=== PATIENT | female | born 1965 | race Caucasian/White ===

== ENCOUNTER 2017-09-14 22:03 | Inpatient (IN) | payer MEDICARE ==
[~2017-09-14] VITALS: Ht 152.4 cm; Wt 72.3 kg
--- NOTE | 2017-09-14 22:19 | ED.ADGEN ---
Past History Past Medical History: Other Adult General Chief Complaint Chief Complaint " I had a tiff with my room mate and then the nurse .. so they sent me here.. They said I threaten my room mate and called her a retard..." [facility] HPI Patient is a 52 year old female who presents with above hx and complaints. Pt. Sent from [facility] for aggressive behavior and refusing meds. Pt. noted by nursing staff as appearing to be hearing voices. ` Pt. has hx of Schizoaffective disorder, COPD, GERD, HTN, Hepatitis, Hypothyroid, Arthritis , Bipolar and Behavior disorder- aggressive. Pt. follow s with Dr. Aldo Garcia. Pt. only complaints in here Rt. foot and ankle hurts. Review of Systems Review of Systems Patient has no complaints except right foot and ankle Constitutional: Denies fever or chills [] Eyes: Denies change in visual acuity, redness, or eye pain [] HENT: Denies nasal congestion or sore throat [] Respiratory: Denies cough or shortness of breath [] Cardiovascular: No additional information not addressed in HPI [] GI: Denies abdominal pain, nausea, vomiting, bloody stools or diarrhea [] : Denies dysuria or hematuria [] Musculoskeletal: Denies back pain or joint pain []Complaints of Rt. foot and ankle pain. Integument: Denies rash or skin lesions [] Neurologic: Denies headache, focal weakness or sensory changes [] Endocrine: Denies polyuria or polydipsia [] Family History Family History Not currently available Current Medications Current Medications See Nursing for home meds Allergies Allergies Allergies Coded Allergies Type Severity Reaction Last Updated Verified Sulfa (Sulfonamide Antibiotics) Allergy Unknown 09/15/17 Yes aspirin Allergy Unknown 09/15/17 Yes codeine Allergy Unknown 09/15/17 Yes Physical Exam Physical Exam Constitutional: , well nourished, no acute distress, non-toxic appearance. [] HENT: Normocephalic, atraumatic, bilateral external ears normal, oropharynx moist, no oral exudates, nose normal. [] Eyes: PERRLA, EOMI, conjunctiva normal, no discharge. [] Neck: Normal range of motion, no tenderness, supple, no stridor. [] Cardiovascular:Heart rate regular rhythm, no murmur [] Lungs & Thorax: Bilateral breath sounds equal at apexes with scattered wheezes on auscultation [] Abdomen: Bowel sounds normal, soft, no tenderness, no masses, no pulsatile masses. [] Skin: Warm, dry, no erythema, no rash. [] Back: No tenderness, no CVA tenderness. [] Extremities: No tenderness, no cyanosis, no clubbing, ROM intact, no edema. [] Except complaints of pain in Rt foot and ankle . Neurologic: Alert and oriented X 3, normal motor function, normal sensory function, no focal deficits noted. [] Psychologic: Affect angry, judgement appears to lack insight to her behavior and anger out burst, mood normal. [] Current Patient Data Vital Signs Vital Signs Date Time Temp Pulse Resp B/P (MAP) Pulse Ox O2 Delivery O2 Flow Rate FiO2 09/15/17 02:30 98.1 72 18 130/80 (97) 99 Room Air Lab Results Laboratory Tests Test 09/14/17 22:37 09/14/17 23:30 Urine Collection Type Unknown Urine Color Straw Urine Clarity Clear Urine pH 8.5 Urine Specific [place] 1.015 Urine Protein Neg (NEG-TRACE) Urine Glucose (UA) Neg mg/dL (NEG) Urine Ketones (Stick) Neg mg/dL (NEG) Urine Blood Neg (NEG) Urine Nitrite Neg (NEG) Urine Bilirubin Neg (NEG) Urine Urobilinogen Dipstick 0.2 mg/dL (0.2 mg/dL) Urine Leukocyte Esterase Neg (NEG) Urine RBC 0 /HPF (0-2) Urine WBC 0 /HPF (0-4) Urine Squamous Epithelial Cells Occ /LPF Urine Bacteria Few /HPF (0-FEW) Urine Opiates Screen Neg (NEG) Urine Methadone Screen Neg (NEG) Urine Barbiturates Neg (NEG) Urine Phencyclidine Screen Neg (NEG) Urine Amphetamine/Methamphetamine Neg (NEG) Urine Benzodiazepines Screen Neg (NEG) Urine Cocaine Screen Neg (NEG) Urine Cannabinoids Screen Neg (NEG) Urine Ethyl Alcohol Neg (NEG) White Blood Count 9.9 x10^3/uL (4.0-11.0) Red Blood Count 4.59 x10^6/uL (3.50-5.40) Hemoglobin 14.2 g/dL (12.0-15.5) Hematocrit 41.8 % (36.0-47.0) Mean Corpuscular Volume 91 fL (79-100) Mean Corpuscular Hemoglobin 31 pg (25-35) Mean Corpuscular Hemoglobin Concent 34 g/dL (31-37) Red Cell Distribution Width 14.3 % (11.5-14.5) Platelet Count 314 x10^3/uL (140-400) Neutrophils (%) (Auto) 49 % (31-73) Lymphocytes (%) (Auto) 38 % (24-48) Monocytes (%) (Auto) 9 % (0-9) Eosinophils (%) (Auto) 4 % (0-3) H Basophils (%) (Auto) 1 % (0-3) Neutrophils # (Auto) 4.9 x10^3uL (1.8-7.7) Lymphocytes # (Auto) 3.7 x10^3/uL (1.0-4.8) Monocytes # (Auto) 0.9 x10^3/uL (0.0-1.1) Eosinophils # (Auto) 0.4 x10^3/uL (0.0-0.7) Basophils # (Auto) 0.1 x10^3/uL (0.0-0.2) Sodium Level 138 mmol/L (136-145) Potassium Level 3.8 mmol/L (3.5-5.1) Chloride Level 105 mmol/L (98-107) Carbon Dioxide Level 25 mmol/L (21-32) Anion Gap 8 (6-14) Blood Urea Nitrogen 10 mg/dL (7-20) Creatinine 0.7 mg/dL (0.6-1.0) Estimated GFR (Cockcroft-Gault) 87.5 Glucose Level 79 mg/dL (70-99) Calcium Level 9.6 mg/dL (8.5-10.1) Magnesium Level 2.1 mg/dL (1.8-2.4) Total Bilirubin 0.2 mg/dL (0.2-1.0) Direct Bilirubin 0.1 mg/dL (0.0-0.2) Aspartate Amino Transferase (AST) 17 U/L (15-37) Alanine Aminotransferase (ALT) 20 U/L (14-59) Alkaline Phosphatase 53 U/L (46-116) Total Protein 7.3 g/dL (6.4-8.2) Albumin 3.5 g/dL (3.4-5.0) Ethyl Alcohol Level < 10 mg/dL (0-10) EKG EKG My interpretation of EKG shows a sinus rhythm at 61 bpm. This was nonspecific anterior septal changes. But no findings acute STEMI of contralateral changes.[] Radiology/Procedures Radiology/Procedures My interpretation of marked degenerative joint changes in right foot. My interpretation of chest x-ray shows mild COPD type pattern. Nl cardiac silhouette[] Course & Med Decision Making Course & Med Decision Making Pertinent Labs and Imaging studies reviewed. (See chart for details). Patient accepted [facility] by Dr. Richardson. [] Final Impression Final Impression 1. Hx of Behavior -Aggressive[] 2. History of his schizoaffective disorder 3. Bipolar 4. DJD 5. Borderline personality 6. Dementia Problems: Dragon Disclaimer Dragon Disclaimer This electronic medical record was generated, in whole or in part, using a voice recognition dictation system. MIKA FIELDS MD Sep 14, 2017 22:19
[2017-09-14 22:56] LABS: BARBITURATES NEG (NEG); BENZODIAZEPINES NEG (NEG); CANNABINOIDS NEG (NEG); COCAINE NEG (NEG); METHADONE NEG (NEG); OPIATES NEG (NEG); PHENCYCLIDINE NEG (NEG)
[2017-09-14 22:58] LABS: BACTERIA,URINE FEW /HPF (0-FEW); BILIRUBIN,URINE NEG (NEG); CLARITY,URINE CLEAR; COLOR,URINE STRAW; GLUCOSE,URINE NEG (NEG); NITRITE,URINE NEG (NEG); RBC,URINE 0 /HPF (0-2); SQUAMOUS EPITHELIAL CELL,UR OCC /LPF; UROBILINOGEN,URINE 0.2 mg/dL (0.2 mg/dL); WBC,URINE 0 /HPF (0-4)
[2017-09-14 23:00] LABS: AMPHETAMINE/METHAMPHETAMINE NEG (NEG)
--- NOTE | 2017-09-14 23:31 | RAD ---
CT head without intravenous contrast History: Altered mental status. Comparison: None. Technique: Axial images are obtained of the head from the skull base through the vertex without IV contrast. Exposure: One or more of the following individualized dose reduction techniques were utilized for this examination: 1. Automated exposure control 2. Adjustment of the mA and/or kV according to patient size 3. Use of iterative reconstruction technique Findings: The ventricles are appropriate in size, shape, and location for the patient's age. No obvious intracranial mass, mass-effect, midline shift, hemorrhage or obvious acute infarction is identified. Basilar cisterns are patent. Bone windows demonstrate no acute calvarial abnormality. The visualized paranasal sinuses appear clear. Impression: No acute intracranial process. Please note that CT can be relatively insensitive to acute ischemic infarction for up to 24 hours after symptom onset. Electronically signed by: Trey Baig MD (09/14/2017 11:28 PM) [facility]
[2017-09-14 23:54] LABS: BASO # 0.1 x10^3/uL (0.0-0.2); BASO % 1 % (0-3); EOS # 0.4 x10^3/uL (0.0-0.7); EOS % 4 % (0-3); HEMATOCRIT 41.8 % (36.0-47.0); HEMOGLOBIN 14.2 g/dL (12.0-15.5); LYMPH # 3.7 x10^3/uL (1.0-4.8); LYMPH % 38 % (24-48); MEAN CORPUSCULAR HEMOGLOBIN 31 pg (25-35); MEAN CORPUSCULAR HGB CONC 34 g/dL (31-37); MEAN CORPUSCULAR VOLUME 91 fL (79-100); MONO # 0.9 x10^3/uL (0.0-1.1); MONO % 9 % (0-9); NEUT # 4.9 x10^3uL (1.8-7.7); NEUT % 49 % (31-73); PLATELET COUNT 314 x10^3/uL (140-400); RED BLOOD COUNT 4.59 x10^6/uL (3.50-5.40); RED CELL DISTRIBUTION WIDTH 14.3 % (11.5-14.5); WHITE BLOOD COUNT 9.9 x10^3/uL (4.0-11.0)
[2017-09-15 00:06] LABS: ALBUMIN 3.5 g/dL (3.4-5.0); CALCIUM 9.6 mg/dL (8.5-10.1); CREATININE 0.7 mg/dL (0.6-1.0); DIRECT BILIRUBIN 0.1 mg/dL (0.0-0.2); GFR 87.5; MAGNESIUM 2.1 mg/dL (1.8-2.4); POTASSIUM 3.8 mmol/L (3.5-5.1); TOTAL BILIRUBIN 0.2 mg/dL (0.2-1.0); TOTAL PROTEIN 7.3 g/dL (6.4-8.2)
[2017-09-15] MEDS ORDERED: LITH300C PO (03:28)
[2017-09-15] MEDS ORDERED: CHOL10003 PO (03:28)
[2017-09-15] MEDS ORDERED: DIVA500T2 PO (03:28)
[2017-09-15] MEDS ORDERED: HALO10TA PO (03:28)
[2017-09-15] MEDS ORDERED: TRAM50TA PO (03:28)
[2017-09-15] MEDS ORDERED: CETI10TA16 PO (03:28)
[2017-09-15] MEDS ORDERED: FENO48TA2 PO (03:28)
[2017-09-15] MEDS ORDERED: RANI150T6 PO (03:28)
[2017-09-15] MEDS ORDERED: LEVO75TA5 PO (03:28)
[2017-09-15] MEDS ORDERED: GUAI-66 PO (03:28)
[2017-09-15] MEDS ORDERED: MEDR150D3 IM (03:28)
[2017-09-15] MEDS ORDERED: ACET325T9 PO (03:28)
[2017-09-15] MEDS ORDERED: POLY119P4 PO (03:28)
[2017-09-15] MEDS ORDERED: QUET100T4 PO (03:28)
[2017-09-15] MEDS ORDERED: OMEG-33 PO (03:28)
[2017-09-15] MEDS ORDERED: GABA600T2 PO (03:28)
[2017-09-15] MEDS ORDERED: ASEN5TAB7 SL (03:28)
[2017-09-15] MEDS ORDERED: PALI6TAB3 PO (03:28)
[2017-09-15] MEDS ORDERED: ALBU18HF IH (03:28)
[2017-09-15] MEDS ORDERED: BENZ1TAB5 PO (03:28)
[2017-09-15] MEDS ORDERED: SENN-79 PO (03:28)
[2017-09-15] MEDS ORDERED: DONE5TAB56 PO (03:28)
[2017-09-15] MEDS ORDERED: DIVA250T4 PO (03:28)
--- NOTE | 2017-09-15 03:31 | EKG ---
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
[2017-09-15 04:20] VITALS: BP 128/85
[2017-09-15] MEDS ORDERED: NICOTINE 14MG PATCH. TD ONE (04:30)
[2017-09-15 05:05] LABS: VAL ACID 104 mcg/mL (50-100)
[2017-09-15] MEDS ORDERED: ALBUTEROL SULFATE 8GM INHALER. IH PRN (07:45)
[2017-09-15] MEDS ORDERED: guaiFENesin 300 MG/15 ML LIQUID PO PRN (07:45)
[2017-09-15] MEDS ORDERED: MEDROXYPROGESTERONE ACETATE 150 MG IM SCH (07:45)
[2017-09-15] MEDS ORDERED: ALBUTEROL SULFATE 2.5 MG/3 ML NEBU. NEB PRN (08:00)
[2017-09-15] MEDS: DIVALPROEX SODIUM 250 MG TABLET.DR. PO SCH ×2 (08:10→20:41)
[2017-09-15] MEDS: OMEGA-3 FATTY ACIDS/FISH OIL 1,000 MG CAPSULE. PO SCH ×3 (08:13→21:00)
[2017-09-15] MEDS: LITHIUM CARBONATE 150 MG CAPSULE. PO SCH ×2 (08:13→20:38)
[2017-09-15] MEDS: risperiDONE 1 MG TABLET. PO SCH ×2 (08:13→20:39)
[2017-09-15] MEDS: FAMOTIDINE 20 MG TABLET PO SCH ×2 (08:13→20:38)
[2017-09-15] MEDS: CHOLECALCIFEROL (VITAMIN D3) 1,000 UNIT TABLET PO SCH (08:13)
[2017-09-15] MEDS: SENNOSIDES 8.6 MG TABLET PO SCH ×2 (08:13→20:38)
[2017-09-15] MEDS: CETIRIZINE HCL 10 MG TABLET PO SCH (08:13)
[2017-09-15] MEDS: BENZTROPINE MESYLATE 1 MG TABLET PO SCH ×2 (08:13→20:38)
[2017-09-15] MEDS: HALOPERIDOL 5 MG TABLET PO SCH ×2 (08:13→20:38)
[2017-09-15] MEDS: DONEPEZIL HCL 5 MG TABLET. PO SCH (08:14)
[2017-09-15] MEDS: LEVOTHYROXINE 75 MCG TABLET PO SCH (08:14)
--- NOTE | 2017-09-15 08:58 | RAD ---
Three-view right foot radiographs 09/14/2017 Clinical history: Right foot pain. Injury one year ago. AP, lateral and oblique digital radiographs of the right foot were obtained. No fracture or dislocation of the right foot is seen. Moderate hallux valgus deformity is noted. Mild to moderate degenerative changes are seen scattered throughout the interphalangeal joints and first MTP joint along the first tarsometatarsal joint of the right foot. Minimal enthesophyte formation is seen involving the posterior right calcaneus. Impression: Degenerative changes are seen involving the right foot as outlined above. No acute osseous abnormality is seen.
[2017-09-15] MEDS ORDERED: NON FORMULARY ITEM (Asenapine Maleate (Saphris) 5 MG) SL SCH (09:00)
--- NOTE | 2017-09-15 09:00 | RAD ---
AP portable chest radiograph 09/14/2017 Clinical History: Cough. An AP portable erect digital radiograph of the chest was obtained. No previous studies are available for comparison. The cardiac silhouette is normal in size. Atherosclerotic calcification of the thoracic aorta is seen. No acute pulmonary infiltrate is noted. No pneumothorax or pleural effusion is seen. An old healed left eighth rib fracture is noted. Impression: No acute abnormality is seen.
[2017-09-15 11:27] LABS: LI 0.7 mmol/L (0.6-1.2)
--- NOTE | 2017-09-15 11:44 | PDOC ---
Exam Abe Demential Exam: Abe Note: Please also refer to the separate dictated note~for this date of service dictated separately.~Patient seen individually. Discussed the patient with Nursing staff reviewed the chart.~Reviewed interim history and current functioning. Reviewed vital signs,~Labs/ Radiology~and current medications noted below. Continue current treatment with the changes noted in the dictated addendum note Assessment: Vital Signs: Vital Signs Date Time Temp Pulse Resp B/P (MAP) Pulse Ox O2 Delivery O2 Flow Rate FiO2 09/15/17 04:20 98.6 70 18 128/85 (99) 97 09/15/17 02:30 Room Air I&O Intake and Output 09/16/17 07:00 Intake Total 0 ml Balance 0 ml Intake Oral 0 ml Labs: Laboratory Tests Test 09/14/17 22:37 09/14/17 23:30 09/15/17 04:30 Urine Collection Type Unknown Urine Color Straw Urine Clarity Clear Urine pH 8.5 Urine Specific [place] 1.015 Urine Protein Neg (NEG-TRACE) Urine Glucose (UA) Neg mg/dL (NEG) Urine Ketones (Stick) Neg mg/dL (NEG) Urine Blood Neg (NEG) Urine Nitrite Neg (NEG) Urine Bilirubin Neg (NEG) Urine Urobilinogen Dipstick 0.2 mg/dL (0.2 mg/dL) Urine Leukocyte Esterase Neg (NEG) Urine RBC 0 /HPF (0-2) Urine WBC 0 /HPF (0-4) Urine Squamous Epithelial Cells Occ /LPF Urine Bacteria Few /HPF (0-FEW) Urine Opiates Screen Neg (NEG) Urine Methadone Screen Neg (NEG) Urine Barbiturates Neg (NEG) Urine Phencyclidine Screen Neg (NEG) Urine Amphetamine/Methamphetamine Neg (NEG) Urine Benzodiazepines Screen Neg (NEG) Urine Cocaine Screen Neg (NEG) Urine Cannabinoids Screen Neg (NEG) Urine Ethyl Alcohol Neg (NEG) White Blood Count 9.9 x10^3/uL (4.0-11.0) Red Blood Count 4.59 x10^6/uL (3.50-5.40) Hemoglobin 14.2 g/dL (12.0-15.5) Hematocrit 41.8 % (36.0-47.0) Mean Corpuscular Volume 91 fL (79-100) Mean Corpuscular Hemoglobin 31 pg (25-35) Mean Corpuscular Hemoglobin Concent 34 g/dL (31-37) Red Cell Distribution Width 14.3 % (11.5-14.5) Platelet Count 314 x10^3/uL (140-400) Neutrophils (%) (Auto) 49 % (31-73) Lymphocytes (%) (Auto) 38 % (24-48) Monocytes (%) (Auto) 9 % (0-9) Eosinophils (%) (Auto) 4 % (0-3) H Basophils (%) (Auto) 1 % (0-3) Neutrophils # (Auto) 4.9 x10^3uL (1.8-7.7) Lymphocytes # (Auto) 3.7 x10^3/uL (1.0-4.8) Monocytes # (Auto) 0.9 x10^3/uL (0.0-1.1) Eosinophils # (Auto) 0.4 x10^3/uL (0.0-0.7) Basophils # (Auto) 0.1 x10^3/uL (0.0-0.2) Sodium Level 138 mmol/L (136-145) Potassium Level 3.8 mmol/L (3.5-5.1) Chloride Level 105 mmol/L (98-107) Carbon Dioxide Level 25 mmol/L (21-32) Anion Gap 8 (6-14) Blood Urea Nitrogen 10 mg/dL (7-20) Creatinine 0.7 mg/dL (0.6-1.0) Estimated GFR (Cockcroft-Gault) 87.5 Glucose Level 79 mg/dL (70-99) Calcium Level 9.6 mg/dL (8.5-10.1) Magnesium Level 2.1 mg/dL (1.8-2.4) Total Bilirubin 0.2 mg/dL (0.2-1.0) Direct Bilirubin 0.1 mg/dL (0.0-0.2) Aspartate Amino Transferase (AST) 17 U/L (15-37) Alanine Aminotransferase (ALT) 20 U/L (14-59) Alkaline Phosphatase 53 U/L (46-116) Total Protein 7.3 g/dL (6.4-8.2) Albumin 3.5 g/dL (3.4-5.0) Thyroid Stimulating Hormone (TSH) 0.088 uIU/mL (0.358-3.740) Ethyl Alcohol Level < 10 mg/dL (0-10) Iron Level 51 ug/dL (50-170) Total Iron Binding Capacity 563 ug/dL (250-450) H Iron Saturation 9 % (15-34) L Triglycerides Level 203 mg/dL (0-150) H Cholesterol Level 163 mg/dL (0-200) LDL Cholesterol, Calculated 85 mg/dL (0-100) VLDL Cholesterol, Calculated 40 mg/dL (0-40) Non-HDL Cholesterol Calculated 125 mg/dL (0-129) HDL Cholesterol 38 mg/dL (40-60) L Cholesterol/HDL Ratio 4.0 Valproic Acid Level 104 mcg/mL (50-100) H Valproic Acid Last Dose Date 09/14/17 Valproic Acid Last Dose Time 1999 [place] Level 0.7 mmol/L (0.6-1.2) [place] Last Dose Date 09/14/17 [place] Last Dose Time 1999 Current Medications: Meds: Current Medications Nicotine (Nicoderm Cq 14mg) 1 patch DAILY TD ; Start 09/16/17 at 09:00 Benztropine Mesylate (Cogentin) 1 mg BID PO Last administered on 09/15/17 08: 13; Start 09/15/17 at 09:00 Divalproex Sodium (Depakote) 250 mg DAILY PO ; Start 09/15/17 at 09:00 Donepezil HCl (Aricept) 5 mg DAILY PO Last administered on 09/15/17 08:14; Start 09/15/17 at 09:00 Non-Formulary Medication 5 mg BID SL ; Start 09/15/17 at 09:00; Stop 09/15/17 at 09:00; Status DC Divalproex Sodium (Depakote) 1,000 mg QHS PO ; Start 09/15/17 at 21:00 Haloperidol (Haldol) 10 mg BID PO Last administered on 09/15/17 08:13; Start 09/15/17 at 09:00 [place] Carbonate 300 mg BID PO Last administered on 09/15/17 08:13; Start 09/15/17 at 09:00 Risperidone (RisperDAL) 3 mg BID PO Last administered on 09/15/17 08:13; Start 09/15/17 at 09:00 Nicotine (Nicoderm Cq 14mg) 1 patch 1X ONCE TD Last administered on 04:38; Start 09/15/17 at 04:30; Stop 09/15/17 at 04:35; Status DC Olanzapine (ZyPREXA ZYDIS) 2.5 mg PRN Q2HR PRN PO PSYCHOSIS; Start 09/15/17 at 05:15 Acetaminophen (Tylenol) 650 mg PRN Q4HRS PRN PO PAIN / TEMP; Start 09/15/17 at 07:45 Albuterol Sulfate (Ventolin Hfa) 1 puff PRN Q6HRS PRN IH FOR ASTHMA; Start at 07:45; Stop 09/15/17 at 08:06; Status DC Cetirizine HCl (ZyrTEC) 10 mg DAILY PO Last administered on 09/15/17 08:13; Start 09/15/17 at 09:00 Vitamin D (Vitamin D3) 2,000 unit DAILY PO Last administered on 09/15/17 08: 13; Start 09/15/17 at 09:00 Fenofibrate (Tricor) 48 mg QHS PO ; Start 09/15/17 at 21:00 Guaifenesin (Robitussin) 100 mg PRN Q4HRS PRN PO COUGH; Start 09/15/17 at 07: 45 Levothyroxine Sodium (Synthroid) 75 mcg DAILY07 PO Last administered on 08:14; Start 09/15/17 at 08:00 Polyethylene Glycol (miraLAX) 17 gm QPM PO ; Start 09/15/17 at 18:00 Sennosides (Senna) 8.6 mg BID PO Last administered on 09/15/17 08:13; Start 09/15/17 at 09:00 Tramadol HCl (Ultram) 50 mg Q6HRS PO ; Start 09/15/17 at 12:00 Gabapentin (Neurontin) 600 mg QHS PO ; Start 09/15/17 at 21:00 Non-Formulary Medication 150 mg [id number] IM ; Start 09/15/17 at 07:45; Stop at 07:53; Status DC Fish Oil (Fish Oil) 1,000 mg BID PO Last administered on 09/15/17 08:13; Start 09/15/17 at 09:00 Famotidine (Pepcid) 20 mg BID PO Last administered on 09/15/17t 08:13; Start 09/15/17 at 09:00 Albuterol Sulfate (Ventolin) 2.5 mg PRN Q6HRS PRN NEB SHORTNESS OF BREATH; Start 09/15/17 at 08:00 Active Scripts Active Reported Zantac (Ranitidine Hcl) 150 Mg Tablet 150 Mg PO BID Vitamin D3 (Cholecalciferol (Vitamin D3)) 1,000 Unit Tablet 2,000 Unit PO DAILY Tylenol (Acetaminophen) 325 Mg Tablet 650 Mg PO PRN Q4HRS PRN Senna (Sennosides) 8.6 Mg Tablet 8.6 Mg PO BID Saphris (Asenapine Maleate) 5 Mg Tab.subl 5 Mg SL BID Invega (Paliperidone) 6 Mg Tab.er.24 6 Mg PO DAILY Miralax (Polyethylene Glycol 3350) 119 Gm Powder 17 Gm PO QPM [place] Carbonate 300 Mg Capsule 300 Mg PO BID Levothyroxine Sodium 75 Mcg Tablet 75 Mcg PO DAILY07 Haloperidol 10 Mg Tablet 10 Mg PO BID Mag-Tussin (Guaifenesin) 100 Mg/5 Ml Liquid 100 Mg PO PRN Q4HRS PRN Gabapentin 600 Mg Tablet 600 Mg PO QHS [place] 3 1,000 Mg Softgel ([place]-3 Fatty Acids/Fish Oil) 1 Each Capsule 1,000 Mg PO BID Fenofibrate (Fenofibrate Nanocrystallized) 48 Mg Tablet 48 Mg PO QHS Aricept (Donepezil Hcl) 5 Mg Tablet 5 Mg PO DAILY Depakote (Divalproex Sodium) 500 Mg Tablet.dr 1,000 Mg PO QHS Depakote (Divalproex Sodium) 250 Mg Tablet.dr 250 Mg PO DAILY Depo-Provera (Medroxyprogesterone Acetate) 150 Mg/1 Ml Disp.syrin 150 Mg IM [id number] Cetirizine Hcl 10 Mg Tablet 10 Mg PO DAILY Benztropine Mesylate 1 Mg Tablet 1 Mg PO BID Ventolin Hfa Inhaler (Albuterol Sulfate) 18 Gm Hfa.aer.ad 1 Puff IH PRN Q6HRS PRN Tramadol Hcl (Tramadol HCl) 50 Mg Tablet 50 Mg PO Q6HRS Diagnosis: Problems: (1) Schizoaffective disorder, chronic condition with acute exacerbation (2) Bipolar affective, mixed, sev w/ psych (3) Anxiety disorder JEREMIAS FOSTER MD Sep 15, 2017 11:44
[2017-09-15] MEDS: traMADol 50 MG TABLET PO SCH ×3 (12:00→19:06)
[2017-09-15 13:10] LABS: T3 TOTAL 121 ng/dL (71-180); THYROXINE 10.4 ug/dL (4.5-12.0)
[2017-09-15 16:03] VITALS: BP 108/65
[2017-09-15] MEDS: POLYETHYLENE GLYCOL 3350 17 GM PACKET. PO SCH (18:00)
[2017-09-15 18:07] LABS: HEMOGLOBIN A1C 4.5 % (4.8-5.6)
--- NOTE | 2017-09-15 18:45 | HP ---
ADMIT DATE: 09/15/2017 PSYCHIATRIC ADMISSION HISTORY AND EVALUATION IDENTIFYING DATA: The patient is a 52-year-old female, referred to the Emergency Room at [facility] from ____ [facility]irement by Dr. Stephen Garcia, her primary care physician on account of worsening psychosis and acute exacerbation of her schizoaffective disorder, bipolar type, mixed with psychotic features. The patient had been yelling, threatening to kill other residence at the assisted, hearing voices, refusing medications at times. She had significant sleep and appetite changes. Behaviors were extremely labile, aggressive, dangerous at the assisted. She failed multiple prior psychiatric hospitalizations including [facility] at different times. I had been called with the nursing staffs around midnight and had 2 or 3 conversation with the nursing staff to evaluate criteria for admission. Initially, the patient minimized most of her symptoms. Then, we received further information from the department administrator at the assisted about the above dangerous behavior, threatening to kill others. I had recommended that she be seen by tele psychiatry ____ in the ER and then if they are recommend inpatient psychiatric hospitalization, we would go ahead with it, which she seemed to well meet all criteria for inpatient admission and no [facility] hospital beds are available at this time. PAST PSYCHIATRIC HISTORY: As above. PAST MEDICAL HISTORY: ____ acute hepatitis C, COPD, GERD, schizoaffective disorder, bunions, hypertension, pyogenic granuloma, tinea unguium, hypothyroidism, dementia. ACCU-CHEKS: None. DIET: Regular. CODE STATUS: Full. AMBULATES: Ad heidi. UA negative in the ER. CURRENT PSYCHOTROPICS: Cogentin 1 mg b.i.d., Depo-Provera 150 mg IM q. 3 months, Depakote 250 mg a.m. and 1000 mg at bedtime, Haldol 10 mg b.i.d., lithium carbonate 300 mg b.i.d., Invega 6 mg daily, Saphris 5 mg sublingual b.i.d., Zyprexa was added p.r.n. Valproic acid level is 104 despite being slightly elevated given her diagnosis and severity of her diagnosis is adequate for now since rest of the enzymes is unremarkable. I am going ahead and stopping the Saphris since we do not have it available, substituting the Invega with Risperdal equivalent dosage recommended by the pharmacy staff again as noted below, starting her on Clozaril for the extent of her psychosis and nonresponse to multiple antipsychotics. FAMILY HISTORY: Noncontributory. SOCIAL HISTORY: No alcohol, drug abuse, physical, sexual or elder abuse history is noted. She is not known to be a perpetrator. MENTAL STATUS EXAMINATION: The patient was seen individually morning of 09/15/2017. She is quite sedated, lying in bed, often refusing to answer questions, but knew it was 2016 and it was August. She was not very verbal. Short term memory, does have some deficits, but all of these will have to be reassessed once she is being evaluated baseline. Insight limited, judgment marginal, language function intact. She is quite delusional, suspicious, restless, distractable. LABORATORY DATA: Reviewed. REACTION TO HOSPITALIZATION: The patient accepted ____ at the assisted. IMPRESSION: Schizoaffective disorder, bipolar type, mixed with psychotic features; bipolar 1 disorder, mixed with psychotic features, acute exacerbation; impulse control disorder, unspecified; anxiety disorder, unspecified; Rest of diagnoses as above. PLAN: Admit to geropsychiatry unit at [facility]. Request Dr. Mas/Dr. Castillo to follow the patient from a medical standpoint. I will see the patient daily individually from a psychiatric standpoint. We will start Clozaril 25 mg p.o. at bedtime. Check CBC, CMP, absolute neutrophil counts every Sunday. Change the Invega 6 mg a day to Risperdal 3 mg twice a day. Needs to go ahead and stop the Saphris. Continue lithium, consider tapering the Haldol once the Clozaril is effective. Reviewed drug interactions. Risk/benefit ratio favors no further change at this time. JEREMIAS FOSTER MD DR: REX/maite JOB#: [id number] / [id number]
[2017-09-15] MEDS: cloZAPine 25 MG TABLET PO SCH (20:40)
[2017-09-15] MEDS: FENOFIBRATE NANOCRYSTALLIZED 48 MG TABLET PO SCH (20:43)
[2017-09-15] MEDS: GABAPENTIN 300 MG CAPSULE. PO SCH (20:43)
--- NOTE | 2017-09-15 21:47 | PDOC ---
Exam Abe Demential Exam: Abe Note: Please also refer to the separate dictated note~for this date of service dictated separately.~Patient seen individually. Discussed the patient with Nursing staff reviewed the chart.~Reviewed interim history and current functioning. Reviewed vital signs,~Labs/ Radiology~and current medications noted below. Continue current treatment with the changes noted in the dictated addendum note Assessment: Vital Signs: Vital Signs Date Time Temp Pulse Resp B/P (MAP) Pulse Ox O2 Delivery O2 Flow Rate FiO2 09/15/17 16:03 98.7 73 17 108/65 (79) 95 09/15/17 02:30 Room Air I&O Intake and Output 09/16/17 07:00 Intake Total 780 ml Balance 780 ml Intake Oral 780 ml Labs: Laboratory Tests Test 09/14/17 22:37 09/14/17 23:30 09/15/17 02:37 09/15/17 04:30 Urine Collection Type Unknown Urine Color Straw Urine Clarity Clear Urine pH 8.5 Urine Specific [place] 1.015 Urine Protein Neg (NEG-TRACE) Urine Glucose (UA) Neg mg/dL (NEG) Urine Ketones (Stick) Neg mg/dL (NEG) Urine Blood Neg (NEG) Urine Nitrite Neg (NEG) Urine Bilirubin Neg (NEG) Urine Urobilinogen Dipstick 0.2 mg/dL (0.2 mg/dL) Urine Leukocyte Esterase Neg (NEG) Urine RBC 0 /HPF (0-2) Urine WBC 0 /HPF (0-4) Urine Squamous Epithelial Cells Occ /LPF Urine Bacteria Few /HPF (0-FEW) Urine Opiates Screen Neg (NEG) Urine Methadone Screen Neg (NEG) Urine Barbiturates Neg (NEG) Urine Phencyclidine Screen Neg (NEG) Urine Amphetamine/Methamphetamine Neg (NEG) Urine Benzodiazepines Screen Neg (NEG) Urine Cocaine Screen Neg (NEG) Urine Cannabinoids Screen Neg (NEG) Urine Ethyl Alcohol Neg (NEG) White Blood Count 9.9 x10^3/uL (4.0-11.0) Red Blood Count 4.59 x10^6/uL (3.50-5.40) Hemoglobin 14.2 g/dL (12.0-15.5) Hematocrit 41.8 % (36.0-47.0) Mean Corpuscular Volume 91 fL (79-100) Mean Corpuscular Hemoglobin 31 pg (25-35) Mean Corpuscular Hemoglobin Concent 34 g/dL (31-37) Red Cell Distribution Width 14.3 % (11.5-14.5) Platelet Count 314 x10^3/uL (140-400) Neutrophils (%) (Auto) 49 % (31-73) Lymphocytes (%) (Auto) 38 % (24-48) Monocytes (%) (Auto) 9 % (0-9) Eosinophils (%) (Auto) 4 % (0-3) H Basophils (%) (Auto) 1 % (0-3) Neutrophils # (Auto) 4.9 x10^3uL (1.8-7.7) Lymphocytes # (Auto) 3.7 x10^3/uL (1.0-4.8) Monocytes # (Auto) 0.9 x10^3/uL (0.0-1.1) Eosinophils # (Auto) 0.4 x10^3/uL (0.0-0.7) Basophils # (Auto) 0.1 x10^3/uL (0.0-0.2) Sodium Level 138 mmol/L (136-145) Potassium Level 3.8 mmol/L (3.5-5.1) Chloride Level 105 mmol/L (98-107) Carbon Dioxide Level 25 mmol/L (21-32) Anion Gap 8 (6-14) Blood Urea Nitrogen 10 mg/dL (7-20) Creatinine 0.7 mg/dL (0.6-1.0) Estimated GFR (Cockcroft-Gault) 87.5 Glucose Level 79 mg/dL (70-99) Calcium Level 9.6 mg/dL (8.5-10.1) Magnesium Level 2.1 mg/dL (1.8-2.4) Total Bilirubin 0.2 mg/dL (0.2-1.0) Direct Bilirubin 0.1 mg/dL (0.0-0.2) Aspartate Amino Transferase (AST) 17 U/L (15-37) Alanine Aminotransferase (ALT) 20 U/L (14-59) Alkaline Phosphatase 53 U/L (46-116) Total Protein 7.3 g/dL (6.4-8.2) Albumin 3.5 g/dL (3.4-5.0) Thyroid Stimulating Hormone (TSH) 0.088 uIU/mL (0.358-3.740) Ethyl Alcohol Level < 10 mg/dL (0-10) 25-Hydroxy Vitamin D Total Pending Thyroxine (T4) 10.4 ug/dL (4.5-12.0) Total Triiodothyronine (TT3) 121 ng/dL (71-180) RPR Titer Additional Testing Pending Hemoglobin A1c 4.5 % (4.8-5.6) L Iron Level 51 ug/dL (50-170) Total Iron Binding Capacity 563 ug/dL (250-450) H Iron Saturation 9 % (15-34) L Triglycerides Level 203 mg/dL (0-150) H Cholesterol Level 163 mg/dL (0-200) LDL Cholesterol, Calculated 85 mg/dL (0-100) VLDL Cholesterol, Calculated 40 mg/dL (0-40) Non-HDL Cholesterol Calculated 125 mg/dL (0-129) HDL Cholesterol 38 mg/dL (40-60) L Cholesterol/HDL Ratio 4.0 Valproic Acid Level 104 mcg/mL (50-100) H Valproic Acid Last Dose Date 09/14/17 Valproic Acid Last Dose Time 1999 [place] Level 0.7 mmol/L (0.6-1.2) [place] Last Dose Date 09/14/17 [place] Last Dose Time 1999 Current Medications: Meds: Current Medications Nicotine (Nicoderm Cq 14mg) 1 patch DAILY TD ; Start 09/16/17 at 09:00 Benztropine Mesylate (Cogentin) 1 mg BID PO Last administered on 09/15/17 20: 38; Start 09/15/17 at 09:00 Divalproex Sodium (Depakote) 250 mg DAILY PO ; Start 09/15/17 at 09:00 Donepezil HCl (Aricept) 5 mg DAILY PO Last administered on 09/15/17 08:14; Start 09/15/17 at 09:00 Non-Formulary Medication 5 mg BID SL ; Start 09/15/17 at 09:00; Stop 09/15/17 at 09:00; Status DC Divalproex Sodium (Depakote) 1,000 mg QHS PO Last administered on 09/15/17 20 :41; Start 09/15/17 at 21:00 Haloperidol (Haldol) 10 mg BID PO Last administered on 09/15/17 20:38; Start 09/15/17 at 09:00 [place] Carbonate 300 mg BID PO Last administered on 09/15/17 20:38; Start 09/15/17 at 09:00 Risperidone (RisperDAL) 3 mg BID PO Last administered on 09/15/17 20:39; Start 09/15/17 at 09:00 Nicotine (Nicoderm Cq 14mg) 1 patch 1X ONCE TD Last administered on 04:38; Start 09/15/17 at 04:30; Stop 09/15/17 at 04:35; Status DC Olanzapine (ZyPREXA ZYDIS) 2.5 mg PRN Q2HR PRN PO PSYCHOSIS; Start 09/15/17 at 05:15 Acetaminophen (Tylenol) 650 mg PRN Q4HRS PRN PO PAIN / TEMP; Start 09/15/17 at 07:45 Albuterol Sulfate (Ventolin Hfa) 1 puff PRN Q6HRS PRN IH FOR ASTHMA; Start at 07:45; Stop 09/15/17 at 08:06; Status DC Cetirizine HCl (ZyrTEC) 10 mg DAILY PO Last administered on 09/15/17 08:13; Start 09/15/17 at 09:00 Vitamin D (Vitamin D3) 2,000 unit DAILY PO Last administered on 09/15/17 08: 13; Start 09/15/17 at 09:00 Fenofibrate (Tricor) 48 mg QHS PO Last administered on 09/15/17 20:43; Start 09/15/17 at 21:00 Guaifenesin (Robitussin) 100 mg PRN Q4HRS PRN PO COUGH; Start 09/15/17 at 07: 45 Levothyroxine Sodium (Synthroid) 75 mcg DAILY07 PO Last administered on 08:14; Start 09/15/17 at 08:00 Polyethylene Glycol (miraLAX) 17 gm QPM PO Last administered on 09/15/17 18: 00; Start 09/15/17 at 18:00 Sennosides (Senna) 8.6 mg BID PO Last administered on 09/15/17 20:38; Start 09/15/17 at 09:00 Tramadol HCl (Ultram) 50 mg Q6HRS PO Last administered on 09/15/17 19:06; Start 09/15/17 at 12:00 Gabapentin (Neurontin) 600 mg QHS PO Last administered on 09/15/17 20:43; Start 09/15/17 at 21:00 Non-Formulary Medication 150 mg [id number] IM ; Start 09/15/17 at 07:45; Stop at 07:53; Status DC Fish Oil (Fish Oil) 1,000 mg BID PO Last administered on 09/15/17 20:38; Start 09/15/17 at 09:00 Famotidine (Pepcid) 20 mg BID PO Last administered on 09/15/17 20:38; Start 09/15/17 at 09:00 Albuterol Sulfate (Ventolin) 2.5 mg PRN Q6HRS PRN NEB SHORTNESS OF BREATH; Start 09/15/17 at 08:00 Clozapine (Clozaril) 25 mg HS PO Last administered on 09/15/17 20:40; Start 09/15/17 at 21:00 Active Scripts Active Reported Zantac (Ranitidine Hcl) 150 Mg Tablet 150 Mg PO BID Vitamin D3 (Cholecalciferol (Vitamin D3)) 1,000 Unit Tablet 2,000 Unit PO DAILY Tylenol (Acetaminophen) 325 Mg Tablet 650 Mg PO PRN Q4HRS PRN Senna (Sennosides) 8.6 Mg Tablet 8.6 Mg PO BID Saphris (Asenapine Maleate) 5 Mg Tab.subl 5 Mg SL BID Invega (Paliperidone) 6 Mg Tab.er.24 6 Mg PO DAILY Miralax (Polyethylene Glycol 3350) 119 Gm Powder 17 Gm PO QPM [place] Carbonate 300 Mg Capsule 300 Mg PO BID Levothyroxine Sodium 75 Mcg Tablet 75 Mcg PO DAILY07 Haloperidol 10 Mg Tablet 10 Mg PO BID Mag-Tussin (Guaifenesin) 100 Mg/5 Ml Liquid 100 Mg PO PRN Q4HRS PRN Gabapentin 600 Mg Tablet 600 Mg PO QHS [place] 3 1,000 Mg Softgel ([place]-3 Fatty Acids/Fish Oil) 1 Each Capsule 1,000 Mg PO BID Fenofibrate (Fenofibrate Nanocrystallized) 48 Mg Tablet 48 Mg PO QHS Aricept (Donepezil Hcl) 5 Mg Tablet 5 Mg PO DAILY Depakote (Divalproex Sodium) 500 Mg Tablet.dr 1,000 Mg PO QHS Depakote (Divalproex Sodium) 250 Mg Tablet.dr 250 Mg PO DAILY Depo-Provera (Medroxyprogesterone Acetate) 150 Mg/1 Ml Disp.syrin 150 Mg IM [id number] Cetirizine Hcl 10 Mg Tablet 10 Mg PO DAILY Benztropine Mesylate 1 Mg Tablet 1 Mg PO BID Ventolin Hfa Inhaler (Albuterol Sulfate) 18 Gm Hfa.aer.ad 1 Puff IH PRN Q6HRS PRN Tramadol Hcl (Tramadol HCl) 50 Mg Tablet 50 Mg PO Q6HRS Diagnosis: Problems: (1) Anxiety disorder (2) Bipolar affective, mixed, sev w/ psych (3) Schizoaffective disorder, chronic condition with acute exacerbation JEREMIAS FOSTER MD Sep 15, 2017 21:46
[2017-09-16] MEDS: LEVOTHYROXINE 75 MCG TABLET PO SCH (05:21)
[2017-09-16] MEDS: traMADol 50 MG TABLET PO SCH ×3 (05:22→18:00)
[2017-09-16 05:55] VITALS: BP 97/59
[2017-09-16] MEDS: FAMOTIDINE 20 MG TABLET PO SCH ×2 (07:28→19:15)
[2017-09-16] MEDS: BENZTROPINE MESYLATE 1 MG TABLET PO SCH ×2 (07:29→19:15)
[2017-09-16] MEDS: DONEPEZIL HCL 5 MG TABLET. PO SCH (07:29)
[2017-09-16] MEDS: CETIRIZINE HCL 10 MG TABLET PO SCH (07:29)
[2017-09-16] MEDS: HALOPERIDOL 5 MG TABLET PO SCH ×2 (07:29→19:13)
[2017-09-16] MEDS: CHOLECALCIFEROL (VITAMIN D3) 1,000 UNIT TABLET PO SCH (07:29)
[2017-09-16] MEDS: SENNOSIDES 8.6 MG TABLET PO SCH ×2 (07:29→19:15)
[2017-09-16] MEDS: LITHIUM CARBONATE 150 MG CAPSULE. PO SCH ×2 (07:29→19:14)
[2017-09-16] MEDS: risperiDONE 1 MG TABLET. PO SCH ×2 (07:30→19:14)
[2017-09-16] MEDS: OMEGA-3 FATTY ACIDS/FISH OIL 1,000 MG CAPSULE. PO SCH ×2 (07:30→19:15)
[2017-09-16] MEDS: DIVALPROEX SODIUM 250 MG TABLET.DR. PO SCH ×2 (07:30→19:14)
[2017-09-16] MEDS: NICOTINE 14MG PATCH. TD SCH (07:32)
[2017-09-16] MEDS: LIDOCAINE (700MG/PATCH) PATCH. TD SCH (15:15)
[2017-09-16 15:58] VITALS: BP 96/63
--- NOTE | 2017-09-16 16:52 | HP ---
ADMIT DATE: 09/15/2017 REASON FOR ADMISSION TO THE [facility]: This is a 52-year-old female who has been residing for a little over a month at [facility] in [place], [place]. She has been yelling, threatening to kill other residents, hearing voices, and refusing her meds at times. PERTINENT MEDICATION CHANGES: She was started on Saphris 5 mg sublingual twice a day on 09/07/2017 for hearing voices and delusions. This has not been effective. Onset of symptoms on 09/07/2017. CURRENT MEDICAL PROBLEMS: Acute hepatitis C, COPD, GERD, schizoaffective disorder, bunion, hypertension, pyogenic granuloma, tinea unguium, hypothyroidism. ALLERGIES: Aspirin, codeine, and sulfa. MEDICATIONS: Reviewed and are available on the MAR. REVIEW OF SYSTEMS: The patient does state that she smokes and she resides at [facility]. The patient states she has pain in her right foot, otherwise negative and also denies that she has hepatitis C. OBJECTIVE: VITAL SIGNS: Blood pressure 96/63, temperature 98.8, pulse 81, respirations 17, pulse ox is 94% on room, was also 99% on room air, blood pressures were a little higher yesterday at 128/85. HEENT: Her TMs are intact without erythema. Pupils were equal, round, react to light. Extraocular muscles are intact. Nose is patent. Throat clear. NECK: Supple, without adenopathy. LUNGS: Clear to auscultation. CARDIOVASCULAR: Regular rhythm and rate. ABDOMEN: Soft, nontender. EXTREMITIES: Without edema. Right foot, she does have a palpatory tenderness on the top of her foot, bunion, pulses are intact. Full range of motion. DIAGNOSTIC DATA: X-ray negative for fracture or old fracture. Chest x-ray negative. Head CT negative. ASSESSMENT: Schizoaffective disorder, bipolar type with psychotic features; bipolar 1 disorder mixed with psychotic features; anxiety; chronic obstructive pulmonary disease; right foot pain; hypothyroidism with a suppressed TSH of 0.088. B12 is pending and vitamin D is pending. PLAN: Lidocaine patch for the top of her foot, decrease levothyroxine from 75 mcg to 50 mcg a day. Follow along with Dr. Richardson to treat her medical conditions. DANI MACIAS DO DR: GEOFFREY/maite JOB#: [id number] / [id number]
[2017-09-16] MEDS: POLYETHYLENE GLYCOL 3350 17 GM PACKET. PO SCH (17:59)
[2017-09-16] MEDS: GABAPENTIN 300 MG CAPSULE. PO SCH (19:13)
[2017-09-16] MEDS: cloZAPine 25 MG TABLET PO SCH (19:14)
[2017-09-16] MEDS: FENOFIBRATE NANOCRYSTALLIZED 48 MG TABLET PO SCH (19:16)
[2017-09-17] MEDS: traMADol 50 MG TABLET PO SCH ×5 (05:28→17:22)
[2017-09-17] MEDS: LEVOTHYROXINE 50 MCG TABLET PO SCH ×2 (05:59→07:00)
[2017-09-17 06:02] VITALS: BP 109/73
[2017-09-17 06:07] LABS: BASO % 1 % (0-3); EOS # 0.4 x10^3/uL (0.0-0.7); EOS % 6 % (0-3); HEMATOCRIT 40.6 % (36.0-47.0); HEMOGLOBIN 13.6 g/dL (12.0-15.5); LYMPH # 3.5 x10^3/uL (1.0-4.8); LYMPH % 49 % (24-48); MEAN CORPUSCULAR HEMOGLOBIN 31 pg (25-35); MEAN CORPUSCULAR HGB CONC 34 g/dL (31-37); MEAN CORPUSCULAR VOLUME 91 fL (79-100); MONO # 0.6 x10^3/uL (0.0-1.1); MONO % 9 % (0-9); NEUT # 2.5 x10^3uL (1.8-7.7); NEUT % 36 % (31-73); PLATELET COUNT 259 x10^3/uL (140-400); RED BLOOD COUNT 4.47 x10^6/uL (3.50-5.40); WHITE BLOOD COUNT 7.1 x10^3/uL (4.0-11.0)
[2017-09-17 06:16] LABS: ALBUMIN/GLOBULIN RATIO 0.9 (1.0-1.7); CREATININE 0.9 mg/dL (0.6-1.0); GFR 65.5; POTASSIUM 3.6 mmol/L (3.5-5.1); TOTAL BILIRUBIN 0.3 mg/dL (0.2-1.0); TOTAL PROTEIN 6.3 g/dL (6.4-8.2)
[2017-09-17] MEDS ORDERED: LEVOTHYROXINE 75 MCG TABLET PO SCH (07:00)
[2017-09-17] MEDS: LITHIUM CARBONATE 150 MG CAPSULE. PO SCH ×2 (09:17→19:56)
[2017-09-17] MEDS: LIDOCAINE (700MG/PATCH) PATCH. TD SCH (09:17)
[2017-09-17] MEDS: SENNOSIDES 8.6 MG TABLET PO SCH ×2 (09:17→19:56)
[2017-09-17] MEDS: CHOLECALCIFEROL (VITAMIN D3) 1,000 UNIT TABLET PO SCH ×2 (09:17→17:23)
[2017-09-17] MEDS: NICOTINE 14MG PATCH. TD SCH (09:17)
[2017-09-17] MEDS: BENZTROPINE MESYLATE 1 MG TABLET PO SCH ×2 (09:17→19:56)
[2017-09-17] MEDS: HALOPERIDOL 5 MG TABLET PO SCH ×2 (09:17→19:56)
[2017-09-17] MEDS: OMEGA-3 FATTY ACIDS/FISH OIL 1,000 MG CAPSULE. PO SCH ×3 (09:17→20:50)
[2017-09-17] MEDS: FAMOTIDINE 20 MG TABLET PO SCH ×2 (09:17→19:56)
[2017-09-17] MEDS: DIVALPROEX SODIUM 250 MG TABLET.DR. PO SCH ×2 (09:18→19:56)
[2017-09-17] MEDS: DONEPEZIL HCL 5 MG TABLET. PO SCH (09:18)
[2017-09-17] MEDS: CETIRIZINE HCL 10 MG TABLET PO SCH (09:18)
[2017-09-17] MEDS: risperiDONE 1 MG TABLET. PO SCH ×2 (09:18→19:56)
--- NOTE | 2017-09-17 11:43 | PN ---
DATE: 09/16/2017 SUBJECTIVE: The patient denies any new medical or neurological complaints. She is cooperative and calling numerous family members, she eats and drinks well. OBJECTIVE: GENERAL: Well-developed, well-nourished female, not in acute distress. VITAL SIGNS: Blood pressure 97/59, respiratory rate 16, pulse is 56 and regular, temperature 97.1, oxygen saturation 93% on room air. HEENT: Normocephalic, atraumatic, otherwise unremarkable. NECK: Supple. Negative for carotid bruit, lymphadenopathy or thyromegaly. LUNGS: Clear to A and P. CARDIOVASCULAR: Regular rate and rhythm, normal S1, S2. There is no S3, S4 or murmur. ABDOMEN: Soft. Bowel sounds positive. EXTREMITIES: Negative for cyanosis, clubbing or pitting edema. NEUROLOGIC: Mental status: The patient is alert and oriented to herself. She answers few questions, she is disoriented to the year. Speech is slow. Short term memory loss is present, judgment and abstraction thinking are intact. There is no language dysfunction. However, she is restless and delusional. Nonenhanced head CT scan performed on 09/14/2017 revealed no acute intracranial process. LABORATORY DATA: CBC is normal. Chemistry: Sodium 138, potassium 3.8, chloride 107, CO2 25, BUN 10, creatinine 0.7, glucose 79. Iron saturations low at 9. Liver enzymes are normal, triglyceride is high at 203 with low HDL at 38. TSH is low with normal T4 and T3. IMPRESSION: Schizoaffective disorders, bipolar disorders, bipolar disorder with psychotic features, anxiety, multiple medical problems includes hepatitis C, gastroesophageal reflux disease, chronic obstructive pulmonary disease, hypertension, hypothyroidism, dementia, and iron deficiency.0 RECOMMENDATIONS: Continue with current daily medications. The patient was started on Clozaril for psychosis. She is scheduled to have white blood cells and complete metabolic panel tomorrow, Sunday. M Bakari PETER MD DR: BREANA/maite JOB#: [id number] / [id number]
[2017-09-17 16:07] VITALS: BP 132/83
[2017-09-17] MEDS: ACETAMINOPHEN 325 MG TABLET PO PRN (16:20)
[2017-09-17] MEDS: POLYETHYLENE GLYCOL 3350 17 GM PACKET. PO SCH (17:22)
[2017-09-17] MEDS: CHOLECALCIFEROL (VITAMIN D3) 50,000 UNIT CAPSULE PO SCH (17:24)
[2017-09-17] MEDS: cloZAPine 25 MG TABLET PO SCH (19:56)
[2017-09-17] MEDS: GABAPENTIN 300 MG CAPSULE. PO SCH (19:56)
[2017-09-17] MEDS: FENOFIBRATE NANOCRYSTALLIZED 48 MG TABLET PO SCH (19:57)
[2017-09-18] MEDS: traMADol 50 MG TABLET PO SCH ×5 (00:18→23:03)
--- NOTE | 2017-09-18 01:55 | PN ---
DATE: 09/17/2017 SUBJECTIVE: The patient was seen today, met with the staff, chart reviewed and also covering for Dr. Richardson. Staff reports that the patient has been demanding wanting to be discharged against medical advice. The patient had multiple hospitalizations including spending 13 months at [facility]. The patient is somewhat emotionally labile, easy to redirect, currently denies of any overt psychotic symptoms. She admits to getting angry with her roommate, and when she gets angry, she starts threatening. The patient also has history of auditory hallucinations, currently denies. OBSERVATION: VITAL SIGNS: Temperature 98.3, blood pressure 109/73, pulse 68, respirations 16, O2 sat 95%. GENERAL: The patient slept about 6 hours last night. CURRENT MEDICATIONS: The patient's current medications include Clozaril 25 mg at night, which was started recently; gabapentin 600 mg at night, Depakote 1000 mg at night, Risperdal 3 mg b.i.d., lithium carbonate 300 mg b.i.d. p.o. and also on Haldol 10 mg b.i.d. p.o., Aricept 5 mg daily. She is also on Depakote 250 mg in the morning. She is also on Cogentin 1 mg b.i.d. The patient currently is not having any side effects to the medications. The patient has a longstanding chronic psychiatric problems, continues to have behavioral problems. ASSESSMENT: 1. Schizoaffective disorder, bipolar type, chronic and acute exacerbation. 2. History of bipolar affective disorder, mixed, with psychotic features. 3. Anxiety disorder, unspecified. PLAN: The patient's lab reviewed. The patient's hemoglobin was 4.5. The patient's triglycerides was 203, HDL 38. The patient's TSH was 0.88. The patient's glucose was 107, alkaline phosphatase 45. The patient's Depakote level was 104. The patient's lithium level was 0.7. The patient will have repeat Depakote levels. Plan is to continue with the treatment. The patient is encouraged to attend all the activities. We will consider making some changes with her antipsychotic drugs, has been taking Risperdal, Haldol, and recently started on Clozaril. VELLORE KIRUBAKARAN, MD DR: GURU/maite JOB#: [id number] / [id number]
[2017-09-18] MEDS: LEVOTHYROXINE 50 MCG TABLET PO SCH (05:56)
[2017-09-18 06:29] VITALS: BP 130/84
[2017-09-18] MEDS: BENZTROPINE MESYLATE 1 MG TABLET PO SCH ×2 (08:16→19:35)
[2017-09-18] MEDS: DONEPEZIL HCL 5 MG TABLET. PO SCH (08:17)
[2017-09-18] MEDS: DIVALPROEX SODIUM 250 MG TABLET.DR. PO SCH ×2 (08:17→19:31)
[2017-09-18] MEDS: FAMOTIDINE 20 MG TABLET PO SCH ×2 (08:17→19:35)
[2017-09-18] MEDS: CETIRIZINE HCL 10 MG TABLET PO SCH (08:17)
[2017-09-18] MEDS: risperiDONE 1 MG TABLET. PO SCH ×2 (08:17→19:35)
[2017-09-18] MEDS: HALOPERIDOL 5 MG TABLET PO SCH ×2 (08:18→19:35)
[2017-09-18] MEDS: LITHIUM CARBONATE 150 MG CAPSULE. PO SCH ×2 (08:18→19:34)
[2017-09-18] MEDS: OMEGA-3 FATTY ACIDS/FISH OIL 1,000 MG CAPSULE. PO SCH ×3 (08:18→19:35)
[2017-09-18] MEDS: SENNOSIDES 8.6 MG TABLET PO SCH ×2 (08:18→19:35)
[2017-09-18] MEDS: NICOTINE 14MG PATCH. TD SCH (08:19)
[2017-09-18] MEDS: LIDOCAINE (700MG/PATCH) PATCH. TD SCH (08:19)
[2017-09-18 15:24] VITALS: BP 102/52
[2017-09-18] MEDS: POLYETHYLENE GLYCOL 3350 17 GM PACKET. PO SCH (17:34)
[2017-09-18] MEDS: MAG HYDROX/AL HYDROX/SIMETH 30 ML ORAL.SUSP PO PRN (17:56)
[2017-09-18] MEDS: GABAPENTIN 300 MG CAPSULE. PO SCH (19:34)
[2017-09-18] MEDS: cloZAPine 25 MG TABLET PO SCH (19:35)
[2017-09-18] MEDS: FENOFIBRATE NANOCRYSTALLIZED 48 MG TABLET PO SCH (21:00)
[2017-09-19 05:50] VITALS: BP 107/73
[2017-09-19] MEDS: risperiDONE 1 MG TABLET. PO SCH ×2 (09:00→20:28)
[2017-09-19] MEDS: FAMOTIDINE 20 MG TABLET PO SCH ×2 (09:00→20:29)
[2017-09-19] MEDS: OMEGA-3 FATTY ACIDS/FISH OIL 1,000 MG CAPSULE. PO SCH ×2 (09:00→20:29)
[2017-09-19] MEDS: MAGNESIUM HYDROXIDE 2,400 MG/30 ML ORAL.SUSP. PO PRN (09:00)
[2017-09-19] MEDS: BENZTROPINE MESYLATE 1 MG TABLET PO SCH ×2 (09:00→20:29)
[2017-09-19] MEDS: HALOPERIDOL 5 MG TABLET PO SCH ×2 (09:00→20:29)
[2017-09-19] MEDS: LEVOTHYROXINE 50 MCG TABLET PO SCH (09:01)
[2017-09-19] MEDS: DONEPEZIL HCL 5 MG TABLET. PO SCH (09:01)
[2017-09-19] MEDS: DIVALPROEX SODIUM 250 MG TABLET.DR. PO SCH ×2 (09:01→20:28)
[2017-09-19] MEDS: CETIRIZINE HCL 10 MG TABLET PO SCH (09:01)
[2017-09-19] MEDS: LITHIUM CARBONATE 150 MG CAPSULE. PO SCH ×2 (09:01→20:29)
[2017-09-19] MEDS: CHOLECALCIFEROL (VITAMIN D3) 1,000 UNIT TABLET PO SCH (09:01)
[2017-09-19] MEDS: SENNOSIDES 8.6 MG TABLET PO SCH ×2 (09:02→20:29)
[2017-09-19] MEDS: LIDOCAINE (700MG/PATCH) PATCH. TD SCH (09:02)
[2017-09-19] MEDS: NICOTINE 14MG PATCH. TD SCH (09:02)
[2017-09-19] MEDS: traMADol 50 MG TABLET PO SCH ×4 (09:04→22:53)
[2017-09-19 16:02] VITALS: BP 120/81
[2017-09-19] MEDS: POLYETHYLENE GLYCOL 3350 17 GM PACKET. PO SCH (16:28)
[2017-09-19] MEDS: GABAPENTIN 300 MG CAPSULE. PO SCH (20:28)
[2017-09-19] MEDS: cloZAPine 25 MG TABLET PO SCH (20:29)
[2017-09-19] MEDS: FENOFIBRATE NANOCRYSTALLIZED 48 MG TABLET PO SCH (20:32)
--- NOTE | 2017-09-20 01:56 | PN ---
DATE: 09/19/2017 SUBJECTIVE: The patient was seen today, met with the staff, chart reviewed. The patient continues to show some improvement, has not presented with any major behavior problems. The patient does socialize with other residents without getting angry. Staff reports that the patient is waiting for level 2 screening for placement. OBSERVATION: VITAL SIGNS: Temperature 98.8, blood pressure 107/73, pulse 71, respirations 20, O2 sat 95%. The patient slept about 3-1/2 hours last night. CURRENT MEDICATIONS: Include Clozaril 25 mg at night, gabapentin 600 mg at night, Depakote 1000 mg at night, Risperdal 3 mg twice a day, lithium carbonate 300 mg b.i.d. She is also on Haldol 10 mg b.i.d. She is also on Depakote 250 mg in the morning. The patient is not showing any side effects to the medications. The patient is not presenting with any other physical complaints. ASSESSMENT: Schizoaffective disorder, bipolar type, chronic, with acute exacerbation. PLAN: To continue with the medications as above. We will consider decreasing Haldol if her behavior improves. The patient is waiting for placement. The patient's Depakote level will be repeated. SHAW MARTINEZ MD DR: GURU/maite JOB#: [id number] / [id number]
[2017-09-20 05:48] VITALS: BP 124/78
[2017-09-20] MEDS: traMADol 50 MG TABLET PO SCH ×4 (06:14→23:58)
[2017-09-20] MEDS: LEVOTHYROXINE 50 MCG TABLET PO SCH (06:14)
--- NOTE | 2017-09-20 07:53 | PN ---
DATE: 09/18/2017 SUBJECTIVE: The patient was seen today, met with the staff, chart reviewed. The patient is much calmer today. The patient is staying in bed. The patient has not made any threats towards other residents. The patient denied of having any auditory hallucinations at this time. OBSERVATION: VITAL SIGNS: Temperature ____, blood pressure 130/84, pulse 76, respiration 18, O2 saturation 97.1. The patient slept about 4 hours last night. The patient denies any side effects to the medications. The patient was tolerating lithium fairly well, is on therapeutic range. CURRENT MEDICATIONS: Include Depakote 250 mg in the morning and 1000 mg at night, Aricept 5 mg daily, Haldol 10 mg b.i.d. lithium 300 mg b.i.d., Zyprexa Zydis 2.5 mg p.r.n. The patient is also on Clozaril 25 mg at night and Risperdal 3 mg b.i.d. ASSESSMENT: 1. Schizoaffective disorder, bipolar type. 2. History of bipolar affective disorder, mixed, with psychotic features. 3. Anxiety disorder, unspecified. PLAN: To continue with the treatment. We will check the Depakote level and lithium levels. SHAW MARTINEZ MD DR: GURU/maite JOB#: [id number] / [id number]
[2017-09-20] MEDS: FAMOTIDINE 20 MG TABLET PO SCH ×2 (08:17→19:40)
[2017-09-20] MEDS: OMEGA-3 FATTY ACIDS/FISH OIL 1,000 MG CAPSULE. PO SCH ×2 (08:17→08:29)
[2017-09-20] MEDS: BENZTROPINE MESYLATE 1 MG TABLET PO SCH ×2 (08:17→19:39)
[2017-09-20] MEDS: CETIRIZINE HCL 10 MG TABLET PO SCH (08:17)
[2017-09-20] MEDS: HALOPERIDOL 5 MG TABLET PO SCH ×2 (08:17→19:40)
[2017-09-20] MEDS: DONEPEZIL HCL 5 MG TABLET. PO SCH (08:17)
[2017-09-20] MEDS: CHOLECALCIFEROL (VITAMIN D3) 1,000 UNIT TABLET PO SCH (08:17)
[2017-09-20] MEDS: LITHIUM CARBONATE 150 MG CAPSULE. PO SCH ×2 (08:18→19:40)
[2017-09-20] MEDS: risperiDONE 1 MG TABLET. PO SCH ×2 (08:18→19:40)
[2017-09-20] MEDS: SENNOSIDES 8.6 MG TABLET PO SCH ×2 (08:18→19:40)
[2017-09-20] MEDS: DIVALPROEX SODIUM 250 MG TABLET.DR. PO SCH ×2 (08:18→19:41)
[2017-09-20] MEDS: LIDOCAINE (700MG/PATCH) PATCH. TD SCH (08:19)
[2017-09-20] MEDS: NICOTINE 14MG PATCH. TD SCH (08:19)
[2017-09-20 10:03] LABS: VAL ACID 76 mcg/mL (50-100)
[2017-09-20] MEDS: ACETAMINOPHEN 325 MG TABLET PO PRN (14:33)
[2017-09-20 15:21] VITALS: BP 127/82
[2017-09-20] MEDS: POLYETHYLENE GLYCOL 3350 17 GM PACKET. PO SCH (18:00)
[2017-09-20] MEDS: GABAPENTIN 300 MG CAPSULE. PO SCH (19:40)
[2017-09-20] MEDS: cloZAPine 25 MG TABLET PO SCH (19:40)
[2017-09-20] MEDS: FENOFIBRATE NANOCRYSTALLIZED 48 MG TABLET PO SCH (19:41)
[2017-09-21 05:28] VITALS: BP 108/69
[2017-09-21] MEDS: LEVOTHYROXINE 50 MCG TABLET PO SCH (06:03)
[2017-09-21] MEDS: traMADol 50 MG TABLET PO SCH ×3 (06:03→18:03)
[2017-09-21] MEDS: risperiDONE 1 MG TABLET. PO SCH ×2 (08:25→19:19)
[2017-09-21] MEDS: BENZTROPINE MESYLATE 1 MG TABLET PO SCH ×2 (08:25→19:19)
[2017-09-21] MEDS: CHOLECALCIFEROL (VITAMIN D3) 1,000 UNIT TABLET PO SCH (08:25)
[2017-09-21] MEDS: SENNOSIDES 8.6 MG TABLET PO SCH ×2 (08:25→19:19)
[2017-09-21] MEDS: DIVALPROEX SODIUM 250 MG TABLET.DR. PO SCH ×2 (08:26→19:18)
[2017-09-21] MEDS: CETIRIZINE HCL 10 MG TABLET PO SCH (08:26)
[2017-09-21] MEDS: FAMOTIDINE 20 MG TABLET PO SCH ×2 (08:26→19:19)
[2017-09-21] MEDS: LITHIUM CARBONATE 150 MG CAPSULE. PO SCH ×2 (08:26→19:19)
[2017-09-21] MEDS: HALOPERIDOL 5 MG TABLET PO SCH ×2 (08:26→19:19)
[2017-09-21] MEDS: DONEPEZIL HCL 5 MG TABLET. PO SCH (08:26)
[2017-09-21] MEDS: LIDOCAINE (700MG/PATCH) PATCH. TD SCH (08:27)
[2017-09-21] MEDS: NICOTINE 14MG PATCH. TD SCH (08:27)
[2017-09-21 16:17] VITALS: BP 128/88
--- NOTE | 2017-09-21 16:19 | PN ---
DATE: 09/20/2017 SUBJECTIVE: The patient was seen today, met with the staff, chart reviewed. The patient continues to have problems, demanding, trying to manipulate the staff and other clients, constantly instigating some problems. Apparently, she had a lot of problems last night. She is also hoarding things. OBSERVATION: The patient refused vitals. The patient slept only about 1 hour last night. The patient is compliant with her medications. The patient apparently taking fairly high doses of medications and combination of antipsychotics on lithium and Depakote, but still having problems. The patient is not having any side effects of the medications. CURRENT MEDICATIONS: Currently on Depakote 250 mg in the morning and 1000 mg at night, Aricept 5 mg daily, Haldol 10 mg b.i.d., lithium 300 mg b.i.d., Zyprexa Zydis 2.5 mg p.r.n. The patient is also on Clozaril 25 mg at night and Risperdal 3 mg b.i.d. ASSESSMENT: 1. Schizoaffective disorder, bipolar type. 2. History of bipolar affective disorder, mixed, with psychotic features. 3. Anxiety disorder, unspecified. PLAN: Continue with the medication, we will consider making some changes, it is not clear whether the patient is a nonresponder to most of the antipsychotic drugs. SHAW MARTINEZ MD DR: Edward JOB#: [id number] / [id number]
[2017-09-21] MEDS: POLYETHYLENE GLYCOL 3350 17 GM PACKET. PO SCH (18:04)
[2017-09-21] MEDS: GABAPENTIN 300 MG CAPSULE. PO SCH (19:18)
[2017-09-21] MEDS: FENOFIBRATE NANOCRYSTALLIZED 48 MG TABLET PO SCH (19:19)
[2017-09-21] MEDS: cloZAPine 25 MG TABLET PO SCH (19:19)
[2017-09-21] MEDS: ACETAMINOPHEN 325 MG TABLET PO PRN (21:28)
[2017-09-22] MEDS: traMADol 50 MG TABLET PO SCH ×4 (00:16→17:39)
[2017-09-22 05:12] LABS: BASO # 0.1 x10^3/uL (0.0-0.2); BASO % 1 % (0-3); EOS # 0.5 x10^3/uL (0.0-0.7); EOS % 6 % (0-3); HEMATOCRIT 40.7 % (36.0-47.0); HEMOGLOBIN 13.8 g/dL (12.0-15.5); LYMPH # 3.6 x10^3/uL (1.0-4.8); LYMPH % 48 % (24-48); MEAN CORPUSCULAR HEMOGLOBIN 31 pg (25-35); MEAN CORPUSCULAR HGB CONC 34 g/dL (31-37); MEAN CORPUSCULAR VOLUME 91 fL (79-100); MONO # 0.6 x10^3/uL (0.0-1.1); MONO % 8 % (0-9); NEUT # 2.9 x10^3uL (1.8-7.7); NEUT % 38 % (31-73); PLATELET COUNT 226 x10^3/uL (140-400); RED CELL DISTRIBUTION WIDTH 13.9 % (11.5-14.5); WHITE BLOOD COUNT 7.6 x10^3/uL (4.0-11.0)
[2017-09-22 05:22] LABS: ALBUMIN 3.3 g/dL (3.4-5.0); ALBUMIN/GLOBULIN RATIO 0.9 (1.0-1.7); ALK PHOS 50 U/L (46-116); ALT (SGPT) 20 U/L (14-59); ANION GAP 10 (6-14); AST (SGOT) 13 U/L (15-37); BLOOD UREA NITROGEN 8 mg/dL (7-20); BUN/CREATININE RATIO 9 (6-20); CALCIUM 9.2 mg/dL (8.5-10.1); CARBON DIOXIDE 23 mmol/L (21-32); CHLORIDE 106 mmol/L (98-107); CREATININE 0.9 mg/dL (0.6-1.0); GFR 65.5; GLUCOSE 99 mg/dL (70-99); POTASSIUM 3.6 mmol/L (3.5-5.1); SODIUM 139 mmol/L (136-145); TOTAL BILIRUBIN 0.2 mg/dL (0.2-1.0); TOTAL PROTEIN 6.8 g/dL (6.4-8.2)
[2017-09-22] MEDS: LEVOTHYROXINE 50 MCG TABLET PO SCH (05:38)
[2017-09-22 05:44] LABS: VAL ACID 65 mcg/mL (50-100)
[2017-09-22 05:50] VITALS: BP 109/70
[2017-09-22] MEDS: MAG HYDROX/AL HYDROX/SIMETH 30 ML ORAL.SUSP PO PRN (07:32)
[2017-09-22] MEDS: NICOTINE 14MG PATCH. TD SCH (07:32)
[2017-09-22] MEDS: DIVALPROEX SODIUM 250 MG TABLET.DR. PO SCH ×2 (07:33→19:28)
[2017-09-22] MEDS: CHOLECALCIFEROL (VITAMIN D3) 1,000 UNIT TABLET PO SCH (07:33)
[2017-09-22] MEDS: HALOPERIDOL 5 MG TABLET PO SCH ×2 (07:33→19:28)
[2017-09-22] MEDS: LITHIUM CARBONATE 150 MG CAPSULE. PO SCH ×2 (07:33→19:28)
[2017-09-22] MEDS: FAMOTIDINE 20 MG TABLET PO SCH ×2 (07:33→19:28)
[2017-09-22] MEDS: CETIRIZINE HCL 10 MG TABLET PO SCH (07:34)
[2017-09-22] MEDS: risperiDONE 1 MG TABLET. PO SCH ×2 (07:34→19:30)
[2017-09-22] MEDS: SENNOSIDES 8.6 MG TABLET PO SCH ×2 (07:34→19:28)
[2017-09-22] MEDS: DONEPEZIL HCL 5 MG TABLET. PO SCH (07:34)
[2017-09-22] MEDS: BENZTROPINE MESYLATE 1 MG TABLET PO SCH ×2 (07:35→19:28)
[2017-09-22] MEDS: LIDOCAINE (700MG/PATCH) PATCH. TD SCH (07:36)
[2017-09-22 11:57] LABS: LI 0.6 mmol/L (0.6-1.2)
[2017-09-22] MEDS: POLYETHYLENE GLYCOL 3350 17 GM PACKET. PO SCH (12:30)
[2017-09-22 15:40] VITALS: BP 103/73
[2017-09-22] MEDS: GABAPENTIN 300 MG CAPSULE. PO SCH (19:27)
[2017-09-22] MEDS: cloZAPine 25 MG TABLET PO SCH (19:28)
[2017-09-22] MEDS: FENOFIBRATE NANOCRYSTALLIZED 48 MG TABLET PO SCH (19:30)
[2017-09-23] MEDS: traMADol 50 MG TABLET PO SCH ×4 (00:03→18:23)
[2017-09-23 01:08] LABS: BACTERIA,URINE FEW /HPF (0-FEW); BILIRUBIN,URINE NEG (NEG); CLARITY,URINE CLEAR; COLOR,URINE STRAW; GLUCOSE,URINE NEG (NEG); NITRITE,URINE NEG (NEG); RBC,URINE 0 /HPF (0-2); UROBILINOGEN,URINE 0.2 mg/dL (0.2 mg/dL); WBC,URINE 0 /HPF (0-4)
[2017-09-23 01:09] LABS: SQUAMOUS EPITHELIAL CELL,UR MOD /LPF
[2017-09-23 05:53] VITALS: BP 102/61
[2017-09-23] MEDS: LEVOTHYROXINE 50 MCG TABLET PO SCH (06:17)
[2017-09-23] MEDS: LIDOCAINE (700MG/PATCH) PATCH. TD SCH ×2 (07:44→08:28)
[2017-09-23] MEDS: DIVALPROEX SODIUM 250 MG TABLET.DR. PO SCH ×2 (07:45→19:26)
[2017-09-23] MEDS: SENNOSIDES 8.6 MG TABLET PO SCH ×2 (07:45→19:27)
[2017-09-23] MEDS: BENZTROPINE MESYLATE 1 MG TABLET PO SCH ×2 (07:45→19:26)
[2017-09-23] MEDS: LITHIUM CARBONATE 150 MG CAPSULE. PO SCH ×2 (07:45→19:27)
[2017-09-23] MEDS: risperiDONE 1 MG TABLET. PO SCH ×2 (07:45→19:26)
[2017-09-23] MEDS: NICOTINE 14MG PATCH. TD SCH (07:45)
[2017-09-23] MEDS: CETIRIZINE HCL 10 MG TABLET PO SCH (07:46)
[2017-09-23] MEDS: CHOLECALCIFEROL (VITAMIN D3) 1,000 UNIT TABLET PO SCH (07:46)
[2017-09-23] MEDS: FAMOTIDINE 20 MG TABLET PO SCH ×2 (07:46→19:27)
[2017-09-23] MEDS: DONEPEZIL HCL 5 MG TABLET. PO SCH (07:46)
[2017-09-23] MEDS: HALOPERIDOL 5 MG TABLET PO SCH ×2 (07:46→19:26)
[2017-09-23 16:35] VITALS: BP 144/78
[2017-09-23] MEDS: POLYETHYLENE GLYCOL 3350 17 GM PACKET. PO SCH (18:23)
[2017-09-23] MEDS: GABAPENTIN 300 MG CAPSULE. PO SCH (19:26)
[2017-09-23] MEDS: cloZAPine 25 MG TABLET PO SCH (19:26)
[2017-09-23] MEDS: FENOFIBRATE NANOCRYSTALLIZED 48 MG TABLET PO SCH (19:27)
[2017-09-24] MEDS: traMADol 50 MG TABLET PO SCH ×5 (00:09→22:38)
[2017-09-24 06:09] VITALS: BP 115/77
[2017-09-24] MEDS: LEVOTHYROXINE 50 MCG TABLET PO SCH (06:12)
[2017-09-24 08:30] LABS: ALBUMIN 3.3 g/dL (3.4-5.0); CALCIUM 9.6 mg/dL (8.5-10.1); CREATININE 0.9 mg/dL (0.6-1.0); GFR 65.5; POTASSIUM 3.6 mmol/L (3.5-5.1); TOTAL BILIRUBIN 0.2 mg/dL (0.2-1.0); TOTAL PROTEIN 6.6 g/dL (6.4-8.2)
[2017-09-24 08:31] LABS: BASO % 1 % (0-3); EOS # 0.5 x10^3/uL (0.0-0.7); EOS % 7 % (0-3); HEMATOCRIT 41.1 % (36.0-47.0); LYMPH # 3.2 x10^3/uL (1.0-4.8); LYMPH % 45 % (24-48); MEAN CORPUSCULAR HEMOGLOBIN 31 pg (25-35); MEAN CORPUSCULAR HGB CONC 34 g/dL (31-37); MEAN CORPUSCULAR VOLUME 91 fL (79-100); MONO # 0.6 x10^3/uL (0.0-1.1); MONO % 9 % (0-9); NEUT # 2.7 x10^3uL (1.8-7.7); NEUT % 38 % (31-73); PLATELET COUNT 216 x10^3/uL (140-400); RED BLOOD COUNT 4.53 x10^6/uL (3.50-5.40); RED CELL DISTRIBUTION WIDTH 14.5 % (11.5-14.5)
[2017-09-24] MEDS: risperiDONE 1 MG TABLET. PO SCH ×2 (09:00→19:48)
[2017-09-24] MEDS: CHOLECALCIFEROL (VITAMIN D3) 1,000 UNIT TABLET PO SCH (09:00)
[2017-09-24] MEDS: HALOPERIDOL 5 MG TABLET PO SCH ×2 (09:00→19:48)
[2017-09-24] MEDS: FAMOTIDINE 20 MG TABLET PO SCH ×2 (09:01→19:47)
[2017-09-24] MEDS: LITHIUM CARBONATE 150 MG CAPSULE. PO SCH ×2 (09:01→19:48)
[2017-09-24] MEDS: DIVALPROEX SODIUM 250 MG TABLET.DR. PO SCH ×2 (09:01→19:47)
[2017-09-24] MEDS: CETIRIZINE HCL 10 MG TABLET PO SCH (09:01)
[2017-09-24] MEDS: DONEPEZIL HCL 5 MG TABLET. PO SCH (09:01)
[2017-09-24] MEDS: CHOLECALCIFEROL (VITAMIN D3) 50,000 UNIT CAPSULE PO SCH (09:01)
[2017-09-24] MEDS: SENNOSIDES 8.6 MG TABLET PO SCH ×2 (09:01→19:47)
[2017-09-24] MEDS: BENZTROPINE MESYLATE 1 MG TABLET PO SCH ×2 (09:01→19:47)
[2017-09-24] MEDS: LIDOCAINE (700MG/PATCH) PATCH. TD SCH (09:02)
[2017-09-24] MEDS: NICOTINE 14MG PATCH. TD SCH (09:02)
--- NOTE | 2017-09-24 11:53 | PN ---
DATE: 09/21/2017 SUBJECTIVE: The patient was seen today, met with the staff, chart reviewed. The patient continues to have episodes of irritability, angry outbursts, and demanding behaviors. The patient does not sleep at night, but sleeps during the daytime. The patient continued to exhibit poor impulse control and low frustration tolerance. OBSERVATION: The patient's vital signs are stable. The patient's appetite normal. Sleep decreased. MEDICATIONS: Reviewed. The patient is currently not showing any side effects to the medications. The patient apparently has several medications that still not responding. CURRENT MEDICATIONS: Include Depakote 250 mg in the morning and 1000 mg at night, Aricept 5 mg daily, Haldol 10 mg b.i.d., lithium carbonate 300 mg b.i.d., Risperdal 3 mg b.i.d. The patient is also on Clozaril 25 mg started recently. ASSESSMENT: 1. Schizoaffective disorder, bipolar type. 2. History of bipolar affective disorder, mixed, with psychotic features. 3. Anxiety disorder, unspecified. PLAN: To continue with the treatment. We will check the Depakote level periodically. SHAW MARTINEZ MD DR: GURU/maite JOB#: [id number] / [id number]
--- NOTE | 2017-09-24 12:37 | PN ---
DATE: 09/22/2017 SUBJECTIVE: The patient was seen today, met with the staff, chart reviewed. The patient apparently has been sleeping during the daytime and having problems at night, at times refusing the medications, threatening towards others residents. OBSERVATION: VITAL SIGNS: Temperature 97.2, blood pressure 109/70, pulse 70, respirations 18, O2 sat 96%, slept about 3-1/2 hours last night. The patient is not presenting with any physical complaints. CURRENT MEDICATIONS: The patient's current medications include clozapine 25 mg at night, gabapentin 600 mg at night, Depakote 1000 mg at night, Risperdal 3 mg b.i.d., lithium carbonate 300 mg b.i.d., Haldol 10 mg b.i.d., Aricept 5 mg daily, Depakote 250 mg daily, Cogentin 1 mg b.i.d. The patient's lab reviewed. No major changes from the previous results. The patient's concern that the patient may be drinking too much water and questionable water intoxication, but the patient's sodium level was 136, repeat 139. ASSESSMENT: 1. Schizoaffective disorder, bipolar type. 2. History of bipolar affective disorder, mixed with psychotic features. 3. Anxiety disorder, unspecified. PLAN: To continue with the treatment. Continue to monitor water intake. SHAW MARTINEZ MD DR: GURU/maite JOB#: [id number] / [id number]
--- NOTE | 2017-09-24 12:41 | PN ---
DATE: 09/23/2017 SUBJECTIVE: The patient was seen today, met with the staff, chart reviewed. The patient's behavior remains the same. The patient still awake at night, sleeping mostly during the daytime. Continues to have some behavioral problems, demanding, aggressive towards the staff and also she has been hoarding things. She has some difficulty following the rules. OBSERVATION: VITAL SIGNS: Temperature 97.9, blood pressure 102/61, pulse 57, respirations 18, O2 sat 97%. Slept about 4 hours last night. CURRENT MEDICATIONS: Includes Clozaril 25 mg at night, gabapentin 600 mg at night, Depakote 1000 mg at night, Risperdal 3 mg b.i.d., Haldol 10 mg b.i.d., Aricept 5 mg daily, Depakote 250 mg daily, benztropine 1 mg b.i.d. p.o. The patient is having difficulty following directions, still delusional and paranoid. ASSESSMENT: 1. Schizoaffective disorder, bipolar type. 2. Anxiety disorder, unspecified. PLAN: To continue with the treatment. SHAW MARTINEZ MD DR: GURU/maite JOB#: [id number] / [id number]
[2017-09-24 15:56] VITALS: BP 110/77
[2017-09-24] MEDS: POLYETHYLENE GLYCOL 3350 17 GM PACKET. PO SCH (18:44)
[2017-09-24] MEDS: GABAPENTIN 300 MG CAPSULE. PO SCH (19:47)
[2017-09-24] MEDS: cloZAPine 25 MG TABLET PO SCH (19:47)
[2017-09-24] MEDS: traZODone 100 MG TABLET. PO SCH (19:48)
[2017-09-24] MEDS: FENOFIBRATE NANOCRYSTALLIZED 48 MG TABLET PO SCH (19:49)
--- NOTE | 2017-09-24 20:32 | PDOC ---
Exam Abe Demential Exam: Abe Note: Please also refer to the separate dictated note~for this date of service dictated separately.~Patient seen individually. Discussed the patient with Nursing staff reviewed the chart.~Reviewed interim history and current functioning. Reviewed vital signs,~Labs/ Radiology~and current medications noted below. Continue current treatment with the changes noted in the dictated addendum note Assessment: Vital Signs: Vital Signs Date Time Temp Pulse Resp B/P (MAP) Pulse Ox O2 Delivery O2 Flow Rate FiO2 09/24/17 19:46 Room Air 09/24/17 18:45 18 96 09/24/17 15:56 97.5 75 110/77 (88) I&O Intake and Output 09/25/17 07:00 Intake Total 1320 ml Balance 1320 ml Intake Oral 1320 ml Labs: Laboratory Tests Test 09/24/17 07:28 White Blood Count 7.0 x10^3/uL (4.0-11.0) Red Blood Count 4.53 x10^6/uL (3.50-5.40) Hemoglobin 14.0 g/dL (12.0-15.5) Hematocrit 41.1 % (36.0-47.0) Mean Corpuscular Volume 91 fL (79-100) Mean Corpuscular Hemoglobin 31 pg (25-35) Mean Corpuscular Hemoglobin Concent 34 g/dL (31-37) Red Cell Distribution Width 14.5 % (11.5-14.5) Platelet Count 216 x10^3/uL (140-400) Neutrophils (%) (Auto) 38 % (31-73) Lymphocytes (%) (Auto) 45 % (24-48) Monocytes (%) (Auto) 9 % (0-9) Eosinophils (%) (Auto) 7 % (0-3) H Basophils (%) (Auto) 1 % (0-3) Neutrophils # (Auto) 2.7 x10^3uL (1.8-7.7) Lymphocytes # (Auto) 3.2 x10^3/uL (1.0-4.8) Monocytes # (Auto) 0.6 x10^3/uL (0.0-1.1) Eosinophils # (Auto) 0.5 x10^3/uL (0.0-0.7) Basophils # (Auto) 0.0 x10^3/uL (0.0-0.2) Sodium Level 141 mmol/L (136-145) Potassium Level 3.6 mmol/L (3.5-5.1) Chloride Level 107 mmol/L (98-107) Carbon Dioxide Level 24 mmol/L (21-32) Anion Gap 10 (6-14) Blood Urea Nitrogen 9 mg/dL (7-20) Creatinine 0.9 mg/dL (0.6-1.0) Estimated GFR (Cockcroft-Gault) 65.5 BUN/Creatinine Ratio 10 (6-20) Glucose Level 101 mg/dL (70-99) H Calcium Level 9.6 mg/dL (8.5-10.1) Total Bilirubin 0.2 mg/dL (0.2-1.0) Aspartate Amino Transferase (AST) 14 U/L (15-37) L Alanine Aminotransferase (ALT) 20 U/L (14-59) Alkaline Phosphatase 45 U/L (46-116) L Total Protein 6.6 g/dL (6.4-8.2) Albumin 3.3 g/dL (3.4-5.0) L Albumin/Globulin Ratio 1.0 (1.0-1.7) Current Medications: Meds: Current Medications Nicotine (Nicoderm Cq 14mg) 1 patch DAILY TD Last administered on 09/24/17 09 :02; Start 09/16/17 at 09:00 Benztropine Mesylate (Cogentin) 1 mg BID PO Last administered on 09/24/17 19: 47; Start 09/15/17 at 09:00 Divalproex Sodium (Depakote) 250 mg DAILY PO Last administered on 09/24/17 09 :01; Start 09/15/17 at 09:00 Donepezil HCl (Aricept) 5 mg DAILY PO Last administered on 09/24/17 09:01; Start 09/15/17 at 09:00 Non-Formulary Medication 5 mg BID SL ; Start 09/15/17 at 09:00; Stop 09/15/17 at 09:00; Status DC Divalproex Sodium (Depakote) 1,000 mg QHS PO Last administered on 09/24/17 19 :47; Start 09/15/17 at 21:00 Haloperidol (Haldol) 10 mg BID PO Last administered on 09/24/17 19:48; Start 09/15/17 at 09:00 [place] Carbonate 300 mg BID PO Last administered on 09/24/17 19:48; Start 09/15/17 at 09:00 Risperidone (RisperDAL) 3 mg BID PO Last administered on 09/24/17 09:00; Start 09/15/17 at 09:00; Stop 09/24/17 at 19:25; Status DC Nicotine (Nicoderm Cq 14mg) 1 patch 1X ONCE TD Last administered on 04:38; Start 09/15/17 at 04:30; Stop 09/15/17 at 04:35; Status DC Olanzapine (ZyPREXA ZYDIS) 2.5 mg PRN Q2HR PRN PO PSYCHOSIS; Start 09/15/17 at 05:15 Acetaminophen (Tylenol) 650 mg PRN Q4HRS PRN PO PAIN / TEMP Last administered on 09/21/17 21:28; Start 09/15/17 at 07:45 Albuterol Sulfate (Ventolin Hfa) 1 puff PRN Q6HRS PRN IH FOR ASTHMA; Start at 07:45; Stop 09/15/17 at 08:06; Status DC Cetirizine HCl (ZyrTEC) 10 mg DAILY PO Last administered on 09/24/17 09:01; Start 09/15/17 at 09:00 Vitamin D (Vitamin D3) 2,000 unit DAILY PO Last administered on 09/24/17 09: 00; Start 09/15/17 at 09:00 Fenofibrate (Tricor) 48 mg QHS PO Last administered on 09/24/17 19:49; Start 09/15/17 at 21:00 Guaifenesin (Robitussin) 100 mg PRN Q4HRS PRN PO COUGH; Start 09/15/17 at 07: 45 Levothyroxine Sodium (Synthroid) 75 mcg DAILY07 PO Last administered on 05:21; Start 09/15/17 at 08:00; Stop 09/16/17 at 15:10; Status DC Polyethylene Glycol (miraLAX) 17 gm QPM PO Last administered on 09/24/17 18: 44; Start 09/15/17 at 18:00 Sennosides (Senna) 8.6 mg BID PO Last administered on 09/24/17 19:47; Start 09/15/17 at 09:00 Tramadol HCl (Ultram) 50 mg Q6HRS PO Last administered on 09/24/17 18:45; Start 09/15/17 at 12:00 Gabapentin (Neurontin) 600 mg QHS PO Last administered on 09/24/17 19:47; Start 09/15/17 at 21:00 Non-Formulary Medication 150 mg [id number] IM ; Start 09/15/17 at 07:45; Stop at 07:53; Status DC Fish Oil (Fish Oil) 1,000 mg BID PO Last administered on 09/19/17 09:00; Start 09/15/17 at 09:00; Stop 09/20/17 at 14:50; Status DC Famotidine (Pepcid) 20 mg BID PO Last administered on 09/24/17 19:47; Start 09/15/17 at 09:00 Albuterol Sulfate (Ventolin) 2.5 mg PRN Q6HRS PRN NEB SHORTNESS OF BREATH; Start 09/15/17 at 08:00 Clozapine (Clozaril) 25 mg HS PO Last administered on 09/23/17 19:26; Start 09/15/17 at 21:00; Stop 09/24/17 at 19:25; Status DC Lidocaine (Lidoderm) 1 patch DAILY TD Last administered on 09/24/17 09:02; Start 09/16/17 at 15:15 Levothyroxine Sodium (Synthroid) 75 mcg DAILY07 PO ; Start 09/17/17 at 07:00; Stop 09/17/17 at 07:00; Status DC Levothyroxine Sodium (Synthroid) 50 mcg DAILY07 PO Last administered on 06:12; Start 09/17/17 at 07:00 Vitamin D (Vitamin D3) 50,000 unit WEEKLY PO Last administered on 09/24/17 09 :01; Start 09/17/17 at 18:00 Al Hydroxide/Mg Hydroxide (Mylanta Plus Xs) 30 ml PRN AFTMEALHC PRN PO DYSPEPSIA Last administered on 09/22/17 07:32; Start 09/18/17 at 18:00 Magnesium Hydroxide (Milk Of Magnesia) 2,400 mg PRN DAILY PRN PO CONSTIPATION Last administered on 09/19/17 09:00; Start 09/18/17 at 19:45 Clozapine (Clozaril) 50 mg HS PO Last administered on 09/24/17 19:47; Start 09/24/17 at 21:00 Risperidone (RisperDAL) 2.5 mg BID PO Last administered on 09/24/17 19:48; Start 09/24/17 at 21:00 Trazodone HCl (Desyrel) 100 mg QHS PO Last administered on 09/24/17 19:48; Start 09/24/17 at 21:00 Trazodone HCl (Desyrel) 100 mg PRN QHS PRN PO INSOMNIA; Start 09/24/17 at 19: 30 Active Scripts Active Reported Zantac (Ranitidine Hcl) 150 Mg Tablet 150 Mg PO BID Vitamin D3 (Cholecalciferol (Vitamin D3)) 1,000 Unit Tablet 2,000 Unit PO DAILY Tylenol (Acetaminophen) 325 Mg Tablet 650 Mg PO PRN Q4HRS PRN Senna (Sennosides) 8.6 Mg Tablet 8.6 Mg PO BID Saphris (Asenapine Maleate) 5 Mg Tab.subl 5 Mg SL BID Invega (Paliperidone) 6 Mg Tab.er.24 6 Mg PO DAILY Miralax (Polyethylene Glycol 3350) 119 Gm Powder 17 Gm PO QPM [place] Carbonate 300 Mg Capsule 300 Mg PO BID Levothyroxine Sodium 75 Mcg Tablet 75 Mcg PO DAILY07 Haloperidol 10 Mg Tablet 10 Mg PO BID Mag-Tussin (Guaifenesin) 100 Mg/5 Ml Liquid 100 Mg PO PRN Q4HRS PRN Gabapentin 600 Mg Tablet 600 Mg PO QHS [place] 3 1,000 Mg Softgel ([place]-3 Fatty Acids/Fish Oil) 1 Each Capsule 1,000 Mg PO BID Fenofibrate (Fenofibrate Nanocrystallized) 48 Mg Tablet 48 Mg PO QHS Aricept (Donepezil Hcl) 5 Mg Tablet 5 Mg PO DAILY Depakote (Divalproex Sodium) 500 Mg Tablet.dr 1,000 Mg PO QHS Depakote (Divalproex Sodium) 250 Mg Tablet.dr 250 Mg PO DAILY Depo-Provera (Medroxyprogesterone Acetate) 150 Mg/1 Ml Disp.syrin 150 Mg IM [id number] Cetirizine Hcl 10 Mg Tablet 10 Mg PO DAILY Benztropine Mesylate 1 Mg Tablet 1 Mg PO BID Ventolin Hfa Inhaler (Albuterol Sulfate) 18 Gm Hfa.aer.ad 1 Puff IH PRN Q6HRS PRN Tramadol Hcl (Tramadol HCl) 50 Mg Tablet 50 Mg PO Q6HRS Diagnosis: Problems: (1) Anxiety disorder (2) Bipolar affective, mixed, sev w/ psych (3) Schizoaffective disorder, chronic condition with acute exacerbation JEREMIAS FOSTER MD Sep 24, 2017 20:32
[2017-09-24] MEDS: traZODone 100 MG TABLET. PO PRN (22:38)
[2017-09-25] MEDS: LEVOTHYROXINE 50 MCG TABLET PO SCH (06:20)
[2017-09-25] MEDS: traMADol 50 MG TABLET PO SCH ×3 (06:20→17:36)
[2017-09-25 06:35] VITALS: BP 109/69
[2017-09-25] MEDS: CETIRIZINE HCL 10 MG TABLET PO SCH (08:55)
[2017-09-25] MEDS: DIVALPROEX SODIUM 250 MG TABLET.DR. PO SCH ×2 (08:56→19:57)
[2017-09-25] MEDS: SENNOSIDES 8.6 MG TABLET PO SCH ×2 (08:56→19:57)
[2017-09-25] MEDS: risperiDONE 1 MG TABLET. PO SCH ×2 (09:05→19:58)
[2017-09-25] MEDS: BENZTROPINE MESYLATE 1 MG TABLET PO SCH ×2 (09:05→19:57)
[2017-09-25] MEDS: FAMOTIDINE 20 MG TABLET PO SCH ×2 (09:06→19:57)
[2017-09-25] MEDS: DONEPEZIL HCL 5 MG TABLET. PO SCH (09:06)
[2017-09-25] MEDS: LITHIUM CARBONATE 150 MG CAPSULE. PO SCH ×2 (09:06→19:59)
[2017-09-25] MEDS: NICOTINE 14MG PATCH. TD SCH (09:06)
[2017-09-25] MEDS: HALOPERIDOL 5 MG TABLET PO SCH ×2 (09:06→19:59)
[2017-09-25] MEDS: CHOLECALCIFEROL (VITAMIN D3) 1,000 UNIT TABLET PO SCH (09:07)
[2017-09-25] MEDS: LIDOCAINE (700MG/PATCH) PATCH. TD SCH (09:07)
[2017-09-25 16:06] VITALS: BP 109/80
[2017-09-25] MEDS: POLYETHYLENE GLYCOL 3350 17 GM PACKET. PO SCH (17:36)
[2017-09-25] MEDS: GABAPENTIN 300 MG CAPSULE. PO SCH (19:57)
[2017-09-25] MEDS: traZODone 100 MG TABLET. PO SCH (19:57)
[2017-09-25] MEDS: cloZAPine 25 MG TABLET PO SCH (19:59)
[2017-09-25] MEDS: FENOFIBRATE NANOCRYSTALLIZED 48 MG TABLET PO SCH (19:59)
--- NOTE | 2017-09-25 21:52 | PDOC ---
Exam Abe Demential Exam: Abe Note: Please also refer to the separate dictated note~for this date of service dictated separately.~Patient seen individually. Discussed the patient with Nursing staff reviewed the chart.~Reviewed interim history and current functioning. Reviewed vital signs,~Labs/ Radiology~and current medications noted below. Continue current treatment with the changes noted in the dictated addendum note Assessment: Vital Signs: Vital Signs Date Time Temp Pulse Resp B/P (MAP) Pulse Ox O2 Delivery O2 Flow Rate FiO2 09/25/17 18:52 18 95 Room Air 09/25/17 16:06 98.2 93 109/80 (90) I&O Intake and Output 09/26/17 07:00 Intake Total 1080 ml Balance 1080 ml Intake Oral 1080 ml Current Medications: Meds: Current Medications Nicotine (Nicoderm Cq 14mg) 1 patch DAILY TD Last administered on 09/25/17 09 :06; Start 09/16/17 at 09:00 Benztropine Mesylate (Cogentin) 1 mg BID PO Last administered on 09/25/17 19: 57; Start 09/15/17 at 09:00 Divalproex Sodium (Depakote) 250 mg DAILY PO Last administered on 09/25/17 08 :56; Start 09/15/17 at 09:00 Donepezil HCl (Aricept) 5 mg DAILY PO Last administered on 09/25/17 09:06; Start 09/15/17 at 09:00 Non-Formulary Medication 5 mg BID SL ; Start 09/15/17 at 09:00; Stop 09/15/17 at 09:00; Status DC Divalproex Sodium (Depakote) 1,000 mg QHS PO Last administered on 09/25/17 19 :57; Start 09/15/17 at 21:00 Haloperidol (Haldol) 10 mg BID PO Last administered on 09/25/17 19:59; Start 09/15/17 at 09:00 [place] Carbonate 300 mg BID PO Last administered on 09/25/17 19:59; Start 09/15/17 at 09:00 Risperidone (RisperDAL) 3 mg BID PO Last administered on 09/24/17 09:00; Start 09/15/17 at 09:00; Stop 09/24/17 at 19:25; Status DC Nicotine (Nicoderm Cq 14mg) 1 patch 1X ONCE TD Last administered on 04:38; Start 09/15/17 at 04:30; Stop 09/15/17 at 04:35; Status DC Olanzapine (ZyPREXA ZYDIS) 2.5 mg PRN Q2HR PRN PO PSYCHOSIS; Start 09/15/17 at 05:15 Acetaminophen (Tylenol) 650 mg PRN Q4HRS PRN PO PAIN / TEMP Last administered on 09/21/17 21:28; Start 09/15/17 at 07:45 Albuterol Sulfate (Ventolin Hfa) 1 puff PRN Q6HRS PRN IH FOR ASTHMA; Start at 07:45; Stop 09/15/17 at 08:06; Status DC Cetirizine HCl (ZyrTEC) 10 mg DAILY PO Last administered on 09/25/17 08:55; Start 09/15/17 at 09:00 Vitamin D (Vitamin D3) 2,000 unit DAILY PO Last administered on 09/25/17 09: 07; Start 09/15/17 at 09:00 Fenofibrate (Tricor) 48 mg QHS PO Last administered on 09/25/17 19:59; Start 09/15/17 at 21:00 Guaifenesin (Robitussin) 100 mg PRN Q4HRS PRN PO COUGH; Start 09/15/17 at 07: 45 Levothyroxine Sodium (Synthroid) 75 mcg DAILY07 PO Last administered on 05:21; Start 09/15/17 at 08:00; Stop 09/16/17 at 15:10; Status DC Polyethylene Glycol (miraLAX) 17 gm QPM PO Last administered on 09/25/17 17: 36; Start 09/15/17 at 18:00 Sennosides (Senna) 8.6 mg BID PO Last administered on 09/25/17 19:57; Start 09/15/17 at 09:00 Tramadol HCl (Ultram) 50 mg Q6HRS PO Last administered on 09/25/17 17:36; Start 09/15/17 at 12:00 Gabapentin (Neurontin) 600 mg QHS PO Last administered on 09/25/17 19:57; Start 09/15/17 at 21:00 Non-Formulary Medication 150 mg [id number] IM ; Start 09/15/17 at 07:45; Stop at 07:53; Status DC Fish Oil (Fish Oil) 1,000 mg BID PO Last administered on 09/19/17 09:00; Start 09/15/17 at 09:00; Stop 09/20/17 at 14:50; Status DC Famotidine (Pepcid) 20 mg BID PO Last administered on 09/25/17 19:57; Start 09/15/17 at 09:00 Albuterol Sulfate (Ventolin) 2.5 mg PRN Q6HRS PRN NEB SHORTNESS OF BREATH; Start 09/15/17 at 08:00 Clozapine (Clozaril) 25 mg HS PO Last administered on 09/23/17 19:26; Start 09/15/17 at 21:00; Stop 09/24/17 at 19:25; Status DC Lidocaine (Lidoderm) 1 patch DAILY TD Last administered on 09/25/17 09:07; Start 09/16/17 at 15:15 Levothyroxine Sodium (Synthroid) 75 mcg DAILY07 PO ; Start 09/17/17 at 07:00; Stop 09/17/17 at 07:00; Status DC Levothyroxine Sodium (Synthroid) 50 mcg DAILY07 PO Last administered on 06:20; Start 09/17/17 at 07:00 Vitamin D (Vitamin D3) 50,000 unit WEEKLY PO Last administered on 09/24/17 09 :01; Start 09/17/17 at 18:00 Al Hydroxide/Mg Hydroxide (Mylanta Plus Xs) 30 ml PRN AFTMEALHC PRN PO DYSPEPSIA Last administered on 09/22/17 07:32; Start 09/18/17 at 18:00 Magnesium Hydroxide (Milk Of Magnesia) 2,400 mg PRN DAILY PRN PO CONSTIPATION Last administered on 09/19/17 09:00; Start 09/18/17 at 19:45 Clozapine (Clozaril) 50 mg HS PO Last administered on 09/25/17 19:59; Start 09/24/17 at 21:00 Risperidone (RisperDAL) 2.5 mg BID PO Last administered on 10/31/17at 09:05; Start 09/24/17 at 21:00; Stop 09/25/17 at 18:32; Status DC Trazodone HCl (Desyrel) 100 mg QHS PO Last administered on 09/25/17 19:57; Start 09/24/17 at 21:00 Trazodone HCl (Desyrel) 100 mg PRN QHS PRN PO INSOMNIA Last administered on 22:38; Start 09/24/17 at 19:30 Risperidone (RisperDAL) 3 mg BID PO Last administered on 09/25/17 19:58; Start 09/25/17 at 21:00 Active Scripts Active Reported Zantac (Ranitidine Hcl) 150 Mg Tablet 150 Mg PO BID Vitamin D3 (Cholecalciferol (Vitamin D3)) 1,000 Unit Tablet 2,000 Unit PO DAILY Tylenol (Acetaminophen) 325 Mg Tablet 650 Mg PO PRN Q4HRS PRN Senna (Sennosides) 8.6 Mg Tablet 8.6 Mg PO BID Saphris (Asenapine Maleate) 5 Mg Tab.subl 5 Mg SL BID Invega (Paliperidone) 6 Mg Tab.er.24 6 Mg PO DAILY Miralax (Polyethylene Glycol 3350) 119 Gm Powder 17 Gm PO QPM [place] Carbonate 300 Mg Capsule 300 Mg PO BID Levothyroxine Sodium 75 Mcg Tablet 75 Mcg PO DAILY07 Haloperidol 10 Mg Tablet 10 Mg PO BID Mag-Tussin (Guaifenesin) 100 Mg/5 Ml Liquid 100 Mg PO PRN Q4HRS PRN Gabapentin 600 Mg Tablet 600 Mg PO QHS [place] 3 1,000 Mg Softgel ([place] Fatty Acids/Fish Oil) 1 Each Capsule 1,000 Mg PO BID Fenofibrate (Fenofibrate Nanocrystallized) 48 Mg Tablet 48 Mg PO QHS Aricept (Donepezil Hcl) 5 Mg Tablet 5 Mg PO DAILY Depakote (Divalproex Sodium) 500 Mg Tablet.dr 1,000 Mg PO QHS Depakote (Divalproex Sodium) 250 Mg Tablet.dr 250 Mg PO DAILY Depo-Provera (Medroxyprogesterone Acetate) 150 Mg/1 Ml Disp.syrin 150 Mg IM [id number] Cetirizine Hcl 10 Mg Tablet 10 Mg PO DAILY Benztropine Mesylate 1 Mg Tablet 1 Mg PO BID Ventolin Hfa Inhaler (Albuterol Sulfate) 18 Gm Hfa.aer.ad 1 Puff IH PRN Q6HRS PRN Tramadol Hcl (Tramadol HCl) 50 Mg Tablet 50 Mg PO Q6HRS Diagnosis: Problems: (1) Anxiety disorder (2) Bipolar affective, mixed, sev w/ psych (3) Schizoaffective disorder, chronic condition with acute exacerbation JEREMIAS FOSTER MD Sep 25, 2017 21:52
--- NOTE | 2017-09-26 00:31 | PN ---
DATE: 09/24/2017 PSYCHIATRIC PROGRESS NOTE This is a late entry for 09/24/2017, covers elements not covered in my initial note of 09/24/2017. SUBJECTIVE: I met with the patient the evening of 09/24/2017. The patient slept just 1-3/4 hours previous evening. Discussed the patient with Dr. Chacon who covered for me over the past 1 week during my vacation. I had seen the patient prior to leaving on vacation, but she did not seem to recognize me as I met with her the evening of 09/24/2017. She slept 1-3/4 hours the previous evening. REVIEW OF SYSTEMS: No CV, , pulmonary, eye, ENT system symptoms on review. Reliability varies. MENTAL STATUS EXAM: Reasonably oriented. Speech is coherent, abstraction fair, computation impaired, language function intact. She is still somewhat paranoid, suspicious. No active suicidal or homicidal ideation. LABORATORY DATA: Reviewed. IMPRESSION: Schizoaffective disorder, bipolar type, mixed with psychotic features; anxiety disorder, unspecified; impulse control disorder, unspecified. PLAN: Continue Cogentin 1 mg b.i.d. She is on Depo-Provera 150 mg IM every 3 months, Depakote is 250 mg in the morning and 1000 mg at bedtime, level therapeutic at 65 a day, Aricept 5 mg a day, Haldol 10 mg b.i.d., lithium carbonate 300 mg b.i.d. with a level of 0.6, Zyprexa is p.r.n., Clozaril 25 mg p.o. at bedtime, absolute neutrophil count on 09/24/2017 is unremarkable, we will increase the Clozaril to 50 mg at bedtime. Continue weekly CBC, absolute neutrophil count, chemistry profile. Reduce the Risperdal from 3 mg b.i.d. to 2.5 mg b.i.d. as we are increasing the Clozaril. Reviewed drug interactions at length. Risk/benefit ratio favors no further change at this time. JEREMIAS FOSTER MD DR: REX/maite JOB#: [id number] / [id number]
[2017-09-26 05:33] VITALS: BP 119/80
[2017-09-26] MEDS: LEVOTHYROXINE 50 MCG TABLET PO SCH (06:10)
[2017-09-26] MEDS: traMADol 50 MG TABLET PO SCH ×4 (06:11→17:20)
[2017-09-26] MEDS: CHOLECALCIFEROL (VITAMIN D3) 1,000 UNIT TABLET PO SCH (09:01)
[2017-09-26] MEDS: DIVALPROEX SODIUM 250 MG TABLET.DR. PO SCH ×2 (09:01→19:26)
[2017-09-26] MEDS: risperiDONE 1 MG TABLET. PO SCH ×2 (09:01→19:27)
[2017-09-26] MEDS: BENZTROPINE MESYLATE 1 MG TABLET PO SCH ×2 (09:01→19:26)
[2017-09-26] MEDS: SENNOSIDES 8.6 MG TABLET PO SCH ×2 (09:01→19:27)
[2017-09-26] MEDS: NICOTINE 14MG PATCH. TD SCH (09:02)
[2017-09-26] MEDS: DONEPEZIL HCL 5 MG TABLET. PO SCH (09:02)
[2017-09-26] MEDS: CETIRIZINE HCL 10 MG TABLET PO SCH (09:02)
[2017-09-26] MEDS: LITHIUM CARBONATE 150 MG CAPSULE. PO SCH ×2 (09:02→19:27)
[2017-09-26] MEDS: FAMOTIDINE 20 MG TABLET PO SCH ×2 (09:02→19:27)
[2017-09-26] MEDS: HALOPERIDOL 5 MG TABLET PO SCH ×2 (09:04→19:26)
[2017-09-26] MEDS: LIDOCAINE (700MG/PATCH) PATCH. TD SCH (09:06)
[2017-09-26 16:27] VITALS: BP 106/73
[2017-09-26] MEDS: POLYETHYLENE GLYCOL 3350 17 GM PACKET. PO SCH (17:20)
[2017-09-26] MEDS: cloZAPine 25 MG TABLET PO SCH (19:26)
[2017-09-26] MEDS: GABAPENTIN 300 MG CAPSULE. PO SCH (19:26)
[2017-09-26] MEDS: FENOFIBRATE NANOCRYSTALLIZED 48 MG TABLET PO SCH (19:27)
[2017-09-26] MEDS: traZODone 100 MG TABLET. PO SCH (19:27)
--- NOTE | 2017-09-26 20:41 | PDOC ---
Exam Abe Demential Exam: Abe Note: Please also refer to the separate dictated note~for this date of service dictated separately.~Patient seen individually. Discussed the patient with Nursing staff reviewed the chart.~Reviewed interim history and current functioning. Reviewed vital signs,~Labs/ Radiology~and current medications noted below. Continue current treatment with the changes noted in the dictated addendum note Assessment: Vital Signs: Vital Signs Date Time Temp Pulse Resp B/P (MAP) Pulse Ox O2 Delivery O2 Flow Rate FiO2 09/26/17 19:30 18 95 Room Air 09/26/17 16:27 97.2 93 106/73 (84) I&O Intake and Output 09/27/17 07:00 Intake Total 1200 ml Balance 1200 ml Intake Oral 1200 ml Current Medications: Meds: Current Medications Nicotine (Nicoderm Cq 14mg) 1 patch DAILY TD Last administered on 09/26/17 09: 02; Start 09/16/17 at 09:00 Benztropine Mesylate (Cogentin) 1 mg BID PO Last administered on 09/26/17 19: 26; Start 09/15/17 at 09:00 Divalproex Sodium (Depakote) 250 mg DAILY PO Last administered on 09/26/17 09: 01; Start 09/15/17 at 09:00 Donepezil HCl (Aricept) 5 mg DAILY PO Last administered on 09/26/17 09:02; Start 09/15/17 at 09:00 Non-Formulary Medication 5 mg BID SL ; Start 09/15/17 at 09:00; Stop 09/15/17 at 09:00; Status DC Divalproex Sodium (Depakote) 1,000 mg QHS PO Last administered on 09/26/17 19: 26; Start 09/15/17 at 21:00 Haloperidol (Haldol) 10 mg BID PO Last administered on 09/26/17 19:26; Start 09/15/17 at 09:00 [place] Carbonate 300 mg BID PO Last administered on 09/26/17 19:27; Start at 09:00 Risperidone (RisperDAL) 3 mg BID PO Last administered on 09/24/17 09:00; Start 09/15/17 at 09:00; Stop 09/24/17 at 19:25; Status DC Nicotine (Nicoderm Cq 14mg) 1 patch 1X ONCE TD Last administered on 04:38; Start 09/15/17 at 04:30; Stop 09/15/17 at 04:35; Status DC Olanzapine (ZyPREXA ZYDIS) 2.5 mg PRN Q2HR PRN PO PSYCHOSIS; Start 09/15/17 at 05:15 Acetaminophen (Tylenol) 650 mg PRN Q4HRS PRN PO PAIN / TEMP Last administered on 09/21/17 21:28; Start 09/15/17 at 07:45 Albuterol Sulfate (Ventolin Hfa) 1 puff PRN Q6HRS PRN IH FOR ASTHMA; Start at 07:45; Stop 09/15/17 at 08:06; Status DC Cetirizine HCl (ZyrTEC) 10 mg DAILY PO Last administered on 09/26/17 09:02; Start 09/15/17 at 09:00 Vitamin D (Vitamin D3) 2,000 unit DAILY PO Last administered on 09/26/17 09:01 ; Start 09/15/17 at 09:00 Fenofibrate (Tricor) 48 mg QHS PO Last administered on 09/26/17 19:27; Start 09/15/17 at 21:00 Guaifenesin (Robitussin) 100 mg PRN Q4HRS PRN PO COUGH; Start 09/15/17 at 07: 45 Levothyroxine Sodium (Synthroid) 75 mcg DAILY07 PO Last administered on 05:21; Start 09/15/17 at 08:00; Stop 09/16/17 at 15:10; Status DC Polyethylene Glycol (miraLAX) 17 gm QPM PO Last administered on 09/26/17 17:20 ; Start 09/15/17 at 18:00 Sennosides (Senna) 8.6 mg BID PO Last administered on 09/26/17 19:27; Start 09/15/17 at 09:00 Tramadol HCl (Ultram) 50 mg Q6HRS PO Last administered on 09/26/17 17:20; Start 09/15/17 at 12:00 Gabapentin (Neurontin) 600 mg QHS PO Last administered on 09/26/17 19:26; Start 09/15/17 at 21:00 Non-Formulary Medication 150 mg [id number] IM ; Start 09/15/17 at 07:45; Stop at 07:53; Status DC Fish Oil (Fish Oil) 1,000 mg BID PO Last administered on 09/19/17 09:00; Start 09/15/17 at 09:00; Stop 09/20/17 at 14:50; Status DC Famotidine (Pepcid) 20 mg BID PO Last administered on 09/26/17 19:27; Start 09/15/17 at 09:00 Albuterol Sulfate (Ventolin) 2.5 mg PRN Q6HRS PRN NEB SHORTNESS OF BREATH; Start 09/15/17 at 08:00 Clozapine (Clozaril) 25 mg HS PO Last administered on 09/23/17 19:26; Start 09/15/17 at 21:00; Stop 09/24/17 at 19:25; Status DC Lidocaine (Lidoderm) 1 patch DAILY TD Last administered on 09/26/17 09:06; Start 09/16/17 at 15:15 Levothyroxine Sodium (Synthroid) 75 mcg DAILY07 PO ; Start 09/17/17 at 07:00; Stop 09/17/17 at 07:00; Status DC Levothyroxine Sodium (Synthroid) 50 mcg DAILY07 PO Last administered on 06:10; Start 09/17/17 at 07:00 Vitamin D (Vitamin D3) 50,000 unit WEEKLY PO Last administered on 09/24/17 09 :01; Start 09/17/17 at 18:00 Al Hydroxide/Mg Hydroxide (Mylanta Plus Xs) 30 ml PRN AFTMEALHC PRN PO DYSPEPSIA Last administered on 09/22/17 07:32; Start 09/18/17 at 18:00 Magnesium Hydroxide (Milk Of Magnesia) 2,400 mg PRN DAILY PRN PO CONSTIPATION Last administered on 09/19/17 09:00; Start 09/18/17 at 19:45 Clozapine (Clozaril) 50 mg HS PO Last administered on 09/26/17 19:26; Start 09/24/17 at 21:00 Risperidone (RisperDAL) 2.5 mg BID PO Last administered on 10/31/17at 09:05; Start 09/24/17 at 21:00; Stop 09/25/17 at 18:32; Status DC Trazodone HCl (Desyrel) 100 mg QHS PO Last administered on 09/26/17 19:27; Start 09/24/17 at 21:00 Trazodone HCl (Desyrel) 100 mg PRN QHS PRN PO INSOMNIA Last administered on 22:38; Start 09/24/17 at 19:30 Risperidone (RisperDAL) 3 mg BID PO Last administered on 09/26/17 19:27; Start 09/25/17 at 21:00 Active Scripts Active Reported Zantac (Ranitidine Hcl) 150 Mg Tablet 150 Mg PO BID Vitamin D3 (Cholecalciferol (Vitamin D3)) 1,000 Unit Tablet 2,000 Unit PO DAILY Tylenol (Acetaminophen) 325 Mg Tablet 650 Mg PO PRN Q4HRS PRN Senna (Sennosides) 8.6 Mg Tablet 8.6 Mg PO BID Saphris (Asenapine Maleate) 5 Mg Tab.subl 5 Mg SL BID Invega (Paliperidone) 6 Mg Tab.er.24 6 Mg PO DAILY Miralax (Polyethylene Glycol 3350) 119 Gm Powder 17 Gm PO QPM [place] Carbonate 300 Mg Capsule 300 Mg PO BID Levothyroxine Sodium 75 Mcg Tablet 75 Mcg PO DAILY07 Haloperidol 10 Mg Tablet 10 Mg PO BID Mag-Tussin (Guaifenesin) 100 Mg/5 Ml Liquid 100 Mg PO PRN Q4HRS PRN Gabapentin 600 Mg Tablet 600 Mg PO QHS [place] 3 1,000 Mg Softgel ([place]-3 Fatty Acids/Fish Oil) 1 Each Capsule 1,000 Mg PO BID Fenofibrate (Fenofibrate Nanocrystallized) 48 Mg Tablet 48 Mg PO QHS Aricept (Donepezil Hcl) 5 Mg Tablet 5 Mg PO DAILY Depakote (Divalproex Sodium) 500 Mg Tablet.dr 1,000 Mg PO QHS Depakote (Divalproex Sodium) 250 Mg Tablet.dr 250 Mg PO DAILY Depo-Provera (Medroxyprogesterone Acetate) 150 Mg/1 Ml Disp.syrin 150 Mg IM [id number] Cetirizine Hcl 10 Mg Tablet 10 Mg PO DAILY Benztropine Mesylate 1 Mg Tablet 1 Mg PO BID Ventolin Hfa Inhaler (Albuterol Sulfate) 18 Gm Hfa.aer.ad 1 Puff IH PRN Q6HRS PRN Tramadol Hcl (Tramadol HCl) 50 Mg Tablet 50 Mg PO Q6HRS Diagnosis: Problems: (1) Anxiety disorder (2) Bipolar affective, mixed, sev w/ psych (3) Schizoaffective disorder, chronic condition with acute exacerbation JEREMIAS FOSTER MD Sep 26, 2017 20:41
--- NOTE | 2017-09-26 22:17 | PN ---
DATE: 09/25/2017 PSYCHIATRIC PROGRESS NOTE This is a late entry for 09/25/2017, covers elements not covered in my initial note of 09/25/2017. SUBJECTIVE: I met with the patient the evening of 09/25/2017. The patient has been increasingly agitated, restless, and more paranoid. Part of this could be due to the fact we just reduced her Risperdal since we had initiated Clozaril. She has been quite psychotic, believes her family is locked downstairs and that her cushion assembler was waiting for her downstairs and registration. She is insistent, repetitive, and obsessive about being discharged as I met with her individually and I processed this with her at great length. REVIEW OF SYSTEMS: No CV, , pulmonary, eye, ENT system symptoms on review. She has vague somatic symptoms. MENTAL STATUS EXAM: Oriented to herself and situation. Speech coherent, abstraction fair, computation impaired, language function intact, attention span short. Mood and affect somewhat labile, much worse in the evening as I met with her and thereafter. LABORATORY DATA: Reviewed. IMPRESSION: Unchanged from initial note. PLAN: Increase Risperdal back from 2.5 mg b.i.d. to 3 mg b.i.d. and we will attempt dose reduction again in 2-3 days once the Clozaril is more effective. Maintain the rest of the psychotropics mentioned in my initial note. Reviewed drug interactions. Risk/benefit ratio favors no further change for now. JEREMIAS FOSTER MD DR: REX/maite JOB#: [id number] / [id number]
[2017-09-27 06:06] VITALS: BP 125/74
[2017-09-27] MEDS: traMADol 50 MG TABLET PO SCH ×5 (07:10→23:19)
[2017-09-27] MEDS: LEVOTHYROXINE 50 MCG TABLET PO SCH (07:10)
[2017-09-27] MEDS: LIDOCAINE (700MG/PATCH) PATCH. TD SCH (07:55)
[2017-09-27] MEDS: NICOTINE 14MG PATCH. TD SCH (07:55)
[2017-09-27] MEDS: LITHIUM CARBONATE 150 MG CAPSULE. PO SCH ×2 (07:56→19:14)
[2017-09-27] MEDS: FAMOTIDINE 20 MG TABLET PO SCH ×2 (07:56→19:16)
[2017-09-27] MEDS: CHOLECALCIFEROL (VITAMIN D3) 1,000 UNIT TABLET PO SCH (07:56)
[2017-09-27] MEDS: DONEPEZIL HCL 5 MG TABLET. PO SCH (07:56)
[2017-09-27] MEDS: SENNOSIDES 8.6 MG TABLET PO SCH ×2 (07:57→19:14)
[2017-09-27] MEDS: risperiDONE 1 MG TABLET. PO SCH ×2 (07:57→19:16)
[2017-09-27] MEDS: HALOPERIDOL 5 MG TABLET PO SCH ×2 (07:57→19:16)
[2017-09-27] MEDS: DIVALPROEX SODIUM 250 MG TABLET.DR. PO SCH ×2 (07:57→19:16)
[2017-09-27] MEDS: CETIRIZINE HCL 10 MG TABLET PO SCH (07:57)
[2017-09-27] MEDS: BENZTROPINE MESYLATE 1 MG TABLET PO SCH ×2 (07:57→19:14)
--- NOTE | 2017-09-27 10:16 | PN ---
DATE: 09/26/2017 PSYCHIATRIC PROGRESS NOTE This is a late entry, date of service 09/26/2017, covers elements not covered in my initial note of 09/26/2017. SUBJECTIVE: The patient was staffed at treatment team meeting with the entire team morning of 09/26/2017 seen individually evening of 09/26/2017. She slept 5-1/2 hours. Reviewed history, diagnoses, treatment, discharge plans at length at the treatment team meeting. She has been holding food at times and her medications, somewhat delusional. She was in the Emergency Room because she broke her leg. REVIEW OF SYSTEMS: No CV, , pulmonary, eye, ENT system symptoms on review. MENTAL STATUS EXAM: The patient is reasonably oriented. Speech is coherent, abstraction fair, computation impaired, language function intact, attention span short. Mood and affect remain somewhat labile. She is still psychotic. No active suicidal or homicidal ideation. LABORATORY DATA: Reviewed. IMPRESSION: Unchanged from initial note. PLAN: Risperdal has been increased back to 3 mg b.i.d., Clozaril has been increased. Continue psychotropics mentioned in my initial note. Review drug interactions. Risk/benefit ratio favors no further change. JEREMIAS FOSTER MD DR: REX/maite JOB#: [id number] / [id number]
[2017-09-27 16:14] VITALS: BP 127/58
[2017-09-27] MEDS: POLYETHYLENE GLYCOL 3350 17 GM PACKET. PO SCH (17:00)
[2017-09-27] MEDS: MAGNESIUM HYDROXIDE 2,400 MG/30 ML ORAL.SUSP. PO PRN (17:05)
[2017-09-27] MEDS: NICOTINE POLACRILEX GUM 2 MG GUM. BC PRN (18:39)
[2017-09-27] MEDS: GABAPENTIN 300 MG CAPSULE. PO SCH (19:14)
[2017-09-27] MEDS: cloZAPine 25 MG TABLET PO SCH (19:16)
[2017-09-27] MEDS: traZODone 100 MG TABLET. PO SCH (19:16)
[2017-09-27] MEDS: FENOFIBRATE NANOCRYSTALLIZED 48 MG TABLET PO SCH (19:17)
--- NOTE | 2017-09-27 20:31 | PDOC ---
Exam Abe Demential Exam: Abe Note: Please also refer to the separate dictated note~for this date of service dictated separately.~Patient seen individually. Discussed the patient with Nursing staff reviewed the chart.~Reviewed interim history and current functioning. Reviewed vital signs,~Labs/ Radiology~and current medications noted below. Continue current treatment with the changes noted in the dictated addendum note Assessment: Vital Signs: Vital Signs Date Time Temp Pulse Resp B/P (MAP) Pulse Ox O2 Delivery O2 Flow Rate FiO2 09/27/17 16:14 97.3 74 16 127/58 (81) 96 Room Air I&O Intake and Output 09/28/17 07:00 Intake Total 1140 ml Balance 1140 ml Intake Oral 1140 ml Current Medications: Meds: Current Medications Nicotine (Nicoderm Cq 14mg) 1 patch DAILY TD Last administered on 09/27/17 07: 55; Start 09/16/17 at 09:00; Stop 09/27/17 at 14:12; Status DC Benztropine Mesylate (Cogentin) 1 mg BID PO Last administered on 09/27/17 19: 14; Start 09/15/17 at 09:00 Divalproex Sodium (Depakote) 250 mg DAILY PO Last administered on 09/27/17 07: 57; Start 09/15/17 at 09:00 Donepezil HCl (Aricept) 5 mg DAILY PO Last administered on 09/27/17 07:56; Start 09/15/17 at 09:00 Non-Formulary Medication 5 mg BID SL ; Start 09/15/17 at 09:00; Stop 09/15/17 at 09:00; Status DC Divalproex Sodium (Depakote) 1,000 mg QHS PO Last administered on 09/27/17 19: 16; Start 09/15/17 at 21:00 Haloperidol (Haldol) 10 mg BID PO Last administered on 09/27/17 19:16; Start 09/15/17 at 09:00 [place] Carbonate 300 mg BID PO Last administered on 09/27/17 19:14; Start at 09:00 Risperidone (RisperDAL) 3 mg BID PO Last administered on 09/24/17 09:00; Start 09/15/17 at 09:00; Stop 09/24/17 at 19:25; Status DC Nicotine (Nicoderm Cq 14mg) 1 patch 1X ONCE TD Last administered on 04:38; Start 09/15/17 at 04:30; Stop 09/15/17 at 04:35; Status DC Olanzapine (ZyPREXA ZYDIS) 2.5 mg PRN Q2HR PRN PO PSYCHOSIS; Start 09/15/17 at 05:15 Acetaminophen (Tylenol) 650 mg PRN Q4HRS PRN PO PAIN / TEMP Last administered on 09/21/17 21:28; Start 09/15/17 at 07:45 Albuterol Sulfate (Ventolin Hfa) 1 puff PRN Q6HRS PRN IH FOR ASTHMA; Start at 07:45; Stop 09/15/17 at 08:06; Status DC Cetirizine HCl (ZyrTEC) 10 mg DAILY PO Last administered on 09/27/17 07:57; Start 09/15/17 at 09:00 Vitamin D (Vitamin D3) 2,000 unit DAILY PO Last administered on 09/27/17 07:56 ; Start 09/15/17 at 09:00 Fenofibrate (Tricor) 48 mg QHS PO Last administered on 09/27/17 19:17; Start 09/15/17 at 21:00 Guaifenesin (Robitussin) 100 mg PRN Q4HRS PRN PO COUGH; Start 09/15/17 at 07: 45 Levothyroxine Sodium (Synthroid) 75 mcg DAILY07 PO Last administered on 05:21; Start 09/15/17 at 08:00; Stop 09/16/17 at 15:10; Status DC Polyethylene Glycol (miraLAX) 17 gm QPM PO Last administered on 09/27/17 17:00 ; Start 09/15/17 at 18:00 Sennosides (Senna) 8.6 mg BID PO Last administered on 09/27/17 19:14; Start 09/15/17 at 09:00 Tramadol HCl (Ultram) 50 mg Q6HRS PO Last administered on 09/27/17 17:00; Start 09/15/17 at 12:00 Gabapentin (Neurontin) 600 mg QHS PO Last administered on 09/27/17 19:14; Start 09/15/17 at 21:00 Non-Formulary Medication 150 mg [id number] IM ; Start 09/15/17 at 07:45; Stop at 07:53; Status DC Fish Oil (Fish Oil) 1,000 mg BID PO Last administered on 09/19/17 09:00; Start 09/15/17 at 09:00; Stop 09/20/17 at 14:50; Status DC Famotidine (Pepcid) 20 mg BID PO Last administered on 09/27/17 19:16; Start 09/15/17 at 09:00 Albuterol Sulfate (Ventolin) 2.5 mg PRN Q6HRS PRN NEB SHORTNESS OF BREATH; Start 09/15/17 at 08:00 Clozapine (Clozaril) 25 mg HS PO Last administered on 09/23/17 19:26; Start 09/15/17 at 21:00; Stop 09/24/17 at 19:25; Status DC Lidocaine (Lidoderm) 1 patch DAILY TD Last administered on 09/27/17 07:55; Start 09/16/17 at 15:15 Levothyroxine Sodium (Synthroid) 75 mcg DAILY07 PO ; Start 09/17/17 at 07:00; Stop 09/17/17 at 07:00; Status DC Levothyroxine Sodium (Synthroid) 50 mcg DAILY07 PO Last administered on 07:10; Start 09/17/17 at 07:00 Vitamin D (Vitamin D3) 50,000 unit WEEKLY PO Last administered on 09/24/17 09 :01; Start 09/17/17 at 18:00 Al Hydroxide/Mg Hydroxide (Mylanta Plus Xs) 30 ml PRN AFTMEALHC PRN PO DYSPEPSIA Last administered on 09/22/17 07:32; Start 09/18/17 at 18:00 Magnesium Hydroxide (Milk Of Magnesia) 2,400 mg PRN DAILY PRN PO CONSTIPATION Last administered on 09/27/17 17:05; Start 09/18/17 at 19:45 Clozapine (Clozaril) 50 mg HS PO Last administered on 09/27/17 19:16; Start 09/24/17 at 21:00 Risperidone (RisperDAL) 2.5 mg BID PO Last administered on 09/25/17 09:05; Start 09/24/17 at 21:00; Stop 09/25/17 at 18:32; Status DC Trazodone HCl (Desyrel) 100 mg QHS PO Last administered on 09/27/17 19:16; Start 09/24/17 at 21:00 Trazodone HCl (Desyrel) 100 mg PRN QHS PRN PO INSOMNIA Last administered on 22:38; Start 09/24/17 at 19:30 Risperidone (RisperDAL) 3 mg BID PO Last administered on 09/27/17 19:16; Start 09/25/17 at 21:00 Nicotine Polacrilex (Nicorette Gum) 2 mg PRN Q1HR PRN BC SMOKING CESSATION Last administered on 09/27/17 18:39; Start 09/27/17 at 14:15 Active Scripts Active Reported Zantac (Ranitidine Hcl) 150 Mg Tablet 150 Mg PO BID Vitamin D3 (Cholecalciferol (Vitamin D3)) 1,000 Unit Tablet 2,000 Unit PO DAILY Tylenol (Acetaminophen) 325 Mg Tablet 650 Mg PO PRN Q4HRS PRN Senna (Sennosides) 8.6 Mg Tablet 8.6 Mg PO BID Saphris (Asenapine Maleate) 5 Mg Tab.subl 5 Mg SL BID Invega (Paliperidone) 6 Mg Tab.er.24 6 Mg PO DAILY Miralax (Polyethylene Glycol 3350) 119 Gm Powder 17 Gm PO QPM [place] Carbonate 300 Mg Capsule 300 Mg PO BID Levothyroxine Sodium 75 Mcg Tablet 75 Mcg PO DAILY07 Haloperidol 10 Mg Tablet 10 Mg PO BID Mag-Tussin (Guaifenesin) 100 Mg/5 Ml Liquid 100 Mg PO PRN Q4HRS PRN Gabapentin 600 Mg Tablet 600 Mg PO QHS [place] 3 1,000 Mg Softgel ([place]-3 Fatty Acids/Fish Oil) 1 Each Capsule 1,000 Mg PO BID Fenofibrate (Fenofibrate Nanocrystallized) 48 Mg Tablet 48 Mg PO QHS Aricept (Donepezil Hcl) 5 Mg Tablet 5 Mg PO DAILY Depakote (Divalproex Sodium) 500 Mg Tablet. 1,000 Mg PO QHS Depakote (Divalproex Sodium) 250 Mg Tablet.dr 250 Mg PO DAILY Depo-Provera (Medroxyprogesterone Acetate) 150 Mg/1 Ml Disp.syrin 150 Mg IM [id number] Cetirizine Hcl 10 Mg Tablet 10 Mg PO DAILY Benztropine Mesylate 1 Mg Tablet 1 Mg PO BID Ventolin Hfa Inhaler (Albuterol Sulfate) 18 Gm Hfa.aer.ad 1 Puff IH PRN Q6HRS PRN Tramadol Hcl (Tramadol HCl) 50 Mg Tablet 50 Mg PO Q6HRS Diagnosis: Problems: (1) Anxiety disorder (2) Bipolar affective, mixed, sev w/ psych (3) Schizoaffective disorder, chronic condition with acute exacerbation JEREMIAS FOSTER MD Sep 27, 2017 20:31
[2017-09-27] MEDS: traZODone 100 MG TABLET. PO PRN (23:18)
[2017-09-28 06:05] VITALS: BP 118/79
[2017-09-28] MEDS: traMADol 50 MG TABLET PO SCH ×4 (06:15→23:35)
[2017-09-28] MEDS: LEVOTHYROXINE 50 MCG TABLET PO SCH (06:15)
[2017-09-28] MEDS: LITHIUM CARBONATE 150 MG CAPSULE. PO SCH ×2 (08:04→19:36)
[2017-09-28] MEDS: SENNOSIDES 8.6 MG TABLET PO SCH ×2 (08:04→19:36)
[2017-09-28] MEDS: LIDOCAINE (700MG/PATCH) PATCH. TD SCH (08:04)
[2017-09-28] MEDS: CHOLECALCIFEROL (VITAMIN D3) 1,000 UNIT TABLET PO SCH (08:05)
[2017-09-28] MEDS: DIVALPROEX SODIUM 250 MG TABLET.DR. PO SCH ×2 (08:05→19:35)
[2017-09-28] MEDS: HALOPERIDOL 5 MG TABLET PO SCH ×2 (08:05→19:36)
[2017-09-28] MEDS: DONEPEZIL HCL 5 MG TABLET. PO SCH (08:05)
[2017-09-28] MEDS: FAMOTIDINE 20 MG TABLET PO SCH ×2 (08:05→19:36)
[2017-09-28] MEDS: CETIRIZINE HCL 10 MG TABLET PO SCH (08:05)
[2017-09-28] MEDS: BENZTROPINE MESYLATE 1 MG TABLET PO SCH ×2 (08:06→19:36)
[2017-09-28] MEDS: risperiDONE 1 MG TABLET. PO SCH ×2 (08:06→19:36)
[2017-09-28] MEDS: POLYETHYLENE GLYCOL 3350 17 GM PACKET. PO SCH (13:47)
[2017-09-28 16:01] VITALS: BP 124/88
[2017-09-28] MEDS: cloZAPine 25 MG TABLET PO SCH (19:36)
[2017-09-28] MEDS: GABAPENTIN 300 MG CAPSULE. PO SCH (19:36)
[2017-09-28] MEDS: traZODone 100 MG TABLET. PO SCH (19:36)
[2017-09-28] MEDS: FENOFIBRATE NANOCRYSTALLIZED 48 MG TABLET PO SCH (19:37)
--- NOTE | 2017-09-28 20:45 | PDOC ---
Exam Abe Demential Exam: Abe Note: Please also refer to the separate dictated note~for this date of service dictated separately.~Patient seen individually. Discussed the patient with Nursing staff reviewed the chart.~Reviewed interim history and current functioning. Reviewed vital signs,~Labs/ Radiology~and current medications noted below. Continue current treatment with the changes noted in the dictated addendum note Assessment: Vital Signs: Vital Signs Date Time Temp Pulse Resp B/P (MAP) Pulse Ox O2 Delivery O2 Flow Rate FiO2 09/28/17 16:01 98.4 87 16 124/88 (100) 95 09/28/17 06:05 Room Air I&O Intake and Output 09/29/17 07:00 Intake Total 1920 ml Balance 1920 ml Intake Oral 1920 ml Current Medications: Meds: Current Medications Nicotine (Nicoderm Cq 14mg) 1 patch DAILY TD Last administered on 09/27/17 07: 55; Start 09/16/17 at 09:00; Stop 09/27/17 at 14:12; Status DC Benztropine Mesylate (Cogentin) 1 mg BID PO Last administered on 09/28/17 19: 36; Start 09/15/17 at 09:00 Divalproex Sodium (Depakote) 250 mg DAILY PO Last administered on 09/28/17 08: 05; Start 09/15/17 at 09:00 Donepezil HCl (Aricept) 5 mg DAILY PO Last administered on 09/28/17 08:05; Start 09/15/17 at 09:00 Non-Formulary Medication 5 mg BID SL ; Start 09/15/17 at 09:00; Stop 09/15/17 at 09:00; Status DC Divalproex Sodium (Depakote) 1,000 mg QHS PO Last administered on 09/28/17 19: 35; Start 09/15/17 at 21:00 Haloperidol (Haldol) 10 mg BID PO Last administered on 09/28/17 19:36; Start 09/15/17 at 09:00 [place] Carbonate 300 mg BID PO Last administered on 09/28/17 19:36; Start at 09:00 Risperidone (RisperDAL) 3 mg BID PO Last administered on 09/24/17 09:00; Start 09/15/17 at 09:00; Stop 09/24/17 at 19:25; Status DC Nicotine (Nicoderm Cq 14mg) 1 patch 1X ONCE TD Last administered on 04:38; Start 09/15/17 at 04:30; Stop 09/15/17 at 04:35; Status DC Olanzapine (ZyPREXA ZYDIS) 2.5 mg PRN Q2HR PRN PO PSYCHOSIS; Start 09/15/17 at 05:15 Acetaminophen (Tylenol) 650 mg PRN Q4HRS PRN PO PAIN / TEMP Last administered on 09/21/17 21:28; Start 09/15/17 at 07:45 Albuterol Sulfate (Ventolin Hfa) 1 puff PRN Q6HRS PRN IH FOR ASTHMA; Start at 07:45; Stop 09/15/17 at 08:06; Status DC Cetirizine HCl (ZyrTEC) 10 mg DAILY PO Last administered on 09/28/17 08:05; Start 09/15/17 at 09:00 Vitamin D (Vitamin D3) 2,000 unit DAILY PO Last administered on 09/28/17 08:05 ; Start 09/15/17 at 09:00 Fenofibrate (Tricor) 48 mg QHS PO Last administered on 09/28/17 19:37; Start 09/15/17 at 21:00 Guaifenesin (Robitussin) 100 mg PRN Q4HRS PRN PO COUGH; Start 09/15/17 at 07: 45 Levothyroxine Sodium (Synthroid) 75 mcg DAILY07 PO Last administered on 05:21; Start 09/15/17 at 08:00; Stop 09/16/17 at 15:10; Status DC Polyethylene Glycol (miraLAX) 17 gm QPM PO Last administered on 09/28/17 13:47 ; Start 09/15/17 at 18:00 Sennosides (Senna) 8.6 mg BID PO Last administered on 09/28/17 19:36; Start 09/15/17 at 09:00 Tramadol HCl (Ultram) 50 mg Q6HRS PO Last administered on 09/28/17 17:34; Start 09/15/17 at 12:00 Gabapentin (Neurontin) 600 mg QHS PO Last administered on 09/28/17 19:36; Start 09/15/17 at 21:00 Non-Formulary Medication 150 mg [id number] IM ; Start 09/15/17 at 07:45; Stop at 07:53; Status DC Fish Oil (Fish Oil) 1,000 mg BID PO Last administered on 09/19/17 09:00; Start 09/15/17 at 09:00; Stop 09/20/17 at 14:50; Status DC Famotidine (Pepcid) 20 mg BID PO Last administered on 09/28/17 19:36; Start 09/15/17 at 09:00 Albuterol Sulfate (Ventolin) 2.5 mg PRN Q6HRS PRN NEB SHORTNESS OF BREATH; Start 09/15/17 at 08:00 Clozapine (Clozaril) 25 mg HS PO Last administered on 09/23/17 19:26; Start 09/15/17 at 21:00; Stop 09/24/17 at 19:25; Status DC Lidocaine (Lidoderm) 1 patch DAILY TD Last administered on 09/28/17 08:04; Start 09/16/17 at 15:15 Levothyroxine Sodium (Synthroid) 75 mcg DAILY07 PO ; Start 09/17/17 at 07:00; Stop 09/17/17 at 07:00; Status DC Levothyroxine Sodium (Synthroid) 50 mcg DAILY07 PO Last administered on 06:15; Start 09/17/17 at 07:00 Vitamin D (Vitamin D3) 50,000 unit WEEKLY PO Last administered on 09/24/17 09 :01; Start 09/17/17 at 18:00 Al Hydroxide/Mg Hydroxide (Mylanta Plus Xs) 30 ml PRN AFTMEALHC PRN PO DYSPEPSIA Last administered on 09/22/17 07:32; Start 09/18/17 at 18:00 Magnesium Hydroxide (Milk Of Magnesia) 2,400 mg PRN DAILY PRN PO CONSTIPATION Last administered on 09/27/17 17:05; Start 09/18/17 at 19:45 Clozapine (Clozaril) 50 mg HS PO Last administered on 09/28/17 19:36; Start 09/24/17 at 21:00 Risperidone (RisperDAL) 2.5 mg BID PO Last administered on 09/25/17 09:05; Start 09/24/17 at 21:00; Stop 09/25/17 at 18:32; Status DC Trazodone HCl (Desyrel) 100 mg QHS PO Last administered on 09/28/17 19:36; Start 09/24/17 at 21:00 Trazodone HCl (Desyrel) 100 mg PRN QHS PRN PO INSOMNIA Last administered on 23:18; Start 09/24/17 at 19:30 Risperidone (RisperDAL) 3 mg BID PO Last administered on 09/28/17 19:36; Start 09/25/17 at 21:00 Nicotine Polacrilex (Nicorette Gum) 2 mg PRN Q1HR PRN BC SMOKING CESSATION Last administered on 09/27/17 18:39; Start 09/27/17 at 14:15 Active Scripts Active Reported Zantac (Ranitidine Hcl) 150 Mg Tablet 150 Mg PO BID Vitamin D3 (Cholecalciferol (Vitamin D3)) 1,000 Unit Tablet 2,000 Unit PO DAILY Tylenol (Acetaminophen) 325 Mg Tablet 650 Mg PO PRN Q4HRS PRN Senna (Sennosides) 8.6 Mg Tablet 8.6 Mg PO BID Saphris (Asenapine Maleate) 5 Mg Tab.subl 5 Mg SL BID Invega (Paliperidone) 6 Mg Tab.er.24 6 Mg PO DAILY Miralax (Polyethylene Glycol 3350) 119 Gm Powder 17 Gm PO QPM [place] Carbonate 300 Mg Capsule 300 Mg PO BID Levothyroxine Sodium 75 Mcg Tablet 75 Mcg PO DAILY07 Haloperidol 10 Mg Tablet 10 Mg PO BID Mag-Tussin (Guaifenesin) 100 Mg/5 Ml Liquid 100 Mg PO PRN Q4HRS PRN Gabapentin 600 Mg Tablet 600 Mg PO QHS [place] 3 1,000 Mg Softgel ([place] Fatty Acids/Fish Oil) 1 Each Capsule 1,000 Mg PO BID Fenofibrate (Fenofibrate Nanocrystallized) 48 Mg Tablet 48 Mg PO QHS Aricept (Donepezil Hcl) 5 Mg Tablet 5 Mg PO DAILY Depakote (Divalproex Sodium) 500 Mg Tablet.dr 1,000 Mg PO QHS Depakote (Divalproex Sodium) 250 Mg Tablet.dr 250 Mg PO DAILY Depo-Provera (Medroxyprogesterone Acetate) 150 Mg/1 Ml Disp.syrin 150 Mg IM [id number] Cetirizine Hcl 10 Mg Tablet 10 Mg PO DAILY Benztropine Mesylate 1 Mg Tablet 1 Mg PO BID Ventolin Hfa Inhaler (Albuterol Sulfate) 18 Gm Hfa.aer.ad 1 Puff IH PRN Q6HRS PRN Tramadol Hcl (Tramadol HCl) 50 Mg Tablet 50 Mg PO Q6HRS Diagnosis: Problems: (1) Anxiety disorder (2) Bipolar affective, mixed, sev w/ psych (3) Schizoaffective disorder, chronic condition with acute exacerbation JEREMIAS FOSTER MD Sep 28, 2017 20:45
[2017-09-28] MEDS: traZODone 100 MG TABLET. PO PRN (23:35)
--- NOTE | 2017-09-29 03:41 | PN ---
DATE: 09/27/2017 Covers of elements not covered in my initial note of 09/27/2017. SUBJECTIVE: Met with the patient evening of 09/27/2017. Per nursing report, the patient remains manipulative somewhat demandingly, labile in her mood, isolative and I met with her in her room where she was sitting, writing in very small letters one page after the next, which she does relate to it as an autobiography. I could really not discern much of what she was writing given the cramped writing. REVIEW OF SYSTEMS: No CV, , pulmonary, eye, ENT system symptoms on review. MENTAL STATUS EXAM: Reasonably oriented. Speech is coherent, has some latency. Abstraction fair, computation impaired, language function intact, attention span short. Mood and affect remain somewhat withdrawn. LABORATORY DATA: Reviewed. No active suicidal or homicidal ideation. IMPRESSION: Unchanged from initial note. PLAN: Continue current psychotropics mentioned in my initial note. Follow labs level, CBC and ANC consequent to the Clozaril increase it. Valproic acid level therapeutic at 65. Maintain Cogentin, Depakote, Aricept, Haldol, lithium, Risperdal, trazodone, and the Clozaril. We will increase Clozaril then gradually decrease the Haldol and Risperdal. Review drug interactions. Risk/benefit ratio favors no further change. MAN Leo FOSTER MD DR: REX/maite JOB#: [id number] / [id number]
[2017-09-29] MEDS: traMADol 50 MG TABLET PO SCH ×4 (05:56→23:06)
[2017-09-29] MEDS: LEVOTHYROXINE 50 MCG TABLET PO SCH (05:56)
[2017-09-29] MEDS: BENZTROPINE MESYLATE 1 MG TABLET PO SCH ×3 (08:38→19:26)
[2017-09-29] MEDS: SENNOSIDES 8.6 MG TABLET PO SCH ×3 (08:38→19:25)
[2017-09-29] MEDS: LITHIUM CARBONATE 150 MG CAPSULE. PO SCH ×3 (08:38→19:26)
[2017-09-29] MEDS: CETIRIZINE HCL 10 MG TABLET PO SCH ×2 (08:38→09:00)
[2017-09-29] MEDS: LIDOCAINE (700MG/PATCH) PATCH. TD SCH ×2 (08:38→09:00)
[2017-09-29] MEDS: risperiDONE 1 MG TABLET. PO SCH ×2 (08:38→19:37)
[2017-09-29] MEDS: FAMOTIDINE 20 MG TABLET PO SCH ×3 (08:38→19:26)
[2017-09-29] MEDS: HALOPERIDOL 5 MG TABLET PO SCH ×3 (08:38→19:26)
[2017-09-29] MEDS: DIVALPROEX SODIUM 250 MG TABLET.DR. PO SCH ×3 (08:38→19:26)
[2017-09-29] MEDS: DONEPEZIL HCL 5 MG TABLET. PO SCH ×2 (08:39→09:00)
[2017-09-29] MEDS: CHOLECALCIFEROL (VITAMIN D3) 1,000 UNIT TABLET PO SCH ×2 (08:39→09:00)
[2017-09-29] MEDS: NICOTINE POLACRILEX GUM 2 MG GUM. BC PRN (13:00)
[2017-09-29 16:04] VITALS: BP 111/78
[2017-09-29] MEDS: POLYETHYLENE GLYCOL 3350 17 GM PACKET. PO SCH (18:00)
[2017-09-29] MEDS: GABAPENTIN 300 MG CAPSULE. PO SCH (19:25)
[2017-09-29] MEDS: FENOFIBRATE NANOCRYSTALLIZED 48 MG TABLET PO SCH (19:25)
[2017-09-29] MEDS: traZODone 100 MG TABLET. PO SCH (19:25)
[2017-09-29] MEDS: cloZAPine 25 MG TABLET PO SCH (19:26)
[2017-09-29] MEDS: traZODone 100 MG TABLET. PO PRN (22:04)
--- NOTE | 2017-09-29 23:39 | PDOC ---
Exam Abe Demential Exam: Abe Note: Please also refer to the separate dictated note~for this date of service dictated separately.~Patient seen individually. Discussed the patient with Nursing staff reviewed the chart.~Reviewed interim history and current functioning. Reviewed vital signs,~Labs/ Radiology~and current medications noted below. Continue current treatment with the changes noted in the dictated addendum note Assessment: Vital Signs: Vital Signs Date Time Temp Pulse Resp B/P (MAP) Pulse Ox O2 Delivery O2 Flow Rate FiO2 09/29/17 23:06 96 09/29/17 19:49 20 Room Air 09/29/17 16:04 97.1 79 111/78 (89) I&O Intake and Output 09/30/17 07:00 Intake Total 1440 ml Balance 1440 ml Intake Oral 1440 ml Current Medications: Meds: Current Medications Nicotine (Nicoderm Cq 14mg) 1 patch DAILY TD Last administered on 09/27/17 07: 55; Start 09/16/17 at 09:00; Stop 09/27/17 at 14:12; Status DC Benztropine Mesylate (Cogentin) 1 mg BID PO Last administered on 09/29/17 19: 26; Start 09/15/17 at 09:00 Divalproex Sodium (Depakote) 250 mg DAILY PO Last administered on 09/29/17 09: 00; Start 09/15/17 at 09:00 Donepezil HCl (Aricept) 5 mg DAILY PO Last administered on 09/29/17 09:00; Start 09/15/17 at 09:00 Non-Formulary Medication 5 mg BID SL ; Start 09/15/17 at 09:00; Stop 09/15/17 at 09:00; Status DC Divalproex Sodium (Depakote) 1,000 mg QHS PO Last administered on 09/29/17 19: 26; Start 09/15/17 at 21:00 Haloperidol (Haldol) 10 mg BID PO Last administered on 09/29/17 19:26; Start 09/15/17 at 09:00 [place] Carbonate 300 mg BID PO Last administered on 09/29/17 19:26; Start at 09:00 Risperidone (RisperDAL) 3 mg BID PO Last administered on 09/24/17 09:00; Start 09/15/17 at 09:00; Stop 09/24/17 at 19:25; Status DC Nicotine (Nicoderm Cq 14mg) 1 patch 1X ONCE TD Last administered on 04:38; Start 09/15/17 at 04:30; Stop 09/15/17 at 04:35; Status DC Olanzapine (ZyPREXA ZYDIS) 2.5 mg PRN Q2HR PRN PO PSYCHOSIS; Start 09/15/17 at 05:15 Acetaminophen (Tylenol) 650 mg PRN Q4HRS PRN PO PAIN / TEMP Last administered on 09/21/17 21:28; Start 09/15/17 at 07:45 Albuterol Sulfate (Ventolin Hfa) 1 puff PRN Q6HRS PRN IH FOR ASTHMA; Start at 07:45; Stop 09/15/17 at 08:06; Status DC Cetirizine HCl (ZyrTEC) 10 mg DAILY PO Last administered on 09/29/17 09:00; Start 09/15/17 at 09:00 Vitamin D (Vitamin D3) 2,000 unit DAILY PO Last administered on 09/29/17 09:00 ; Start 09/15/17 at 09:00 Fenofibrate (Tricor) 48 mg QHS PO Last administered on 09/29/17 19:25; Start 09/15/17 at 21:00 Guaifenesin (Robitussin) 100 mg PRN Q4HRS PRN PO COUGH; Start 09/15/17 at 07: 45 Levothyroxine Sodium (Synthroid) 75 mcg DAILY07 PO Last administered on 05:21; Start 09/15/17 at 08:00; Stop 09/16/17 at 15:10; Status DC Polyethylene Glycol (miraLAX) 17 gm QPM PO Last administered on 09/29/17 18:00 ; Start 09/15/17 at 18:00 Sennosides (Senna) 8.6 mg BID PO Last administered on 09/29/17 19:25; Start 09/15/17 at 09:00 Tramadol HCl (Ultram) 50 mg Q6HRS PO Last administered on 09/29/17 23:06; Start 09/15/17 at 12:00 Gabapentin (Neurontin) 600 mg QHS PO Last administered on 09/29/17 19:25; Start 09/15/17 at 21:00 Non-Formulary Medication 150 mg [id number] IM ; Start 09/15/17 at 07:45; Stop at 07:53; Status DC Fish Oil (Fish Oil) 1,000 mg BID PO Last administered on 09/19/17 09:00; Start 09/15/17 at 09:00; Stop 09/20/17 at 14:50; Status DC Famotidine (Pepcid) 20 mg BID PO Last administered on 09/29/17 19:26; Start 09/15/17 at 09:00 Albuterol Sulfate (Ventolin) 2.5 mg PRN Q6HRS PRN NEB SHORTNESS OF BREATH; Start 09/15/17 at 08:00 Clozapine (Clozaril) 25 mg HS PO Last administered on 09/23/17 19:26; Start 09/15/17 at 21:00; Stop 09/24/17 at 19:25; Status DC Lidocaine (Lidoderm) 1 patch DAILY TD Last administered on 09/29/17 09:00; Start 09/16/17 at 15:15 Levothyroxine Sodium (Synthroid) 75 mcg DAILY07 PO ; Start 09/17/17 at 07:00; Stop 09/17/17 at 07:00; Status DC Levothyroxine Sodium (Synthroid) 50 mcg DAILY07 PO Last administered on 05:56; Start 09/17/17 at 07:00 Vitamin D (Vitamin D3) 50,000 unit WEEKLY PO Last administered on 09/24/17 09 :01; Start 09/17/17 at 18:00 Al Hydroxide/Mg Hydroxide (Mylanta Plus Xs) 30 ml PRN AFTMEALHC PRN PO DYSPEPSIA Last administered on 09/22/17 07:32; Start 09/18/17 at 18:00 Magnesium Hydroxide (Milk Of Magnesia) 2,400 mg PRN DAILY PRN PO CONSTIPATION Last administered on 09/27/17 17:05; Start 09/18/17 at 19:45 Clozapine (Clozaril) 50 mg HS PO Last administered on 09/29/17 19:26; Start 09/24/17 at 21:00 Risperidone (RisperDAL) 2.5 mg BID PO Last administered on 09/25/17 09:05; Start 09/24/17 at 21:00; Stop 09/25/17 at 18:32; Status DC Trazodone HCl (Desyrel) 100 mg QHS PO Last administered on 09/29/17 19:25; Start 09/24/17 at 21:00 Trazodone HCl (Desyrel) 100 mg PRN QHS PRN PO INSOMNIA Last administered on 22:04; Start 09/24/17 at 19:30 Risperidone (RisperDAL) 3 mg BID PO Last administered on 09/29/17 08:38; Start 09/25/17 at 21:00; Stop 09/29/17 at 09:11; Status DC Nicotine Polacrilex (Nicorette Gum) 2 mg PRN Q1HR PRN BC SMOKING CESSATION Last administered on 09/29/17 13:00; Start 09/27/17 at 14:15 Risperidone (RisperDAL) 2.5 mg BID PO Last administered on 09/29/17 19:37; Start 09/29/17 at 21:00 Active Scripts Active Reported Zantac (Ranitidine Hcl) 150 Mg Tablet 150 Mg PO BID Vitamin D3 (Cholecalciferol (Vitamin D3)) 1,000 Unit Tablet 2,000 Unit PO DAILY Tylenol (Acetaminophen) 325 Mg Tablet 650 Mg PO PRN Q4HRS PRN Senna (Sennosides) 8.6 Mg Tablet 8.6 Mg PO BID Saphris (Asenapine Maleate) 5 Mg Tab.subl 5 Mg SL BID Invega (Paliperidone) 6 Mg Tab.er.24 6 Mg PO DAILY Miralax (Polyethylene Glycol 3350) 119 Gm Powder 17 Gm PO QPM [place] Carbonate 300 Mg Capsule 300 Mg PO BID Levothyroxine Sodium 75 Mcg Tablet 75 Mcg PO DAILY07 Haloperidol 10 Mg Tablet 10 Mg PO BID Mag-Tussin (Guaifenesin) 100 Mg/5 Ml Liquid 100 Mg PO PRN Q4HRS PRN Gabapentin 600 Mg Tablet 600 Mg PO QHS [place] 3 1,000 Mg Softgel ([place]-3 Fatty Acids/Fish Oil) 1 Each Capsule 1,000 Mg PO BID Fenofibrate (Fenofibrate Nanocrystallized) 48 Mg Tablet 48 Mg PO QHS Aricept (Donepezil Hcl) 5 Mg Tablet 5 Mg PO DAILY Depakote (Divalproex Sodium) 500 Mg Tablet.dr 1,000 Mg PO QHS Depakote (Divalproex Sodium) 250 Mg Tablet.dr 250 Mg PO DAILY Depo-Provera (Medroxyprogesterone Acetate) 150 Mg/1 Ml Disp.syrin 150 Mg IM [id number] Cetirizine Hcl 10 Mg Tablet 10 Mg PO DAILY Benztropine Mesylate 1 Mg Tablet 1 Mg PO BID Ventolin Hfa Inhaler (Albuterol Sulfate) 18 Gm Hfa.aer.ad 1 Puff IH PRN Q6HRS PRN Tramadol Hcl (Tramadol HCl) 50 Mg Tablet 50 Mg PO Q6HRS Diagnosis: Problems: (1) Anxiety disorder (2) Bipolar affective, mixed, sev w/ psych (3) Schizoaffective disorder, chronic condition with acute exacerbation JEREMIAS FOSTER MD Sep 29, 2017 23:39
[2017-09-30] MEDS: traMADol 50 MG TABLET PO SCH ×4 (05:59→23:06)
[2017-09-30] MEDS: LEVOTHYROXINE 50 MCG TABLET PO SCH (06:00)
[2017-09-30 06:06] VITALS: BP 101/68
[2017-09-30] MEDS: LIDOCAINE (700MG/PATCH) PATCH. TD SCH (06:22)
[2017-09-30] MEDS: DONEPEZIL HCL 5 MG TABLET. PO SCH (06:22)
[2017-09-30] MEDS: risperiDONE 1 MG TABLET. PO SCH ×2 (06:22→18:35)
[2017-09-30] MEDS: DIVALPROEX SODIUM 250 MG TABLET.DR. PO SCH ×2 (06:23→18:35)
[2017-09-30] MEDS: LITHIUM CARBONATE 150 MG CAPSULE. PO SCH ×2 (06:23→18:34)
[2017-09-30] MEDS: FAMOTIDINE 20 MG TABLET PO SCH ×2 (06:23→18:34)
[2017-09-30] MEDS: CETIRIZINE HCL 10 MG TABLET PO SCH (06:23)
[2017-09-30] MEDS: BENZTROPINE MESYLATE 1 MG TABLET PO SCH ×2 (06:23→18:33)
[2017-09-30] MEDS: SENNOSIDES 8.6 MG TABLET PO SCH ×2 (06:23→18:33)
[2017-09-30] MEDS: HALOPERIDOL 5 MG TABLET PO SCH ×3 (06:23→21:00)
[2017-09-30] MEDS: CHOLECALCIFEROL (VITAMIN D3) 1,000 UNIT TABLET PO SCH (06:23)
--- NOTE | 2017-09-30 17:54 | PDOC ---
Exam Abe Demential Exam: Abe Note: Please also refer to the separate dictated note~for this date of service dictated separately.~Patient seen individually. Discussed the patient with Nursing staff reviewed the chart.~Reviewed interim history and current functioning. Reviewed vital signs,~Labs/ Radiology~and current medications noted below. Continue current treatment with the changes noted in the dictated addendum note Assessment: Vital Signs: Vital Signs Date Time Temp Pulse Resp B/P (MAP) Pulse Ox O2 Delivery O2 Flow Rate FiO2 09/30/17 16:27 97.7 81 20 95 09/30/17 06:06 101/68 (79) 09/29/17 19:49 Room Air I&O Intake and Output 10/01/17 07:00 Intake Total 1200 ml Balance 1200 ml Intake Oral 1200 ml Current Medications: Meds: Current Medications Nicotine (Nicoderm Cq 14mg) 1 patch DAILY TD Last administered on 09/27/17 07: 55; Start 09/16/17 at 09:00; Stop 09/27/17 at 14:12; Status DC Benztropine Mesylate (Cogentin) 1 mg BID PO Last administered on 09/30/17 06: 23; Start 09/15/17 at 09:00 Divalproex Sodium (Depakote) 250 mg DAILY PO Last administered on 09/30/17 06: 23; Start 09/15/17 at 09:00 Donepezil HCl (Aricept) 5 mg DAILY PO Last administered on 09/30/17 06:22; Start 09/15/17 at 09:00 Non-Formulary Medication 5 mg BID SL ; Start 09/15/17 at 09:00; Stop 09/15/17 at 09:00; Status DC Divalproex Sodium (Depakote) 1,000 mg QHS PO Last administered on 09/29/17 19: 26; Start 09/15/17 at 21:00 Haloperidol (Haldol) 10 mg BID PO Last administered on 09/30/17 06:23; Start 09/15/17 at 09:00 [place] Carbonate 300 mg BID PO Last administered on 09/30/17 06:23; Start at 09:00 Risperidone (RisperDAL) 3 mg BID PO Last administered on 09/24/17 09:00; Start 09/15/17 at 09:00; Stop 09/24/17 at 19:25; Status DC Nicotine (Nicoderm Cq 14mg) 1 patch 1X ONCE TD Last administered on 04:38; Start 09/15/17 at 04:30; Stop 09/15/17 at 04:35; Status DC Olanzapine (ZyPREXA ZYDIS) 2.5 mg PRN Q2HR PRN PO PSYCHOSIS; Start 09/15/17 at 05:15 Acetaminophen (Tylenol) 650 mg PRN Q4HRS PRN PO PAIN / TEMP Last administered on 09/21/17 21:28; Start 09/15/17 at 07:45 Albuterol Sulfate (Ventolin Hfa) 1 puff PRN Q6HRS PRN IH FOR ASTHMA; Start at 07:45; Stop 09/15/17 at 08:06; Status DC Cetirizine HCl (ZyrTEC) 10 mg DAILY PO Last administered on 09/30/17 06:23; Start 09/15/17 at 09:00 Vitamin D (Vitamin D3) 2,000 unit DAILY PO Last administered on 09/30/17 06:23 ; Start 09/15/17 at 09:00 Fenofibrate (Tricor) 48 mg QHS PO Last administered on 09/29/17 19:25; Start 09/15/17 at 21:00 Guaifenesin (Robitussin) 100 mg PRN Q4HRS PRN PO COUGH; Start 09/15/17 at 07: 45 Levothyroxine Sodium (Synthroid) 75 mcg DAILY07 PO Last administered on 05:21; Start 09/15/17 at 08:00; Stop 09/16/17 at 15:10; Status DC Polyethylene Glycol (miraLAX) 17 gm QPM PO Last administered on 09/29/17 18:00 ; Start 09/15/17 at 18:00 Sennosides (Senna) 8.6 mg BID PO Last administered on 09/30/17 06:23; Start 09/15/17 at 09:00 Tramadol HCl (Ultram) 50 mg Q6HRS PO Last administered on 09/30/17 09:41; Start 09/15/17 at 12:00 Gabapentin (Neurontin) 600 mg QHS PO Last administered on 09/29/17 19:25; Start 09/15/17 at 21:00 Non-Formulary Medication 150 mg [id number] IM ; Start 09/15/17 at 07:45; Stop at 07:53; Status DC Fish Oil (Fish Oil) 1,000 mg BID PO Last administered on 09/19/17 09:00; Start 09/15/17 at 09:00; Stop 09/20/17 at 14:50; Status DC Famotidine (Pepcid) 20 mg BID PO Last administered on 09/30/17 06:23; Start 09/15/17 at 09:00 Albuterol Sulfate (Ventolin) 2.5 mg PRN Q6HRS PRN NEB SHORTNESS OF BREATH; Start 09/15/17 at 08:00 Clozapine (Clozaril) 25 mg HS PO Last administered on 09/23/17 19:26; Start 09/15/17 at 21:00; Stop 09/24/17 at 19:25; Status DC Lidocaine (Lidoderm) 1 patch DAILY TD Last administered on 09/30/17 06:22; Start 09/16/17 at 15:15 Levothyroxine Sodium (Synthroid) 75 mcg DAILY07 PO ; Start 09/17/17 at 07:00; Stop 09/17/17 at 07:00; Status DC Levothyroxine Sodium (Synthroid) 50 mcg DAILY07 PO Last administered on 06:00; Start 09/17/17 at 07:00 Vitamin D (Vitamin D3) 50,000 unit WEEKLY PO Last administered on 09/24/17 09 :01; Start 09/17/17 at 18:00 Al Hydroxide/Mg Hydroxide (Mylanta Plus Xs) 30 ml PRN AFTMEALHC PRN PO DYSPEPSIA Last administered on 09/22/17 07:32; Start 09/18/17 at 18:00 Magnesium Hydroxide (Milk Of Magnesia) 2,400 mg PRN DAILY PRN PO CONSTIPATION Last administered on 09/27/17 17:05; Start 09/18/17 at 19:45 Clozapine (Clozaril) 50 mg HS PO Last administered on 09/29/17 19:26; Start 09/24/17 at 21:00 Risperidone (RisperDAL) 2.5 mg BID PO Last administered on 09/25/17 09:05; Start 09/24/17 at 21:00; Stop 09/25/17 at 18:32; Status DC Trazodone HCl (Desyrel) 100 mg QHS PO Last administered on 09/29/17 19:25; Start 09/24/17 at 21:00 Trazodone HCl (Desyrel) 100 mg PRN QHS PRN PO INSOMNIA Last administered on 22:04; Start 09/24/17 at 19:30 Risperidone (RisperDAL) 3 mg BID PO Last administered on 09/29/17 08:38; Start 09/25/17 at 21:00; Stop 09/29/17 at 09:11; Status DC Nicotine Polacrilex (Nicorette Gum) 2 mg PRN Q1HR PRN BC SMOKING CESSATION Last administered on 09/29/17 13:00; Start 09/27/17 at 14:15 Risperidone (RisperDAL) 2.5 mg BID PO Last administered on 09/30/17 06:22; Start 09/29/17 at 21:00 Active Scripts Active Reported Zantac (Ranitidine Hcl) 150 Mg Tablet 150 Mg PO BID Vitamin D3 (Cholecalciferol (Vitamin D3)) 1,000 Unit Tablet 2,000 Unit PO DAILY Tylenol (Acetaminophen) 325 Mg Tablet 650 Mg PO PRN Q4HRS PRN Senna (Sennosides) 8.6 Mg Tablet 8.6 Mg PO BID Saphris (Asenapine Maleate) 5 Mg Tab.subl 5 Mg SL BID Invega (Paliperidone) 6 Mg Tab.er.24 6 Mg PO DAILY Miralax (Polyethylene Glycol 3350) 119 Gm Powder 17 Gm PO QPM [place] Carbonate 300 Mg Capsule 300 Mg PO BID Levothyroxine Sodium 75 Mcg Tablet 75 Mcg PO DAILY07 Haloperidol 10 Mg Tablet 10 Mg PO BID Mag-Tussin (Guaifenesin) 100 Mg/5 Ml Liquid 100 Mg PO PRN Q4HRS PRN Gabapentin 600 Mg Tablet 600 Mg PO QHS [place] 3 1,000 Mg Softgel ([place]-3 Fatty Acids/Fish Oil) 1 Each Capsule 1,000 Mg PO BID Fenofibrate (Fenofibrate Nanocrystallized) 48 Mg Tablet 48 Mg PO QHS Aricept (Donepezil Hcl) 5 Mg Tablet 5 Mg PO DAILY Depakote (Divalproex Sodium) 500 Mg Tablet.dr 1,000 Mg PO QHS Depakote (Divalproex Sodium) 250 Mg Tablet.dr 250 Mg PO DAILY Depo-Provera (Medroxyprogesterone Acetate) 150 Mg/1 Ml Disp.syrin 150 Mg IM [id number] Cetirizine Hcl 10 Mg Tablet 10 Mg PO DAILY Benztropine Mesylate 1 Mg Tablet 1 Mg PO BID Ventolin Hfa Inhaler (Albuterol Sulfate) 18 Gm Hfa.aer.ad 1 Puff IH PRN Q6HRS PRN Tramadol Hcl (Tramadol HCl) 50 Mg Tablet 50 Mg PO Q6HRS Diagnosis: Problems: (1) Schizoaffective disorder, chronic condition with acute exacerbation (2) Bipolar affective, mixed, sev w/ psych (3) Anxiety disorder JEREMIAS FOSTER MD Sep 30, 2017 17:54
[2017-09-30] MEDS: POLYETHYLENE GLYCOL 3350 17 GM PACKET. PO SCH (18:33)
[2017-09-30] MEDS: traZODone 100 MG TABLET. PO SCH (18:34)
[2017-09-30] MEDS: cloZAPine 25 MG TABLET PO SCH (18:35)
[2017-09-30] MEDS: GABAPENTIN 300 MG CAPSULE. PO SCH (18:35)
[2017-09-30] MEDS: FENOFIBRATE NANOCRYSTALLIZED 48 MG TABLET PO SCH (18:36)
--- NOTE | 2017-09-30 19:53 | PDOC ---
Exam Abe Demential Exam: Abe Note: Please also refer to the separate dictated note~for this date of service dictated separately.~Patient seen individually. Discussed the patient with Nursing staff reviewed the chart.~Reviewed interim history and current functioning. Reviewed vital signs,~Labs/ Radiology~and current medications noted below. Continue current treatment with the changes noted in the dictated addendum note Assessment: Vital Signs: Vital Signs Date Time Temp Pulse Resp B/P (MAP) Pulse Ox O2 Delivery O2 Flow Rate FiO2 09/30/17 16:27 97.7 81 20 95 09/30/17 06:06 101/68 (79) 09/29/17 19:49 Room Air I&O Intake and Output 10/01/17 07:00 Intake Total 1800 ml Balance 1800 ml Intake Oral 1800 ml Current Medications: Meds: Current Medications Nicotine (Nicoderm Cq 14mg) 1 patch DAILY TD Last administered on 09/27/17 07: 55; Start 09/16/17 at 09:00; Stop 09/27/17 at 14:12; Status DC Benztropine Mesylate (Cogentin) 1 mg BID PO Last administered on 09/30/17 18: 33; Start 09/15/17 at 09:00 Divalproex Sodium (Depakote) 250 mg DAILY PO Last administered on 09/30/17 06: 23; Start 09/15/17 at 09:00 Donepezil HCl (Aricept) 5 mg DAILY PO Last administered on 09/30/17 06:22; Start 09/15/17 at 09:00 Non-Formulary Medication 5 mg BID SL ; Start 09/15/17 at 09:00; Stop 09/15/17 at 09:00; Status DC Divalproex Sodium (Depakote) 1,000 mg QHS PO Last administered on 09/30/17 18: 35; Start 09/15/17 at 21:00 Haloperidol (Haldol) 10 mg BID PO Last administered on 09/30/17 18:35; Start 09/15/17 at 09:00; Stop 09/30/17 at 19:06; Status DC [place] Carbonate 300 mg BID PO Last administered on 09/30/17 18:34; Start at 09:00 Risperidone (RisperDAL) 3 mg BID PO Last administered on 09/24/17 09:00; Start 09/15/17 at 09:00; Stop 09/24/17 at 19:25; Status DC Nicotine (Nicoderm Cq 14mg) 1 patch 1X ONCE TD Last administered on 04:38; Start 09/15/17 at 04:30; Stop 09/15/17 at 04:35; Status DC Olanzapine (ZyPREXA ZYDIS) 2.5 mg PRN Q2HR PRN PO PSYCHOSIS; Start 09/15/17 at 05:15 Acetaminophen (Tylenol) 650 mg PRN Q4HRS PRN PO PAIN / TEMP Last administered on 09/21/17 21:28; Start 09/15/17 at 07:45 Albuterol Sulfate (Ventolin Hfa) 1 puff PRN Q6HRS PRN IH FOR ASTHMA; Start at 07:45; Stop 09/15/17 at 08:06; Status DC Cetirizine HCl (ZyrTEC) 10 mg DAILY PO Last administered on 09/30/17 06:23; Start 09/15/17 at 09:00 Vitamin D (Vitamin D3) 2,000 unit DAILY PO Last administered on 09/30/17 06:23 ; Start 09/15/17 at 09:00 Fenofibrate (Tricor) 48 mg QHS PO Last administered on 09/30/17 18:36; Start 09/15/17 at 21:00 Guaifenesin (Robitussin) 100 mg PRN Q4HRS PRN PO COUGH; Start 09/15/17 at 07: 45 Levothyroxine Sodium (Synthroid) 75 mcg DAILY07 PO Last administered on 05:21; Start 09/15/17 at 08:00; Stop 09/16/17 at 15:10; Status DC Polyethylene Glycol (miraLAX) 17 gm QPM PO Last administered on 09/30/17 18:33 ; Start 09/15/17 at 18:00 Sennosides (Senna) 8.6 mg BID PO Last administered on 09/30/17 18:33; Start 09/15/17 at 09:00 Tramadol HCl (Ultram) 50 mg Q6HRS PO Last administered on 09/30/17 09:41; Start 09/15/17 at 12:00 Gabapentin (Neurontin) 600 mg QHS PO Last administered on 09/30/17 18:35; Start 09/15/17 at 21:00 Non-Formulary Medication 150 mg [id number] IM ; Start 09/15/17 at 07:45; Stop at 07:53; Status DC Fish Oil (Fish Oil) 1,000 mg BID PO Last administered on 09/19/17 09:00; Start 09/15/17 at 09:00; Stop 09/20/17 at 14:50; Status DC Famotidine (Pepcid) 20 mg BID PO Last administered on 09/30/17 18:34; Start 09/15/17 at 09:00 Albuterol Sulfate (Ventolin) 2.5 mg PRN Q6HRS PRN NEB SHORTNESS OF BREATH; Start 09/15/17 at 08:00 Clozapine (Clozaril) 25 mg HS PO Last administered on 09/23/17 19:26; Start 09/15/17 at 21:00; Stop 09/24/17 at 19:25; Status DC Lidocaine (Lidoderm) 1 patch DAILY TD Last administered on 09/30/17 06:22; Start 09/16/17 at 15:15 Levothyroxine Sodium (Synthroid) 75 mcg DAILY07 PO ; Start 09/17/17 at 07:00; Stop 09/17/17 at 07:00; Status DC Levothyroxine Sodium (Synthroid) 50 mcg DAILY07 PO Last administered on 06:00; Start 09/17/17 at 07:00 Vitamin D (Vitamin D3) 50,000 unit WEEKLY PO Last administered on 09/24/17 09 :01; Start 09/17/17 at 18:00 Al Hydroxide/Mg Hydroxide (Mylanta Plus Xs) 30 ml PRN AFTMEALHC PRN PO DYSPEPSIA Last administered on 09/22/17 07:32; Start 09/18/17 at 18:00 Magnesium Hydroxide (Milk Of Magnesia) 2,400 mg PRN DAILY PRN PO CONSTIPATION Last administered on 09/27/17 17:05; Start 09/18/17 at 19:45 Clozapine (Clozaril) 50 mg HS PO Last administered on 09/30/17 18:35; Start 09/24/17 at 21:00 Risperidone (RisperDAL) 2.5 mg BID PO Last administered on 09/25/17 09:05; Start 09/24/17 at 21:00; Stop 09/25/17 at 18:32; Status DC Trazodone HCl (Desyrel) 100 mg QHS PO Last administered on 09/30/17 18:34; Start 09/24/17 at 21:00 Trazodone HCl (Desyrel) 100 mg PRN QHS PRN PO INSOMNIA Last administered on 22:04; Start 09/24/17 at 19:30 Risperidone (RisperDAL) 3 mg BID PO Last administered on 09/29/17 08:38; Start 09/25/17 at 21:00; Stop 09/29/17 at 09:11; Status DC Nicotine Polacrilex (Nicorette Gum) 2 mg PRN Q1HR PRN BC SMOKING CESSATION Last administered on 09/29/17 13:00; Start 09/27/17 at 14:15 Risperidone (RisperDAL) 2.5 mg BID PO Last administered on 09/30/17 18:35; Start 09/29/17 at 21:00 Haloperidol (Haldol) 7.5 mg BID PO ; Start 09/30/17 at 21:00 Active Scripts Active Reported Zantac (Ranitidine Hcl) 150 Mg Tablet 150 Mg PO BID Vitamin D3 (Cholecalciferol (Vitamin D3)) 1,000 Unit Tablet 2,000 Unit PO DAILY Tylenol (Acetaminophen) 325 Mg Tablet 650 Mg PO PRN Q4HRS PRN Senna (Sennosides) 8.6 Mg Tablet 8.6 Mg PO BID Saphris (Asenapine Maleate) 5 Mg Tab.subl 5 Mg SL BID Invega (Paliperidone) 6 Mg Tab.er.24 6 Mg PO DAILY Miralax (Polyethylene Glycol 3350) 119 Gm Powder 17 Gm PO QPM [place] Carbonate 300 Mg Capsule 300 Mg PO BID Levothyroxine Sodium 75 Mcg Tablet 75 Mcg PO DAILY07 Haloperidol 10 Mg Tablet 10 Mg PO BID Mag-Tussin (Guaifenesin) 100 Mg/5 Ml Liquid 100 Mg PO PRN Q4HRS PRN Gabapentin 600 Mg Tablet 600 Mg PO QHS [place] 3 1,000 Mg Softgel ([place]-3 Fatty Acids/Fish Oil) 1 Each Capsule 1,000 Mg PO BID Fenofibrate (Fenofibrate Nanocrystallized) 48 Mg Tablet 48 Mg PO QHS Aricept (Donepezil Hcl) 5 Mg Tablet 5 Mg PO DAILY Depakote (Divalproex Sodium) 500 Mg Tablet.dr 1,000 Mg PO QHS Depakote (Divalproex Sodium) 250 Mg Tablet.dr 250 Mg PO DAILY Depo-Provera (Medroxyprogesterone Acetate) 150 Mg/1 Ml Disp.syrin 150 Mg IM [id number] Cetirizine Hcl 10 Mg Tablet 10 Mg PO DAILY Benztropine Mesylate 1 Mg Tablet 1 Mg PO BID Ventolin Hfa Inhaler (Albuterol Sulfate) 18 Gm Hfa.aer.ad 1 Puff IH PRN Q6HRS PRN Tramadol Hcl (Tramadol HCl) 50 Mg Tablet 50 Mg PO Q6HRS Diagnosis: Problems: (1) Anxiety disorder (2) Bipolar affective, mixed, sev w/ psych (3) Schizoaffective disorder, chronic condition with acute exacerbation JEREMIAS FOSTER MD Sep 30, 2017 19:53
[2017-10-01] MEDS: LEVOTHYROXINE 50 MCG TABLET PO SCH (06:13)
[2017-10-01] MEDS: traMADol 50 MG TABLET PO SCH ×4 (06:13→23:05)
[2017-10-01] MEDS: NICOTINE POLACRILEX GUM 2 MG GUM. BC PRN ×2 (06:37→20:00)
[2017-10-01 07:55] LABS: BASO % 1 % (0-3); EOS # 0.5 x10^3/uL (0.0-0.7); EOS % 7 % (0-3); HEMATOCRIT 38.8 % (36.0-47.0); HEMOGLOBIN 13.1 g/dL (12.0-15.5); LYMPH # 3.1 x10^3/uL (1.0-4.8); LYMPH % 43 % (24-48); MEAN CORPUSCULAR HEMOGLOBIN 31 pg (25-35); MEAN CORPUSCULAR HGB CONC 34 g/dL (31-37); MEAN CORPUSCULAR VOLUME 91 fL (79-100); MONO # 0.7 x10^3/uL (0.0-1.1); MONO % 10 % (0-9); NEUT # 2.9 x10^3uL (1.8-7.7); NEUT % 40 % (31-73); PLATELET COUNT 239 x10^3/uL (140-400); RED BLOOD COUNT 4.29 x10^6/uL (3.50-5.40); RED CELL DISTRIBUTION WIDTH 14.2 % (11.5-14.5); WHITE BLOOD COUNT 7.3 x10^3/uL (4.0-11.0)
[2017-10-01 08:08] LABS: ALBUMIN/GLOBULIN RATIO 0.9 (1.0-1.7); POTASSIUM 3.9 mmol/L (3.5-5.1); TOTAL BILIRUBIN 0.2 mg/dL (0.2-1.0); TOTAL PROTEIN 6.2 g/dL (6.4-8.2)
[2017-10-01] MEDS: BENZTROPINE MESYLATE 1 MG TABLET PO SCH ×2 (10:30→19:59)
[2017-10-01] MEDS: risperiDONE 1 MG TABLET. PO SCH ×2 (10:30→19:59)
[2017-10-01] MEDS: HALOPERIDOL 5 MG TABLET PO SCH ×2 (10:31→19:59)
[2017-10-01] MEDS: SENNOSIDES 8.6 MG TABLET PO SCH ×2 (10:32→20:00)
[2017-10-01] MEDS: LITHIUM CARBONATE 150 MG CAPSULE. PO SCH ×2 (10:32→19:59)
[2017-10-01] MEDS: FAMOTIDINE 20 MG TABLET PO SCH ×2 (10:32→19:59)
[2017-10-01] MEDS: DIVALPROEX SODIUM 250 MG TABLET.DR. PO SCH ×2 (10:32→19:59)
[2017-10-01] MEDS: CETIRIZINE HCL 10 MG TABLET PO SCH (10:32)
[2017-10-01] MEDS: CHOLECALCIFEROL (VITAMIN D3) 50,000 UNIT CAPSULE PO SCH (10:32)
[2017-10-01] MEDS: DONEPEZIL HCL 5 MG TABLET. PO SCH (10:32)
[2017-10-01] MEDS: CHOLECALCIFEROL (VITAMIN D3) 1,000 UNIT TABLET PO SCH (10:35)
[2017-10-01] MEDS: LIDOCAINE (700MG/PATCH) PATCH. TD SCH (10:35)
--- NOTE | 2017-10-01 10:40 | PN ---
DATE: 09/28/2017 PSYCHIATRIC PROGRESS NOTE This is a late entry for date of service 09/28/2017, covers the elements not covered in my initial note of 09/28/2017. SUBJECTIVE: I met with the patient evening of 09/28/2017. The patient has been isolated, spends much time in her room where I met with her. She is writing profusely on pieces of paper and I was unable to read much of it, which she describes as her autobiography. She is hoarding things, does respond to behavioral interventions if she is met group home in her request per nursing report. She is being screened for level 2 by the [facility], demanding at times and may be accepted at [facility]. REVIEW OF SYSTEMS: No CV, , pulmonary, eye, ENT system symptoms on review. MENTAL STATUS EXAM: Oriented to herself and situation. Speech coherent, pleasant, verbal, abstraction fair, computation impaired. Previous evening, she was demanding, yelling, swearing at staff, wanting the name of the boss and telephone number, states that she was going to [facility] the hospital, "shut this place down" and nursing staff will be "out of jobs, then you would not be able to feed your children." She was adamant her brother was coming to pick her up tonight, which was the previous night. None of that is very evident during the day ____. No active suicidal or homicidal ideation. Processed the above at some length with her. LABORATORY DATA: Reviewed. IMPRESSION: Unchanged from initial note. PLAN: Continue current psychotropics mentioned in my initial note, Valproic acid level therapeutic at 65, lithium 0.6. Clozaril will be increased gradually after the next blood work on Sunday. Reviewed drug interactions, risk/benefit ratio favors no further change. MAN Leo FOSTER MD DR: REX/maite JOB#: [id number] / [id number]
--- NOTE | 2017-10-01 11:13 | PN ---
DATE: 09/29/2017 PSYCHIATRIC PROGRESS NOTE This late entry 09/29/2017 covers elements, not covered in my initial note of 09/29/2017. SUBJECTIVE: The patient has been somewhat ongoing delusional, suspicious. She is having tremors, was seen by Dr. Mendoza. She has hypergraphia, continues to write excessively, remains intermittently psychotic. I met with her in her room. REVIEW OF SYSTEMS: No CV, , pulmonary, eye, ENT system symptoms on review. MENTAL STATUS EXAM: Oriented to herself and situation. Speech is coherent, abstraction fair, computation impaired, language function intact. Mood and affect, lability persists. No suicidal or homicidal ideation. LABORATORY DATA: Reviewed. IMPRESSION: Unchanged from initial note. PLAN: Continue current psychotropics. Check absolute neutrophil count on 10/01/2017, and then reduce the Haldol. I have already reduced the Risperdal. Maintain rest unchanged including the Depakote and lithium. MAN Leo FOSTER MD DR: REX/maite JOB#: [id number] / [id number]
[2017-10-01 15:58] VITALS: BP 117/78
[2017-10-01] MEDS: POLYETHYLENE GLYCOL 3350 17 GM PACKET. PO SCH (17:46)
--- NOTE | 2017-10-01 19:40 | PDOC ---
Exam Abe Demential Exam: Abe Note: Please also refer to the separate dictated note~for this date of service dictated separately.~Patient seen individually. Discussed the patient with Nursing staff reviewed the chart.~Reviewed interim history and current functioning. Reviewed vital signs,~Labs/ Radiology~and current medications noted below. Continue current treatment with the changes noted in the dictated addendum note Assessment: Vital Signs: Vital Signs Date Time Temp Pulse Resp B/P (MAP) Pulse Ox O2 Delivery O2 Flow Rate FiO2 10/01/17 19:09 20 Room Air 10/01/17 15:58 97.7 82 117/78 (91) 95 I&O Intake and Output 10/02/17 07:00 Intake Total 1320 ml Balance 1320 ml Intake Oral 1320 ml Labs: Laboratory Tests Test 10/01/17 07:29 White Blood Count 7.3 x10^3/uL (4.0-11.0) Red Blood Count 4.29 x10^6/uL (3.50-5.40) Hemoglobin 13.1 g/dL (12.0-15.5) Hematocrit 38.8 % (36.0-47.0) Mean Corpuscular Volume 91 fL (79-100) Mean Corpuscular Hemoglobin 31 pg (25-35) Mean Corpuscular Hemoglobin Concent 34 g/dL (31-37) Red Cell Distribution Width 14.2 % (11.5-14.5) Platelet Count 239 x10^3/uL (140-400) Neutrophils (%) (Auto) 40 % (31-73) Lymphocytes (%) (Auto) 43 % (24-48) Monocytes (%) (Auto) 10 % (0-9) H Eosinophils (%) (Auto) 7 % (0-3) H Basophils (%) (Auto) 1 % (0-3) Neutrophils # (Auto) 2.9 x10^3uL (1.8-7.7) Lymphocytes # (Auto) 3.1 x10^3/uL (1.0-4.8) Monocytes # (Auto) 0.7 x10^3/uL (0.0-1.1) Eosinophils # (Auto) 0.5 x10^3/uL (0.0-0.7) Basophils # (Auto) 0.0 x10^3/uL (0.0-0.2) Sodium Level 139 mmol/L (136-145) Potassium Level 3.9 mmol/L (3.5-5.1) Chloride Level 108 mmol/L (98-107) H Carbon Dioxide Level 24 mmol/L (21-32) Anion Gap 7 (6-14) Blood Urea Nitrogen 9 mg/dL (7-20) Creatinine 1.0 mg/dL (0.6-1.0) Estimated GFR (Cockcroft-Gault) 58.0 BUN/Creatinine Ratio 9 (6-20) Glucose Level 95 mg/dL (70-99) Calcium Level 9.0 mg/dL (8.5-10.1) Total Bilirubin 0.2 mg/dL (0.2-1.0) Aspartate Amino Transferase (AST) 12 U/L (15-37) L Alanine Aminotransferase (ALT) 16 U/L (14-59) Alkaline Phosphatase 41 U/L (46-116) L Total Protein 6.2 g/dL (6.4-8.2) L Albumin 3.0 g/dL (3.4-5.0) L Albumin/Globulin Ratio 0.9 (1.0-1.7) L Current Medications: Meds: Current Medications Nicotine (Nicoderm Cq 14mg) 1 patch DAILY TD Last administered on 09/27/17 07: 55; Start 09/16/17 at 09:00; Stop 09/27/17 at 14:12; Status DC Benztropine Mesylate (Cogentin) 1 mg BID PO Last administered on 10/01/17 10: 30; Start 09/15/17 at 09:00 Divalproex Sodium (Depakote) 250 mg DAILY PO Last administered on 10/01/17 10: 32; Start 09/15/17 at 09:00 Donepezil HCl (Aricept) 5 mg DAILY PO Last administered on 10/01/17 10:32; Start 09/15/17 at 09:00 Non-Formulary Medication 5 mg BID SL ; Start 09/15/17 at 09:00; Stop 09/15/17 at 09:00; Status DC Divalproex Sodium (Depakote) 1,000 mg QHS PO Last administered on 09/30/17 18: 35; Start 09/15/17 at 21:00 Haloperidol (Haldol) 10 mg BID PO Last administered on 09/30/17 18:35; Start 09/15/17 at 09:00; Stop 09/30/17 at 19:06; Status DC Ada Carbonate 300 mg BID PO Last administered on 10/01/17 10:32; Start at 09:00 Risperidone (RisperDAL) 3 mg BID PO Last administered on 09/24/17 09:00; Start 09/15/17 at 09:00; Stop 09/24/17 at 19:25; Status DC Nicotine (Nicoderm Cq 14mg) 1 patch 1X ONCE TD Last administered on 04:38; Start 09/15/17 at 04:30; Stop 09/15/17 at 04:35; Status DC Olanzapine (ZyPREXA ZYDIS) 2.5 mg PRN Q2HR PRN PO PSYCHOSIS; Start 09/15/17 at 05:15 Acetaminophen (Tylenol) 650 mg PRN Q4HRS PRN PO PAIN / TEMP Last administered on 09/21/17 21:28; Start 09/15/17 at 07:45 Albuterol Sulfate (Ventolin Hfa) 1 puff PRN Q6HRS PRN IH FOR ASTHMA; Start at 07:45; Stop 09/15/17 at 08:06; Status DC Cetirizine HCl (ZyrTEC) 10 mg DAILY PO Last administered on 10/01/17 10:32; Start 09/15/17 at 09:00 Vitamin D (Vitamin D3) 2,000 unit DAILY PO Last administered on 10/01/17 10:35 ; Start 09/15/17 at 09:00 Fenofibrate (Tricor) 48 mg QHS PO Last administered on 09/30/17 18:36; Start 09/15/17 at 21:00 Guaifenesin (Robitussin) 100 mg PRN Q4HRS PRN PO COUGH; Start 09/15/17 at 07: 45 Levothyroxine Sodium (Synthroid) 75 mcg DAILY07 PO Last administered on 05:21; Start 09/15/17 at 08:00; Stop 09/16/17 at 15:10; Status DC Polyethylene Glycol (miraLAX) 17 gm QPM PO Last administered on 09/30/17 18:33 ; Start 09/15/17 at 18:00 Sennosides (Senna) 8.6 mg BID PO Last administered on 10/01/17 10:32; Start 09/15/17 at 09:00 Tramadol HCl (Ultram) 50 mg Q6HRS PO Last administered on 10/01/17 18:06; Start 09/15/17 at 12:00 Gabapentin (Neurontin) 600 mg QHS PO Last administered on 09/30/17 18:35; Start 09/15/17 at 21:00 Non-Formulary Medication 150 mg [id number] IM ; Start 09/15/17 at 07:45; Stop at 07:53; Status DC Fish Oil (Fish Oil) 1,000 mg BID PO Last administered on 09/19/17 09:00; Start 09/15/17 at 09:00; Stop 09/20/17 at 14:50; Status DC Famotidine (Pepcid) 20 mg BID PO Last administered on 10/01/17 10:32; Start 09/15/17 at 09:00 Albuterol Sulfate (Ventolin) 2.5 mg PRN Q6HRS PRN NEB SHORTNESS OF BREATH; Start 09/15/17 at 08:00 Clozapine (Clozaril) 25 mg HS PO Last administered on 09/23/17 19:26; Start 09/15/17 at 21:00; Stop 09/24/17 at 19:25; Status DC Lidocaine (Lidoderm) 1 patch DAILY TD Last administered on 10/01/17 10:35; Start 09/16/17 at 15:15 Levothyroxine Sodium (Synthroid) 75 mcg DAILY07 PO ; Start 09/17/17 at 07:00; Stop 09/17/17 at 07:00; Status DC Levothyroxine Sodium (Synthroid) 50 mcg DAILY07 PO Last administered on 06:13; Start 09/17/17 at 07:00 Vitamin D (Vitamin D3) 50,000 unit WEEKLY PO Last administered on 10/01/17 10: 32; Start 09/17/17 at 18:00 Al Hydroxide/Mg Hydroxide (Mylanta Plus Xs) 30 ml PRN AFTMEALHC PRN PO DYSPEPSIA Last administered on 09/22/17 07:32; Start 09/18/17 at 18:00 Magnesium Hydroxide (Milk Of Magnesia) 2,400 mg PRN DAILY PRN PO CONSTIPATION Last administered on 09/27/17 17:05; Start 09/18/17 at 19:45 Clozapine (Clozaril) 50 mg HS PO Last administered on 09/30/17 18:35; Start 09/24/17 at 21:00; Stop 10/01/17 at 18:30; Status DC Risperidone (RisperDAL) 2.5 mg BID PO Last administered on 09/25/17 09:05; Start 09/24/17 at 21:00; Stop 09/25/17 at 18:32; Status DC Trazodone HCl (Desyrel) 100 mg QHS PO Last administered on 09/30/17 18:34; Start 09/24/17 at 21:00 Trazodone HCl (Desyrel) 100 mg PRN QHS PRN PO INSOMNIA Last administered on 22:04; Start 09/24/17 at 19:30 Risperidone (RisperDAL) 3 mg BID PO Last administered on 09/29/17 08:38; Start 09/25/17 at 21:00; Stop 09/29/17 at 09:11; Status DC Nicotine Polacrilex (Nicorette Gum) 2 mg PRN Q1HR PRN BC SMOKING CESSATION Last administered on 10/01/17 06:37; Start 09/27/17 at 14:15 Risperidone (RisperDAL) 2.5 mg BID PO Last administered on 10/01/17 10:30; Start 09/29/17 at 21:00 Haloperidol (Haldol) 7.5 mg BID PO Last administered on 10/01/17 10:31; Start 09/30/17 at 21:00 Clozapine (Clozaril) 75 mg HS PO ; Start 10/01/17 at 21:00 Active Scripts Active Reported Zantac (Ranitidine Hcl) 150 Mg Tablet 150 Mg PO BID Vitamin D3 (Cholecalciferol (Vitamin D3)) 1,000 Unit Tablet 2,000 Unit PO DAILY Tylenol (Acetaminophen) 325 Mg Tablet 650 Mg PO PRN Q4HRS PRN Senna (Sennosides) 8.6 Mg Tablet 8.6 Mg PO BID Saphris (Asenapine Maleate) 5 Mg Tab.subl 5 Mg SL BID Invega (Paliperidone) 6 Mg Tab.er.24 6 Mg PO DAILY Miralax (Polyethylene Glycol 3350) 119 Gm Powder 17 Gm PO QPM [place] Carbonate 300 Mg Capsule 300 Mg PO BID Levothyroxine Sodium 75 Mcg Tablet 75 Mcg PO DAILY07 Haloperidol 10 Mg Tablet 10 Mg PO BID Mag-Tussin (Guaifenesin) 100 Mg/5 Ml Liquid 100 Mg PO PRN Q4HRS PRN Gabapentin 600 Mg Tablet 600 Mg PO QHS [place] 3 1,000 Mg Softgel ([place]-3 Fatty Acids/Fish Oil) 1 Each Capsule 1,000 Mg PO BID Fenofibrate (Fenofibrate Nanocrystallized) 48 Mg Tablet 48 Mg PO QHS Aricept (Donepezil Hcl) 5 Mg Tablet 5 Mg PO DAILY Depakote (Divalproex Sodium) 500 Mg Tablet.dr 1,000 Mg PO QHS Depakote (Divalproex Sodium) 250 Mg Tablet.dr 250 Mg PO DAILY Depo-Provera (Medroxyprogesterone Acetate) 150 Mg/1 Ml Disp.syrin 150 Mg IM [id number] Cetirizine Hcl 10 Mg Tablet 10 Mg PO DAILY Benztropine Mesylate 1 Mg Tablet 1 Mg PO BID Ventolin Hfa Inhaler (Albuterol Sulfate) 18 Gm Hfa.aer.ad 1 Puff IH PRN Q6HRS PRN Tramadol Hcl (Tramadol HCl) 50 Mg Tablet 50 Mg PO Q6HRS Diagnosis: Problems: (1) Anxiety disorder (2) Bipolar affective, mixed, sev w/ psych (3) Schizoaffective disorder, chronic condition with acute exacerbation JEREMIAS FOSTER MD Oct 01, 2017 19:40
[2017-10-01] MEDS: cloZAPine 25 MG TABLET PO SCH (19:58)
[2017-10-01] MEDS: traZODone 100 MG TABLET. PO SCH (19:59)
[2017-10-01] MEDS: GABAPENTIN 300 MG CAPSULE. PO SCH (20:00)
[2017-10-01] MEDS: FENOFIBRATE NANOCRYSTALLIZED 48 MG TABLET PO SCH (20:05)
[2017-10-01] MEDS: traZODone 100 MG TABLET. PO PRN (23:05)
[2017-10-02] MEDS: traMADol 50 MG TABLET PO SCH ×3 (06:15→17:39)
[2017-10-02] MEDS: LEVOTHYROXINE 50 MCG TABLET PO SCH (06:15)
[2017-10-02 06:33] VITALS: BP 111/71
[2017-10-02] MEDS: HALOPERIDOL 5 MG TABLET PO SCH ×2 (08:14→19:46)
[2017-10-02] MEDS: DIVALPROEX SODIUM 250 MG TABLET.DR. PO SCH ×2 (08:14→19:46)
[2017-10-02] MEDS: LIDOCAINE (700MG/PATCH) PATCH. TD SCH (08:14)
[2017-10-02] MEDS: CHOLECALCIFEROL (VITAMIN D3) 1,000 UNIT TABLET PO SCH (08:15)
[2017-10-02] MEDS: CETIRIZINE HCL 10 MG TABLET PO SCH (08:15)
[2017-10-02] MEDS: BENZTROPINE MESYLATE 1 MG TABLET PO SCH ×2 (08:15→19:46)
[2017-10-02] MEDS: DONEPEZIL HCL 5 MG TABLET. PO SCH (08:15)
[2017-10-02] MEDS: FAMOTIDINE 20 MG TABLET PO SCH ×2 (08:15→19:46)
[2017-10-02] MEDS: LITHIUM CARBONATE 150 MG CAPSULE. PO SCH ×2 (08:16→19:49)
[2017-10-02] MEDS: risperiDONE 1 MG TABLET. PO SCH ×2 (08:16→19:46)
[2017-10-02] MEDS: SENNOSIDES 8.6 MG TABLET PO SCH ×2 (08:16→19:46)
--- NOTE | 2017-10-02 09:48 | PN ---
DATE: 09/30/2017 This late entry 09/30/2017 covers elements not covered in my initial note of 09/30/2017. SUBJECTIVE: I met with the patient in her room the evening of 09/30/2017. She remains somewhat irritable, demanding, manipulative at times, wanting a table and a pen to write her autobiography. Nursing staff will help facilitate some of this. REVIEW OF SYSTEMS: No CV, , pulmonary, eye, ENT system symptoms on review. Reliability varies. MENTAL STATUS EXAM: Oriented, reasonably well. Speech is coherent, abstraction fair, computation impaired, language function intact, somewhat anxious, suspicious at times. LABORATORY DATA: Reviewed. IMPRESSION: Unchanged from initial note. PLAN: Reduce Haldol, starting 10/01/2017 down to 7.5 mg twice a day. We may need to increase Clozaril on 10/01/2017 after we have another CBC, absolute neutrophil counts. Maintain the rest of psychotropics, unchanged. Reviewed drug contractions. Risk/benefit ratio favors no further change. MAN Leo FOSTER MD DR: REX/maite JOB#: [id number] / [id number]
[2017-10-02] MEDS: POLYETHYLENE GLYCOL 3350 17 GM PACKET. PO SCH (16:22)
[2017-10-02 16:28] VITALS: BP 122/86
[2017-10-02] MEDS: NICOTINE POLACRILEX GUM 2 MG GUM. BC PRN ×2 (16:31→19:55)
[2017-10-02] MEDS: traZODone 100 MG TABLET. PO SCH (19:45)
[2017-10-02] MEDS: GABAPENTIN 300 MG CAPSULE. PO SCH (19:46)
[2017-10-02] MEDS: cloZAPine 25 MG TABLET PO SCH (19:47)
[2017-10-02] MEDS: FENOFIBRATE NANOCRYSTALLIZED 48 MG TABLET PO SCH (19:49)
[2017-10-02] MEDS: MAG HYDROX/AL HYDROX/SIMETH 30 ML ORAL.SUSP PO PRN (21:05)
--- NOTE | 2017-10-02 21:38 | PDOC ---
Exam Abe Demential Exam: Abe Note: Please also refer to the separate dictated note~for this date of service dictated separately.~Patient seen individually. Discussed the patient with Nursing staff reviewed the chart.~Reviewed interim history and current functioning. Reviewed vital signs,~Labs/ Radiology~and current medications noted below. Continue current treatment with the changes noted in the dictated addendum note Assessment: Vital Signs: Vital Signs Date Time Temp Pulse Resp B/P (MAP) Pulse Ox O2 Delivery O2 Flow Rate FiO2 10/02/17 19:47 18 Room Air 10/02/17 16:28 97.0 73 122/86 (98) 98 I&O Intake and Output 10/03/17 07:00 Intake Total 1560 ml Balance 1560 ml Intake Oral 1560 ml Current Medications: Meds: Current Medications Nicotine (Nicoderm Cq 14mg) 1 patch DAILY TD Last administered on 09/27/17 07: 55; Start 09/16/17 at 09:00; Stop 09/27/17 at 14:12; Status DC Benztropine Mesylate (Cogentin) 1 mg BID PO Last administered on 10/02/17 19: 46; Start 09/15/17 at 09:00 Divalproex Sodium (Depakote) 250 mg DAILY PO Last administered on 10/02/17 08: 14; Start 09/15/17 at 09:00 Donepezil HCl (Aricept) 5 mg DAILY PO Last administered on 10/02/17 08:15; Start 09/15/17 at 09:00 Non-Formulary Medication 5 mg BID SL ; Start 09/15/17 at 09:00; Stop 09/15/17 at 09:00; Status DC Divalproex Sodium (Depakote) 1,000 mg QHS PO Last administered on 10/02/17 19: 46; Start 09/15/17 at 21:00 Haloperidol (Haldol) 10 mg BID PO Last administered on 09/30/17 18:35; Start 09/15/17 at 09:00; Stop 09/30/17 at 19:06; Status DC [place] Carbonate 300 mg BID PO Last administered on 10/02/17 19:49; Start at 09:00 Risperidone (RisperDAL) 3 mg BID PO Last administered on 09/24/17 09:00; Start 09/15/17 at 09:00; Stop 09/24/17 at 19:25; Status DC Nicotine (Nicoderm Cq 14mg) 1 patch 1X ONCE TD Last administered on 04:38; Start 09/15/17 at 04:30; Stop 09/15/17 at 04:35; Status DC Olanzapine (ZyPREXA ZYDIS) 2.5 mg PRN Q2HR PRN PO PSYCHOSIS; Start 09/15/17 at 05:15 Acetaminophen (Tylenol) 650 mg PRN Q4HRS PRN PO PAIN / TEMP Last administered on 09/21/17 21:28; Start 09/15/17 at 07:45 Albuterol Sulfate (Ventolin Hfa) 1 puff PRN Q6HRS PRN IH FOR ASTHMA; Start at 07:45; Stop 09/15/17 at 08:06; Status DC Cetirizine HCl (ZyrTEC) 10 mg DAILY PO Last administered on 10/02/17 08:15; Start 09/15/17 at 09:00 Vitamin D (Vitamin D3) 2,000 unit DAILY PO Last administered on 10/02/17 08:15 ; Start 09/15/17 at 09:00 Fenofibrate (Tricor) 48 mg QHS PO Last administered on 10/02/17 19:49; Start 09/15/17 at 21:00 Guaifenesin (Robitussin) 100 mg PRN Q4HRS PRN PO COUGH; Start 09/15/17 at 07: 45 Levothyroxine Sodium (Synthroid) 75 mcg DAILY07 PO Last administered on 05:21; Start 09/15/17 at 08:00; Stop 09/16/17 at 15:10; Status DC Polyethylene Glycol (miraLAX) 17 gm QPM PO Last administered on 09/30/17 18:33 ; Start 09/15/17 at 18:00 Sennosides (Senna) 8.6 mg BID PO Last administered on 10/02/17 19:46; Start 09/15/17 at 09:00 Tramadol HCl (Ultram) 50 mg Q6HRS PO Last administered on 10/02/17 17:39; Start 09/15/17 at 12:00 Gabapentin (Neurontin) 600 mg QHS PO Last administered on 10/02/17 19:46; Start 09/15/17 at 21:00 Non-Formulary Medication 150 mg [id number] IM ; Start 09/15/17 at 07:45; Stop at 07:53; Status DC Fish Oil (Fish Oil) 1,000 mg BID PO Last administered on 09/19/17 09:00; Start 09/15/17 at 09:00; Stop 09/20/17 at 14:50; Status DC Famotidine (Pepcid) 20 mg BID PO Last administered on 10/02/17 19:46; Start 09/15/17 at 09:00 Albuterol Sulfate (Ventolin) 2.5 mg PRN Q6HRS PRN NEB SHORTNESS OF BREATH; Start 09/15/17 at 08:00 Clozapine (Clozaril) 25 mg HS PO Last administered on 09/23/17 19:26; Start 09/15/17 at 21:00; Stop 09/24/17 at 19:25; Status DC Lidocaine (Lidoderm) 1 patch DAILY TD Last administered on 10/02/17 08:14; Start 09/16/17 at 15:15 Levothyroxine Sodium (Synthroid) 75 mcg DAILY07 PO ; Start 09/17/17 at 07:00; Stop 09/17/17 at 07:00; Status DC Levothyroxine Sodium (Synthroid) 50 mcg DAILY07 PO Last administered on 06:15; Start 09/17/17 at 07:00 Vitamin D (Vitamin D3) 50,000 unit WEEKLY PO Last administered on 10/01/17 10: 32; Start 09/17/17 at 18:00 Al Hydroxide/Mg Hydroxide (Mylanta Plus Xs) 30 ml PRN AFTMEALHC PRN PO DYSPEPSIA Last administered on 10/02/17 21:05; Start 09/18/17 at 18:00 Magnesium Hydroxide (Milk Of Magnesia) 2,400 mg PRN DAILY PRN PO CONSTIPATION Last administered on 09/27/17 17:05; Start 09/18/17 at 19:45 Clozapine (Clozaril) 50 mg HS PO Last administered on 09/30/17 18:35; Start 09/24/17 at 21:00; Stop 10/01/17 at 18:30; Status DC Risperidone (RisperDAL) 2.5 mg BID PO Last administered on 09/25/17 09:05; Start 09/24/17 at 21:00; Stop 09/25/17 at 18:32; Status DC Trazodone HCl (Desyrel) 100 mg QHS PO Last administered on 10/02/17 19:45; Start 09/24/17 at 21:00 Trazodone HCl (Desyrel) 100 mg PRN QHS PRN PO INSOMNIA Last administered on 23:05; Start 09/24/17 at 19:30 Risperidone (RisperDAL) 3 mg BID PO Last administered on 09/29/17 08:38; Start 09/25/17 at 21:00; Stop 09/29/17 at 09:11; Status DC Nicotine Polacrilex (Nicorette Gum) 2 mg PRN Q1HR PRN BC SMOKING CESSATION Last administered on 10/02/17 19:55; Start 09/27/17 at 14:15 Risperidone (RisperDAL) 2.5 mg BID PO Last administered on 10/02/17 19:46; Start 09/29/17 at 21:00 Haloperidol (Haldol) 7.5 mg BID PO Last administered on 10/02/17 19:46; Start 09/30/17 at 21:00 Clozapine (Clozaril) 75 mg HS PO Last administered on 10/02/17 19:47; Start 10/01/17 at 21:00 Active Scripts Active Reported Zantac (Ranitidine Hcl) 150 Mg Tablet 150 Mg PO BID Vitamin D3 (Cholecalciferol (Vitamin D3)) 1,000 Unit Tablet 2,000 Unit PO DAILY Tylenol (Acetaminophen) 325 Mg Tablet 650 Mg PO PRN Q4HRS PRN Senna (Sennosides) 8.6 Mg Tablet 8.6 Mg PO BID Saphris (Asenapine Maleate) 5 Mg Tab.subl 5 Mg SL BID Invega (Paliperidone) 6 Mg Tab.er.24 6 Mg PO DAILY Miralax (Polyethylene Glycol 3350) 119 Gm Powder [address] Carbonate 300 Mg Capsule 300 Mg PO BID Levothyroxine Sodium 75 Mcg Tablet 75 Mcg PO DAILY07 Haloperidol 10 Mg Tablet 10 Mg PO BID Mag-Tussin (Guaifenesin) 100 Mg/5 Ml Liquid 100 Mg PO PRN Q4HRS PRN Gabapentin 600 Mg Tablet 600 Mg PO QHS [place] 3 1,000 Mg Softgel ([place]-3 Fatty Acids/Fish Oil) 1 Each Capsule 1,000 Mg PO BID Fenofibrate (Fenofibrate Nanocrystallized) 48 Mg Tablet 48 Mg PO QHS Aricept (Donepezil Hcl) 5 Mg Tablet 5 Mg PO DAILY Depakote (Divalproex Sodium) 500 Mg Tablet.dr 1,000 Mg PO QHS Depakote (Divalproex Sodium) 250 Mg Tablet.dr 250 Mg PO DAILY Depo-Provera (Medroxyprogesterone Acetate) 150 Mg/1 Ml Disp.syrin 150 Mg IM [id number] Cetirizine Hcl 10 Mg Tablet 10 Mg PO DAILY Benztropine Mesylate 1 Mg Tablet 1 Mg PO BID Ventolin Hfa Inhaler (Albuterol Sulfate) 18 Gm Hfa.aer.ad 1 Puff IH PRN Q6HRS PRN Tramadol Hcl (Tramadol HCl) 50 Mg Tablet 50 Mg PO Q6HRS Diagnosis: Problems: (1) Anxiety disorder (2) Bipolar affective, mixed, sev w/ psych (3) Schizoaffective disorder, chronic condition with acute exacerbation JEREMIAS FOSTER MD Oct 02, 2017 21:38
[2017-10-03] MEDS ORDERED: CHOL500050 PO (01:40)
[2017-10-03] MEDS ORDERED: HALO5TAB PO (01:44)
[2017-10-03] MEDS ORDERED: LEVO50TA5 PO (01:45)
[2017-10-03] MEDS ORDERED: Lidoderm TD (01:48)
[2017-10-03] MEDS ORDERED: MAG30ORA2 PO (01:49)
[2017-10-03] MEDS ORDERED: MAGN400O7 PO (01:49)
[2017-10-03] MEDS ORDERED: NICO2GUM5 BC (01:51)
[2017-10-03] MEDS ORDERED: OLAN2.5T3 PO (01:52)
[2017-10-03] MEDS ORDERED: CLOZ25TA PO (01:54)
[2017-10-03] MEDS ORDERED: RISP2TAB3 PO (01:56)
[2017-10-03] MEDS ORDERED: TRAZ-90 PO ×2 (01:57)
[2017-10-03 06:07] VITALS: BP 105/68
[2017-10-03] MEDS: LEVOTHYROXINE 50 MCG TABLET PO SCH (07:15)
[2017-10-03] MEDS: traMADol 50 MG TABLET PO SCH ×3 (07:15→12:32)
--- NOTE | 2017-10-03 07:48 | PN ---
DATE: 10/01/2017 This is a late entry for date of service 10/01/2017 and covers elements not covered in my initial note of 10/01/2017. I met with the patient the evening of 10/01/2017 at some length. She has been manipulative per nursing report the previous evening, somewhat delusional, believing her brother was picking her up, slept 7-1/2 hours. Appetite 40%. REVIEW OF SYSTEMS: No CV, , pulmonary, eye, ENT system symptoms on review. MENTAL STATUS EXAM: Oriented to herself and situation. Speech is coherent, abstraction fair, computation impaired, language function intact, attention span short. Mood and affect remain somewhat labile. LABORATORY DATA: Reviewed. IMPRESSION: Unchanged from initial note. PLAN: Absolute neutrophil count and CBC are unremarkable on the Clozaril 50 mg at bedtime. We will increase Clozaril to 75 mg at bedtime, Haldol has been reduced to 7.5 mg b.i.d. and Risperdal has been reduced to 2.5 mg b.i.d. Maintain the rest of psychotropics and change. Reviewed drug interactions, risk/benefit ratio favors no further change. JEREMIAS FOSTER MD DR: REX/maite JOB#: [id number] / [id number]
[2017-10-03] MEDS: CHOLECALCIFEROL (VITAMIN D3) 1,000 UNIT TABLET PO SCH (08:07)
[2017-10-03] MEDS: DONEPEZIL HCL 5 MG TABLET. PO SCH (08:07)
[2017-10-03] MEDS: BENZTROPINE MESYLATE 1 MG TABLET PO SCH (08:07)
[2017-10-03] MEDS: LITHIUM CARBONATE 150 MG CAPSULE. PO SCH (08:08)
[2017-10-03] MEDS: FAMOTIDINE 20 MG TABLET PO SCH (08:08)
[2017-10-03] MEDS: HALOPERIDOL 5 MG TABLET PO SCH (08:08)
[2017-10-03] MEDS: risperiDONE 1 MG TABLET. PO SCH (08:09)
[2017-10-03] MEDS: CETIRIZINE HCL 10 MG TABLET PO SCH (08:09)
[2017-10-03] MEDS: DIVALPROEX SODIUM 250 MG TABLET.DR. PO SCH (08:09)
[2017-10-03] MEDS: SENNOSIDES 8.6 MG TABLET PO SCH (08:09)
[2017-10-03] MEDS: LIDOCAINE (700MG/PATCH) PATCH. TD SCH (08:10)
--- NOTE | 2017-10-03 23:22 | PN ---
DATE: 10/02/2017 PSYCHIATRIC PROGRESS NOTE This is a late entry for 10/02/2017, covers elements not covered in my initial note of 10/02/2017. SUBJECTIVE: I met with the patient the evening of 10/02/2017 in her room and later she kept coming back with further questions about discharge plans. I addressed these with her. The previous evening, she was somewhat delusional, angry, but she is insistent on discharge on 10/03/2017, addressed this with her at some length. Refused to shower on 10/02/2017. REVIEW OF SYSTEMS: No CV, , pulmonary, eye, ENT system symptoms on review. MENTAL STATUS EXAM: Reasonably oriented. Speech is coherent, at times a little pressured. Abstraction fair, computation somewhat impaired, language function intact, attention span short. Mood and affect, lability is overall improved. LABORATORY DATA: Reviewed. IMPRESSION: Unchanged from initial note. PLAN: Continue current psychotropics mentioned in my initial note including the increased Clozaril 75 mg p.o. at bedtime. Maintain the rest unchanged. Reviewed drug interactions. Risk/benefit ratio favors no further change. MAN Leo FOSTER MD DR: REX/maite JOB#: [id number] / [id number]
--- NOTE | 2017-10-04 22:33 | DS ---
DATE OF DISCHARGE: 10/03/2017 DISCHARGE SUMMARY REASON FOR ADMISSION: Please refer to the admission history for details. Briefly, the patient is a 52-year-old female referred to us from [facility] on account of her worsening acute exacerbation of her schizoaffective disorder, bipolar type with psychotic features. The patient has been yelling and threatening to kill other residents, hearing voices, and refusing medications. She had failed outpatient psychiatric interventions resulting in this referral. SIGNIFICANT FINDINGS AND CLINICAL COURSE: Following admission, the patient was seen daily individually by myself, followed medically per Dr. Mas/Dr. Castillo. She is extremely psychotic, labile. Initially, agitated and delusional. Adjustments were made in her psychotropics. She had failed multiple antipsychotics in the past including her current dosages of Haldol 10 mg b.i.d., Risperdal 3 mg twice a day together with mood stabilizers, lithium and Depakote. Given all of this, it was felt it would be prudent to start her on Clozaril with expectation to taper and stop the other antipsychotics. Clozaril was initiated with weekly CBC, absolute neutrophil counts being monitored and this was increased to 75 mg p.o. at bedtime prior to discharge. Risperdal was reduced to 2.5 mg b.i.d., Haldol to 7.5 mg b.i.d. with recommendation to taper the Haldol down by 2.5 mg a day every 1 to 2 weeks till it is discontinued and Risperdal 0.5 mg daily every 1 to 2 weeks till it is discontinued as the Clozaril is increased to a therapeutic dosage. Valproic acid level was therapeutic at 65 on lithium at 0.6 mEq/L. She seemed to respond to a combination of the above together with Cogentin 1 mg b.i.d., Depakote 250 mg in the morning and 1000 mg at bedtime, Aricept 5 mg a day together with lithium 300 mg b.i.d., Haldol 7.5 mg b.i.d., Risperdal 2.5 mg b.i.d., Zyprexa p.r.n., trazodone 100 mg at bedtime, may repeat x 1 for insomnia. CONDITION ON DISCHARGE: Improved. REVIEW OF SYSTEMS: No CV, , pulmonary, eye, ENT system symptoms on review. MENTAL STATUS EXAM: Oriented to herself and situation. Speech coherent, abstraction fair, computation impaired, language function intact. Mood and affect, lability improved, less psychotic. No suicidal or homicidal ideation. FINAL DIAGNOSES: Schizoaffective disorder, bipolar type, mixed with psychotic features, in partial remission; anxiety disorder, unspecified; impulse control disorder, unspecified. Rest diagnoses, unchanged. DISCHARGE MEDICATIONS: Please refer to the MRAD. DISCHARGE INSTRUCTIONS: Outpatient psychiatric and medical followup at the group home. Time for discharge day management greater than 30 minutes. MAN Leo FOSTER MD DR: REX/maite JOB#: [id number] / [id number]
== END 2017-10-03 16:01 | disposition home or self-care (01) | DRG 885 ==
LOC: ER 22:03 → GEROPSY 09-15 04:17
PROVIDERS: ADMIT Psychiatry & Neurology Psychiatry; ATTEND Psychiatry & Neurology Psychiatry
DX: F25.0 Schizoaffective disorder, bipolar type (principal); F03.91 Unspecified dementia, unspecified severity, with behavioral disturbance; B19.20 Unspecified viral hepatitis C without hepatic coma; E03.9 Hypothyroidism, unspecified; B35.1 Tinea unguium; M21.611 Bunion of right foot; E61.1 Iron deficiency; F41.9 Anxiety disorder, unspecified; F63.9 Impulse disorder, unspecified; G47.00 Insomnia, unspecified; F60.3 Borderline personality disorder; I10 Essential (primary) hypertension; J44.9 Chronic obstructive pulmonary disease, unspecified; K21.9 Gastro-esophageal reflux disease without esophagitis; F91.9 Conduct disorder, unspecified; M19.90 Unspecified osteoarthritis, unspecified site; Z79.899 Other long term (current) drug therapy
CPT/HCPCS: 36415; 70450; 71010; 73630; 80048; 80053; 80061; 80076; 80164; 80178; 80307; 81001; 82306; 82607; 83036; 83540; 83550; 83735; 84436; 84443; 84480; 85025; 86592; 86593; 93005; 99406; 99407; G0480; 99285-25; G0479